=== PATIENT | male | born 1945 | race Caucasian/White ===

== ENCOUNTER 2017-12-14 22:47 | Inpatient (IN) | payer MEDICARE, OTHER, SELFPAY ==
[2017-12-14 22:47] VITALS: BP 155/76; PULSE 65; RESP 20; TEMP 37; O2SAT 97; BMI 27.6
--- NOTE | 2017-12-14 22:50 | EKG12_ITS ---
Test Reason : CP Blood Pressure : / mmHG Vent. Rate : 057 BPM Atrial Rate : 057 BPM P-R Int : 188 ms QRS Dur : 090 ms QT Int : 434 ms P-R-T Axes : 047 031 063 degrees QTc Int : [address]-segment abnormality: consider anterior-lateral myocardial injury/infarct: possibly acute Confirmed by ABRAHAM AMIN, MARY GRACE ([id number]), news editor GLORIA KAY ([id number]) on 12/17/2017 10:29:33 AM Referred By: Uzair Ralph Confirmed By:MARY GRACE ROSARIO MD
[2017-12-14 22:55] VITALS: BP 158/75; PULSE 52; RESP 14; O2SAT 98
--- NOTE | 2017-12-14 22:58 | ED.VISSUMM ---
- ER Visit Summary Date of Service: 12/14/17 Chief Complaint: Chest pain History of Present Illness: The patient is a [address] Monique. He reports she has substernal chest pain that began 1 hour ago. It is a sharp pain that is 10 out of 10 at worst 9-10 currently. Is worsened by nothing. Transiently relieved by aspirin. He is diaphoretic and short of breath with this. He has never had anything like this before. Physical Examination: Vitals: Stable. Afebrile. General: Diaphoretic and ill appearing. Well-nourished and well-developed. Head: Normocephalic atraumatic. Neck: Supple, no lymphadenopathy. No JVD. Nontender. Cardiovascular: Regular rate and rhythm. No murmurs. Respiratory: No respiratory distress. Clear to auscultation bilaterally. Abdominal: Soft, nontender, nondistended, normal bowel sounds. No guarding, rebound, or peritoneal signs. Back: Nontender. Extremities: Nontender, no edema. Skin: Normal color, no rash. Neurologic: Alert and oriented ?3. Cranial nerves II through XII are intact. Normal strength and sensation. Psych: Normal affect. Test Results: EKG is sinus bradycardia at [address] elevation leads V3 and V4 with out reciprocal changes. However, this is a change from his last EKG in April 2013. Emergency Department Course and Treatment: Patient was seen immediately upon arrival in the emergency department. He had taken aspirin at home p.o. He was given Brilinta p.o. He was given a 4000 unit heparin bolus. Treatment Plan: Patient was discussed with Dr. Brandt and will be taken to the [facility]. Disposition: Admitted in serious condition. Impression: 1. ST elevation VA. 2. Critical care time 30 minutes. This note was generated with Podclass dictation software. It may contain incorrect words, spelling, and punctuation that were not noted in review of the chart prior to signing ED Disposition - Plan for ED Patient: Chief Complaint: Chest Pain Referrals: lFash Monique MD [Primary Care Provider] -
--- NOTE | 2017-12-14 23:00 | RAD_ITS ---
STUDY: X-RAY CHEST REASON FOR EXAM: Male, 72 years old. CHEST PAIN TECHNIQUE: Single frontal view of the chest. COMPARISON: None. FINDINGS: Chronic appearing increased interstitial lung markings. There is no demonstrated pleural abnormality. Normal heart size. Normal mediastinum and greg. Normal visualized pulmonary arteries. There is atherosclerotic calcification of the aortic arch with tortuosity. There are diffuse degenerative changes of the visualized thoracic spine. There is degenerative osteoarthritis of the bilateral shoulders. There is no demonstrated abnormality of the visualized soft tissue structures of the upper abdomen. RAD/Chest 1 View (Portable) IMPRESSION: There are no acute findings. Electronically Signed: Victor Hugo Minor MD at 23:29 EDT , Service support ,
[2017-12-14] MEDS: 0.9% Normal Saline 1,000 ML 150 ML IV (23:01)
[2017-12-14] MEDS: Aspirin 81 MG TAB.CHEW 324 MG PO (23:01)
[2017-12-14] MEDS: TICAGRELOR 90 MG TABLET 180 MG PO (23:01)
[2017-12-14] MEDS: Heparin Injection (Vial) 5,000 UNIT/ML VIAL 4000 UNIT IV (23:02)
--- NOTE | 2017-12-14 23:09 | PCM.HP.STD ---
Problem List (1) STEMI (ST elevation myocardial infarction) Status: Acute Qualifiers: Involved coronary artery: right coronary artery Qualified Code(s): I21.11 - ST elevation (STEMI) myocardial infarction involving right coronary artery Comment: Anterior STEMI (2) Elevated BP without diagnosis of hypertension Status: Acute (3) Osteoarthritis Status: Chronic Qualifiers: Osteoarthritis location: knee Osteoarthritis type: unspecified Laterality: left Qualified Code(s): M17.12 - Unilateral primary osteoarthritis, left knee History of Present Illness Date of Admission: 12/14/17 Chief Complaint: Chest pain The patient is a 72 y/o M w/ PMHx: OA, otherwise notably healthy and active on no routine medications who presents to the [facility] ED on 12/14/17 with history of onset mild substernal and central chest pressure, mild 1-2/10 without associated symptoms the day prior in the evening, lasting ~ 30 minutes and resolving with return of symptoms on day of ED presentation ~ 1 hour prior to presentation, noted to have been at rest but prior had been baling hay all day w/ onset similar region, more severe chest pressure, heaviness with associated diaphoresis, dyspnea. He denied any nausea or emesis. Upon initial onset he noted 1-2/10 discomfort and recurrence he rated 9/10. Upon evaluation he noted this was unchanged. He noted he was taking baby ASA daily but has not over the last 2 weeks. He notes he was supposed to have upcoming L TKR. In the ED work-up included T 98.6, heart rate 65, BP 155/76, respiratory rate 20, 97% on room air, CBC with WBC 10.5, hemoglobin 15.8, platelet 280 without left shift but mildly increased lymph, pending coag, pending BMP, pending urine, pending chest x-ray. Cardiology consulted per ED and requested Brilinta 180 mg po load, heparin 4000 units IV ?1, aspirin 324 mg po ?1 w/ pending cardiac catheterization and intervention as needed. Past Medical History Past Medical History (Chronic Problems): Chronic Problems Osteoarthritis (Chronic) Allergies No Known Allergies Allergy (Verified 12/14/17 22:47) Home Medications: Ambulatory Orders Medication Instructions Recorded NK [NK] 12/14/17 Surgical History: - - Ectomy, left knee arthroscopic surgery. Psychiatric History: No pertinent psych hx Lives: Spouse/ Significant Other Smoking Status: Former smoker - Patient notes quit approximately 21 years prior with 1 pack per day tobacco usage cigarette prior to this. Tobacco Use: Non-smoker Alcohol: None Drugs: None - *Family History Maternal History Items: No pertinent history Paternal History Items: - - Patient notes a paternal family history of heart disease, fatal MD at age 59. Review of Systems Constitutional: Reports: Malaise, Fatigue. Denies: Chills, Fever, Weight Change HEENT: Denies: Head Aches, Sinus Congestion, Sinus Drainage Cardiovascular: Reports: Chest Pain, Chest Pressure, Chest Tightness, Heaviness. Denies: Edema, Light Headedness, Orthopnea, Palpitations, Syncope Respiratory: Reports: Shortness of Breath. Denies: Cough, Shortness of breath at rest, Sputum production Gastrointestinal: Denies: Abdominal Pain, Nausea, Vomiting Genitourinary: Denies: Dysuria Musculoskeletal: Reports: Joint stiffness. Denies: Joint Pain, Joint Tenderness Skin: Denies: Rash, Wounds Neurological: Denies: Numbness, Tingling, Focal weakness Psychiatric: Denies: Anxiety, Depression, Homicidal Ideations, Suicidal Ideations Hematologic/ Lymphatic: Denies: Easy Bruising, Easy Bleeding VTE Information - Inpt Only VTE Present on Admission: No VTE Mechan Device Prophylaxis: SCD's VTE Pharm Prophylaxis ordered?: Yes Patient Problems: Active and Suspected Problems STEMI (ST elevation myocardial infarction) (Acute) Anterior STEMI Elevated BP without diagnosis of hypertension (Acute) Subjective: Laying in the ED bed, diaphoretic, ill-appearing, ongoing chest discomfort. Objective: Physical Examination: General: awake, alert, oriented x 3 and cooperative, seated upright in the ED bed fatigued appearance, diaphoretic, ill-appearing. Skin: normal color, turgor, no icterus, cyanosis. HEENT: AT/NC, EOMI, PERRLA, dry MM, no carotid bruits or JVD noted. Lungs: CTA bilaterally, moderate effort, mild decrease BL bases, no rales, ronchi or wheezing. Heart: Regular rate and rhythm; no gallop, rub audible. Abdomen: soft, NTTP, ND, normal BS, no HSM. Extremities: no cyanosis, clubbing, or edema, distal pulses intact. Neurological: patient awake, alert, oriented x 3; cognitive function intact; pupils equally reactive to light and accomodation; cranial nerves II-XII grossly normal, moving all 4 extremities, no focal deficits, strength related to severely globally decreased secondary to acute presentation. Psychiatric: affect appears overly anxious given acute MD ongoing, no acute evidence of depressive feelings. - Physical Exam Vital Signs Temp Pulse Resp BP Pulse Ox 98.6 F 65 14 158/75 H 97 12/14/17 22:47 12/14/17 22:47 12/14/17 22:55 12/14/17 22:55 12/14/17 22:47 Oxygen Flow Rate (L/min) 2 Oxygen Delivery Method Nasal Cannula Weight: 181 lb 10.574 oz Body Mass Index (BMI) 27.6 Laboratory Tests Past 24 Hrs 12/14/17 12/14/17 12/14/17 22:54 22:54 22:54 WBC Pending RBC Pending Hgb Pending Hct Pending MCV Pending MCH Pending MCHC Pending RDW Pending RDW Differential Pending Plt Count Pending Neut % (Auto) Pending Absolute Neuts (auto) Pending Total Counted Pending PT Pending INR Pending APTT Pending Sodium Pending Potassium Pending Chloride Pending Carbon Dioxide Pending Anion Gap Pending BUN Pending Creatinine Pending Est GFR (MDRD) Af Amer Pending Est GFR (MDRD) Non-Af Pending BUN/Creatinine Ratio Pending Glucose Pending Calcium Pending Troponin I Pending Assessment/Plan All Active Problems STEMI (ST elevation myocardial infarction) (Acute) Elevated BP without diagnosis of hypertension (Acute) The patient is a 72 y/o M w/ PMHx: OA, otherwise notably healthy and active on no routine medications who presents to the [facility] ED on 12/14/17 with history of onset mild substernal and central chest pressure, mild 1-2/10 without associated symptoms the day prior in the evening, lasting ~ 30 minutes and resolving with return of symptoms on day of ED presentation ~ 1 hour prior to presentation, noted to have been at rest but prior had been baling hay all day w/ onset similar region, more severe chest pressure, heaviness with associated diaphoresis, dyspnea. (1) Chest Pain w/ Acute STEMI: EKG in ED w/ ST elevations V3-V4 without reciprocal changes noted, changed from prior EKG 04/2013, CXR pending. Trop pending. Will admit to ICU following cardiac catheterization, maintain on a monitored bed, continue serial cardiac enzymes and EKGs. Obtain magnesium level upon admission. Continue medical management w/ asa, low dose BB with change per cardiology discretion given mild bradycardia noted upon ED presentation, add high dose statin w/ AM FLP, brillinta 90 mg BID to start in AM. Cardiology consulted, plan for cardiac catheterization. Maintain NPO pending cardiac catheterization. ASA, NG, morphine. (2) Elevated BP without HTN Dx: Given presentation with #1, start low dose BB, add additional agent RAHEL/ARB if appropriate per cardiology discretion, PRN labetolol/lopressor. (3) OA: Notes prior L knee OA w/ arthroscopic surgery w/ planned operative intervention in 2-3 weeks for L TKR, will need to be delayed until cleared per his Athletic Equipment Custodian pending interventions as noted. (4) GI Prophylaxis: Famotidine. (5) DVT Prophylaxis: SCDs, heparin 4000 IV x 1 as noted, start chemoprophylaxis if appropriate in AM. Code Visit Inpatient E&M: 42480 Init Hosp L3
--- NOTE | 2017-12-14 23:10 | ED.RN ---
PT STATES HE NOTICED PAIN YESTERDAY. BAILED HAY ALL DAY TODAY. PAIN STATED ABOUT AN HOUR RECRUITING COORDINATOR.
[2017-12-14 23:12] LABS: International Normalized Ratio 1.1
[2017-12-14 23:13] VITALS: BP 146/80; PULSE 59; RESP 15; O2SAT 100
[2017-12-14 23:13] LABS: Partial Thromboplast Time 25.3 Seconds (24.1-36.2)
--- NOTE | 2017-12-14 23:14 | HP.PCM_ITS ---
Problem List (1) STEMI (ST elevation myocardial infarction) Status: Acute Qualifiers: Involved coronary artery: right coronary artery Qualified Code(s): I21.11 - ST elevation (STEMI) myocardial infarction involving right coronary artery Comment: Anterior STEMI (2) Elevated BP without diagnosis of hypertension Status: Acute (3) Osteoarthritis Status: Chronic Qualifiers: Osteoarthritis location: knee Osteoarthritis type: unspecified Laterality : left Qualified Code(s): M17.12 - Unilateral primary osteoarthritis, left knee History of Present Illness Date of Admission: 12/14/17 Chief Complaint: Chest pain The patient is a 72 y/o M w/ PMHx: OA, otherwise notably healthy and active on no routine medications who presents to the [facility] ED on 12/14/17 with history of onset mild substernal and central chest pressure, mild 1-2/10 without associated symptoms the day prior in the evening, lasting ~ 30 minutes and resolving with return of symptoms on day of ED presentation ~ 1 hour prior to presentation, noted to have been at rest but prior had been baling hay all day w / onset similar region, more severe chest pressure, heaviness with associated diaphoresis, dyspnea. He denied any nausea or emesis. Upon initial onset he noted 1-2/10 discomfort and recurrence he rated 9/10. Upon evaluation he noted this was unchanged. He noted he was taking baby ASA daily but has not over the last 2 weeks. He notes he was supposed to have upcoming L TKR. In the ED work- up included T 98.6, heart rate 65, BP 155/76, respiratory rate 20, 97% on room air, CBC with WBC 10.5, hemoglobin 15.8, platelet 280 without left shift but mildly increased lymph, pending coag, pending BMP, pending urine, pending chest x-ray. Cardiology consulted per ED and requested Brilinta 180 mg po load, heparin 4000 units IV ?1, aspirin 324 mg po ?1 w/ pending cardiac catheterization and intervention as needed. Past Medical History Past Medical History (Chronic Problems): Chronic Problems Osteoarthritis (Chronic) Allergies No Known Allergies Allergy (Verified 12/14/17 22:47) Home Medications: Ambulatory Orders Medication Instructions Recorded NK [NK] 12/14/17 Surgical History: - - Ectomy, left knee arthroscopic surgery. Psychiatric History: No pertinent psych hx Lives: Spouse/ Significant Other Smoking Status: Former smoker - Patient notes quit approximately 21 years prior with 1 pack per day tobacco usage cigarette prior to this. Tobacco Use: Non-smoker Alcohol: None Drugs: None - *Family History Maternal History Items: No pertinent history Paternal History Items: - - Patient notes a paternal family history of heart disease, fatal MA at age 59. Review of Systems Constitutional: Reports: Malaise, Fatigue. Denies: Chills, Fever, Weight Change HEENT: Denies: Head Aches, Sinus Congestion, Sinus Drainage Cardiovascular: Reports: Chest Pain, Chest Pressure, Chest Tightness, Heaviness. Denies: Edema, Light Headedness, Orthopnea, Palpitations, Syncope Respiratory: Reports: Shortness of Breath. Denies: Cough, Shortness of breath at rest, Sputum production Gastrointestinal: Denies: Abdominal Pain, Nausea, Vomiting Genitourinary: Denies: Dysuria Musculoskeletal: Reports: Joint stiffness. Denies: Joint Pain, Joint Tenderness Skin: Denies: Rash, Wounds Neurological: Denies: Numbness, Tingling, Focal weakness Psychiatric: Denies: Anxiety, Depression, Homicidal Ideations, Suicidal Ideations Hematologic/ Lymphatic: Denies: Easy Bruising, Easy Bleeding VTE Information - Inpt Only VTE Present on Admission: No VTE Mechan Device Prophylaxis: SCD's VTE Pharm Prophylaxis ordered?: Yes Patient Problems: Active and Suspected Problems STEMI (ST elevation myocardial infarction) (Acute) Anterior STEMI Elevated BP without diagnosis of hypertension (Acute) Subjective: Laying in the ED bed, diaphoretic, ill-appearing, ongoing chest discomfort. Objective: Physical Examination: General: awake, alert, oriented x 3 and cooperative, seated upright in the ED bed fatigued appearance, diaphoretic, ill-appearing. Skin: normal color, turgor, no icterus, cyanosis. HEENT: AT/NC, EOMI, PERRLA, dry MM, no carotid bruits or JVD noted. Lungs: CTA bilaterally, moderate effort, mild decrease BL bases, no rales, ronchi or wheezing. Heart: Regular rate and rhythm; no gallop, rub audible. Abdomen: soft, NTTP, ND, normal BS, no HSM. Extremities: no cyanosis, clubbing, or edema, distal pulses intact. Neurological: patient awake, alert, oriented x 3; cognitive function intact; pupils equally reactive to light and accomodation; cranial nerves II-XII grossly normal, moving all 4 extremities, no focal deficits, strength related to severely globally decreased secondary to acute presentation. Psychiatric: affect appears overly anxious given acute MA ongoing, no acute evidence of depressive feelings. - Physical Exam Vital Signs Temp Pulse Resp BP Pulse Ox 98.6 F 65 14 158/75 H 97 12/14/17 22:47 12/14/17 22:47 12/14/17 22:55 12/14/17 22:55 12/14/17 22:47 Oxygen Flow Rate (L/min) 2 Oxygen Delivery Method Nasal Cannula Weight: 181 lb 10.574 oz Body Mass Index (BMI) 27.6 Laboratory Tests Past 24 Hrs 12/14/17 12/14/17 12/14/17 22:54 22:54 22:54 WBC Pending RBC Pending Hgb Pending Hct Pending MCV Pending MCH Pending MCHC Pending RDW Pending RDW Differential Pending Plt Count Pending Neut % (Auto) Pending Absolute Neuts (auto) Pending Total Counted Pending PT Pending INR Pending APTT Pending Sodium Pending Potassium Pending Chloride Pending Carbon Dioxide Pending Anion Gap Pending BUN Pending Creatinine Pending Est GFR (MDRD) Af Amer Pending Est GFR (MDRD) Non-Af Pending BUN/Creatinine Ratio Pending Glucose Pending Calcium Pending Troponin I Pending Assessment/Plan All Active Problems STEMI (ST elevation myocardial infarction) (Acute) Elevated BP without diagnosis of hypertension (Acute) The patient is a 72 y/o M w/ PMHx: OA, otherwise notably healthy and active on no routine medications who presents to the [facility] ED on 12/14/17 with history of onset mild substernal and central chest pressure, mild 1-2/10 without associated symptoms the day prior in the evening, lasting ~ 30 minutes and resolving with return of symptoms on day of ED presentation ~ 1 hour prior to presentation, noted to have been at rest but prior had been baling hay all day w / onset similar region, more severe chest pressure, heaviness with associated diaphoresis, dyspnea. (1) Chest Pain w/ Acute STEMI: EKG in ED w/ ST elevations V3-V4 without reciprocal changes noted, changed from prior EKG 04/2013, CXR pending. Trop pending. Will admit to ICU following cardiac catheterization, maintain on a monitored bed, continue serial cardiac enzymes and EKGs. Obtain magnesium level upon admission. Continue medical management w/ asa, low dose BB with change per cardiology discretion given mild bradycardia noted upon ED presentation, add high dose statin w/ AM FLP, brillinta 90 mg BID to start in AM. Cardiology consulted, plan for cardiac catheterization. Maintain NPO pending cardiac catheterization. ASA, NG, morphine. (2) Elevated BP without HTN Dx: Given presentation with #1, start low dose BB, add additional agent RAHEL/ARB if appropriate per cardiology discretion, PRN labetolol/lopressor. (3) OA: Notes prior L knee OA w/ arthroscopic surgery w/ planned operative intervention in 2-3 weeks for L TKR, will need to be delayed until cleared per his Electric Meter Tester pending interventions as noted. (4) GI Prophylaxis: Famotidine. (5) DVT Prophylaxis: SCDs, heparin 4000 IV x 1 as noted, start chemoprophylaxis if appropriate in AM. Code Visit Inpatient E&M: 23936 Init Hosp L3
[2017-12-14 23:18] LABS: Absolute Lymphocyte Count 4.82 X10^3/ul (0.83-4.51); Absolute Neutrophil Count 4.5 X10^3/uL (2.0-7.7); Basophil# 0.02 X10^3/uL; Basophil% 0.2 % (0-1); Eosinophil# 0.26 X10^3/uL; Eosinophils% 2.5 % (0-5); Hematocrit 46.4 % (40-54); Hemoglobin 15.8 g/dl (13.0-16.5); Lymphocyte # 4.82 X10^3/ul (4.0); Lymphocyte % 46.1 % (19-41); Mean Corp Hgb Conc 34.1 g/gl (32-36); Mean Corpuscular Hgb 30.9 pg (27.0-32.0); Mean Corpuscular Volume 90.6 fL (80-94); Mean Platelet Vol. 10.1 fl (6.2-12.0); Monocyte# 0.88 X10^3/uL; Monocyte% 8.4 % (0-10); Neutrophil # 4.46 X10^3/uL (2.7-7.7); Neutrophil % 42.6 % (47-70); POSITIVE COUNT NO; POSITIVE DIFFERENTIAL NO; POSITIVE MORPHOLOGY NO; Platelet Count 280 K/mm3 (150-450); RBC Distribution Width SD 42.9 fl (35.1-43.9); Red Blood Count 5.12 M/mm3 (4.6-6.2); White Blood Count 10.5 K/mm3 (4.4-11.0)
[2017-12-14 23:19] VITALS: BP 173/86; PULSE 58; RESP 20; O2SAT 100
[2017-12-14 23:21] LABS: Anion Gap 10 (5-15); BUN 14 mg/dL (7-18); BUN/Creat Ratio 12.2 RATIO (10-20); Calcium,Total 8.8 mg/dL (8.5-10.1); Chloride 105 mmol/L (98-107); Creatinine, Serum 1.15 mg/dL (0.70-1.30); EST Glomerular Filtration Rate 67 mL/min (>60); Est Glom Filt Rate - Afr Amer 80 mL/min (>60); Glucose 122 mg/dL (74-106); Potassium 3.2 mmol/L (3.5-5.1); Sodium Level 140 mmol/L (136-145)
--- NOTE | 2017-12-14 23:25 | ED.RN ---
BRIAR CUTTER READY. PT TRANSFERRED VIA CART ON O2 NC, LIFE PACK, ALL MONITORS. PT STABLE. FAMILY AT BEDSIDE. PLACED IN BRIAR CUTTER WAITING ROOM. BELONGINGS WITH FAMILY. BEDSIDE REPORT GIVEN TO BRIAR CUTTER NURSE.
[2017-12-15] VITALS (37 sets, daily range): BP systolic 96–156; BP diastolic 51–94; PULSE 46–65; RESP 10–22; TEMP 36.2–36.8; O2SAT 95–100; BMI 27.6
[2017-12-15 01:11] LABS: ACT Activated Clotting Time 208 sec (74-137)
[2017-12-15 01:11] LABS: ACT Activated Clotting Time 169 sec (74-137)
[2017-12-15 01:11] LABS: ACT Activated Clotting Time 505 sec (74-137)
--- NOTE | 2017-12-15 01:33 | EKG12_ITS ---
Test Reason : STEMI Blood Pressure : / mmHG Vent. Rate : 059 BPM Atrial Rate : 059 BPM P-R Int : 190 ms QRS Dur : 094 ms QT Int : 456 ms P-R-T Axes : 048 037 073 degrees QTc Int : [address]-segment abnormality: consider anterior-lateral myocardial injury/infarct: possibly acute Confirmed by ABRAHAM AMIN, MARY GRACE ([id number]), editor magazine GLORIA KAY ([id number]) on 12/17/2017 11:18:34 AM Referred By: Uzair Ralph Confirmed By:MARY GRACE ROSARIO MD
--- NOTE | 2017-12-15 01:33 | ECHOD_ITS ---
Reason For Study: chest pain Procedure This was a 2D Doppler, Color Flow transthoracic echocardiogram. The study was technically difficult. Exam performed portable in ICU/CCU. Left Ventricle Normal size and thickness. The estimated ejection fraction is 40 %. Stage 1 diastolic dysfunction. Anterio-Basal: Mildly hypokinetic. Mid-Anterior : Severely Hypokinetic. Anterior [place] : Akinetic. There are regional wall motion abnormalities as specified. Right Ventricle Normal size and thickness. Normal systolic function. Atria Normal left atrium. Normal right atrium. Normal atrial septum. Mitral Valve The mitral valve is structurally normal. No prolapse or stenosis seen. Tricuspid Valve Normal tricuspid valve. Trivial tricuspid valve insufficiency. Right ventricular systolic pressure estimated to be 18 mmHg. Aortic Valve Trisinus/trileaflet aortic valve. Severe focal aortic valve calcification. Moderate restriction of the aortic valve. Mild aortic stenosis. Pulmonic Valve Normal pulmonic valve. Great Vessels Normal aortic root. Normal arch. Normal inferior vena cava. Inferior vena cava collapse with sniff. Pericardium/Pleural No pericardial effusion. MMode/2D Measurements & Calculations LVIDd: 4.3 cm IVSd: 1.1 cm LVOT diam: 2.3 cm LVIDs: 3.3 cm LVPWd: 1.1 cm LVOT area: 4.3 cm2 RVDd: 2.7 cm FS: 22.3 % Ao root diam: 3.0 cm LAV(MOD-bp): 54.3 ml LA A4 area: 15.5 cm2 LA dimension: 4.2 cm LAV(MOD-bp) Indexed: 27.7 ml/m2 LAV(MOD-sp2): 50.4 ml LAV(MOD-sp4): 44.1 ml RA A4 area: 11.8 cm2 Doppler Measurements & Calculations MV E max alfred: 78.8 cm/sec Lat Peak E' Alfred: 6.5 cm/sec Med Peak E' Alfred: 5.8 cm/sec MV A max alfred: 91.8 cm/sec E/E' lat: 12.2 E/E' med: 13.6 MV E/A: 0.86 Ao V2 max: 163.3 cm/sec LV V1 max: 91.7 cm/sec PA V2 max: 93.5 cm/sec Ao max P.7 mmHg LV V1 max P.4 mmHg CINTHIA(V,D): 2.4 cm2 TR max alfred: 182.8 cm/sec TR max P.4 mmHg Interpretation Summary The estimated ejection fraction is 40 %. Stage 1 diastolic dysfunction. There are regional wall motion abnormalities as specified. Trivial tricuspid valve insufficiency. Right ventricular systolic pressure estimated to be 18 mmHg. Mild aortic stenosis, but may be underestimated due to poor LV function. Moderate restriction of the aortic valve. Severe calcification and immobile non coronary cusp of aortic valve. There is no comparison study available. Ordering Physician: Yenifer Crow Referring Physician: Uzair Ralph Performed By: Sonja Cedeño, NANCY, RVT
--- NOTE | 2017-12-15 01:54 | NURSING ---
Dr. Ralph at bedside to interchange sheaths. Changed from 6Fr to 7Fr sheath. Patient tolerated well.
[2017-12-15 02:25] LABS: Mean Corp Hgb Conc 34.1 g/gl (32-36); Mean Corpuscular Hgb 31.4 pg (27.0-32.0); Mean Corpuscular Volume 91.9 fL (80-94); Mean Platelet Vol. 9.9 fl (6.2-12.0); Platelet Count 196 K/mm3 (150-450); RBC Distribution Width CV 12.9 % (11.6-14.6); RBC Distribution Width SD 42.4 fl (35.1-43.9); Red Blood Count 4.46 M/mm3 (4.6-6.2); White Blood Count 10.8 K/mm3 (4.4-11.0)
[2017-12-15 02:27] LABS: Scan Indicated on CBC? Y/N NO
[2017-12-15 04:26] LABS: Hematocrit 41.4 % (40-54); Mean Corp Hgb Conc 33.8 g/gl (32-36); Mean Corpuscular Volume 91.6 fL (80-94); Platelet Count 203 K/mm3 (150-450); RBC Distribution Width SD 42.4 fl (35.1-43.9); Red Blood Count 4.52 M/mm3 (4.6-6.2); White Blood Count 9.3 K/mm3 (4.4-11.0)
[2017-12-15 04:34] LABS: Anion Gap 10 (5-15); BUN 12 mg/dL (7-18); BUN/Creat Ratio 13.3 RATIO (10-20); Calcium,Total 7.8 mg/dL (8.5-10.1); Chloride 106 mmol/L (98-107); Cholesterol 156 mg/dL (200); EST Glomerular Filtration Rate 88 mL/min (>60); Est Glom Filt Rate - Afr Amer 107 mL/min (>60); Estimated Creatinine Clearance 72.83 ml/min; Glucose 119 mg/dL (74-106); High Density Lipoprotein 49 mg/dL; Potassium 3.9 mmol/L (3.5-5.1); Sodium Level 143 mmol/L (136-145); Triglycerides 61 mg/dL; Very Low Density Lipoprotein 12 mg/dL (5-40)
[2017-12-15 05:36] LABS: Scan Indicated on CBC? Y/N NO
[2017-12-15 06:15] LABS: M R Staph aureus DNA By PCR Negative (Negative); Probe Check PASS; Specimen Processing Control PASS
[2017-12-15 07:16] LABS: ACT Activated Clotting Time 131 sec (74-137)
[2017-12-15 07:16] LABS: ACT Activated Clotting Time 0 sec (74-137)
--- NOTE | 2017-12-15 09:03 | PCM.PROGNOTE ---
Patient Problems: Active and Suspected Problems STEMI (ST elevation myocardial infarction) (Acute) Anterior STEMI Elevated BP without diagnosis of hypertension (Acute) Subjective: Chief complaint: Follow-up after admission for acute ST elevation MA. Patient seen and examined. No acute events overnight. He denies any complaints today. He denies any more chest pain. Denied shortness of breath, palpitation, dizziness or lightheadedness. His vital signs are stable. - Physical Exam General: Alert, Oriented x3, Cooperative, No apparent distress HEENT: Atraumatic, PERRLA, EOMI, Normocephalic Oral: Moist Mucosa, No Gingival or Mucosal Lesions/ Ulcerations Neck: Supple, No JVD, Negative Carotid Bruits, Trachea Midline, Thyroid Normal Size and Texture Lungs: Clear to auscultation, Normal air movement, No rhonchi, No wheeze, No rales Cardiovascular: Regular rate, Regular Rhythm, Normal S1, Normal S2, No murmurs Abdomen: Bowel Sounds Present, Soft, Non Tender, Non-Distended, No Hepato-splenomegaly Extremities: No clubbing, No cyanosis, No edema Skin: No rashes, No breakdown Lymphatic: No Cervical, Supraclavicular, or Inguinal Adenopathy Neurological: Cranial nerves II-XII grossly intact, Motor Exam 5/5 strength throughout Psych/Mental Status: Normal Affect, Appropriate, Alert and oriented to time, place, person, mood and affect Vital Signs Temp Pulse Resp BP Pulse Ox 97.6 F L 52 L 12 140/67 H 100 12/15/17 02:30 12/15/17 08:00 12/15/17 08:00 12/15/17 08:00 12/15/17 08:00 Oxygen Flow Rate (L/min) 2 Oxygen Delivery Method Room Air Weight: 181 lb 10.574 oz Body Mass Index (BMI) 27.6 Intake and Output for Last 24 Hours 12/13/17 12/14/17 12/15/17 23:59 23:59 23:59 Output Total 600 / 600 Balance -600 / -600 Laboratory Tests Past 24 Hrs 12/14/17 12/15/17 12/15/17 23:41 00:17 00:41 WBC RBC Hgb Hct MCV MCH MCHC RDW RDW Differential Plt Count MPV Activated Clotting Time 169 H 505 H 208 H Sodium Potassium Chloride Carbon Dioxide Anion Gap BUN Creatinine Estim Creat Clear Calc Est GFR (MDRD) Af Amer Est GFR (MDRD) Non-Af BUN/Creatinine Ratio Glucose Calcium Troponin I Triglycerides Cholesterol LDL Cholesterol VLDL Cholesterol HDL Cholesterol MRSA (PCR) 12/15/17 12/15/17 12/15/17 01:50 02:15 02:15 WBC 10.8 RBC 4.46 L Hgb 14.0 Hct 41.0 MCV 91.9 MCH 31.4 MCHC 34.1 RDW 12.9 RDW Differential 42.4 Plt Count 196 MPV 9.9 Activated Clotting Time Sodium Potassium Chloride Carbon Dioxide Anion Gap BUN Creatinine Estim Creat Clear Calc Est GFR (MDRD) Af Amer Est GFR (MDRD) Non-Af BUN/Creatinine Ratio Glucose Calcium Troponin I 15.200 H* Triglycerides Cholesterol LDL Cholesterol VLDL Cholesterol HDL Cholesterol MRSA (PCR) Negative 12/15/17 12/15/17 12/15/17 04:05 04:05 04:05 WBC 9.3 RBC 4.52 L Hgb 14.0 Hct 41.4 MCV 91.6 MCH 31.0 MCHC 33.8 RDW 13.0 RDW Differential 42.4 Plt Count 203 MPV 10.0 Activated Clotting Time Sodium 143 Potassium 3.9 Chloride 106 Carbon Dioxide 27.0 Anion Gap 10 BUN 12 Creatinine 0.90 Estim Creat Clear Calc 72.83 Est GFR (MDRD) Af Amer 107 Est GFR (MDRD) Non-Af 88 BUN/Creatinine Ratio 13.3 Glucose 119 H Calcium 7.8 L Troponin I 28.900 H* Triglycerides 61 Cholesterol 156 LDL Cholesterol 95 VLDL Cholesterol 12 HDL Cholesterol 49 MRSA (PCR) 12/15/17 12/15/17 06:47 07:03 WBC RBC Hgb Hct MCV MCH MCHC RDW RDW Differential Plt Count MPV Activated Clotting Time 0 L 131 Sodium Potassium Chloride Carbon Dioxide Anion Gap BUN Creatinine Estim Creat Clear Calc Est GFR (MDRD) Af Amer Est GFR (MDRD) Non-Af BUN/Creatinine Ratio Glucose Calcium Troponin I Triglycerides Cholesterol LDL Cholesterol VLDL Cholesterol HDL Cholesterol MRSA (PCR) Medical Necessity - Tobacco Use Smoking Status: Former smoker Assessment/Plan All Active Problems STEMI (ST elevation myocardial infarction) (Acute) Elevated BP without diagnosis of hypertension (Acute) This is a 72 years old male patient presented to the emergency room because of chest pain and he was found to have acute ST elevation MA. #1 acute STEMI: Status post cardiac authorization, stents to LAD and angioplasty, official cath report is pending. Patient is on aspirin, statins, lisinopril and Brilinta. His vital signs are stable, blood pressure under better control. He still symptomatic, no chest pain or shortness of breath. Lipid profile reviewed, revealed normal cholesterol, LDL is 95 and HDL is 49. Routine blood work was unremarkable. Plan to potassium treatment, cardiology on the case. #2 hypokalemia: Admission potassium was 3.2, replaced and corrected. Today's potassium is 3.9. #3 DVT prophylaxis: SCDs. This note was generated with [employer] dictation software. It may contain incorrect words, spelling, and punctuation that were not noted in checking the note before signing. Code Visit Inpatient E&M: 00768 Subs Hosp L2
--- NOTE | 2017-12-15 09:08 | PN_ITS ---
Patient Problems: Active and Suspected Problems STEMI (ST elevation myocardial infarction) (Acute) Anterior STEMI Elevated BP without diagnosis of hypertension (Acute) Subjective: Chief complaint: Follow-up after admission for acute ST elevation [place]. Patient seen and examined. No acute events overnight. He denies any complaints today. He denies any more chest pain. Denied shortness of breath, palpitation, dizziness or lightheadedness. His vital signs are stable. - Physical Exam General: Alert, Oriented x3, Cooperative, No apparent distress HEENT: Atraumatic, PERRLA, EOMI, Normocephalic Oral: Moist Mucosa, No Gingival or Mucosal Lesions/ Ulcerations Neck: Supple, No JVD, Negative Carotid Bruits, Trachea Midline, Thyroid Normal Size and Texture Lungs: Clear to auscultation, Normal air movement, No rhonchi, No wheeze, No rales Cardiovascular: Regular rate, Regular Rhythm, Normal S1, Normal S2, No murmurs Abdomen: Bowel Sounds Present, Soft, Non Tender, Non-Distended, No Hepato- splenomegaly Extremities: No clubbing, No cyanosis, No edema Skin: No rashes, No breakdown Lymphatic: No Cervical, Supraclavicular, or Inguinal Adenopathy Neurological: Cranial nerves II-XII grossly intact, Motor Exam 5/5 strength throughout Psych/Mental Status: Normal Affect, Appropriate, Alert and oriented to time, place, person, mood and affect Vital Signs Temp Pulse Resp BP Pulse Ox 97.6 F L 52 L 12 140/67 H 100 12/15/17 02:30 12/15/17 08:00 12/15/17 08:00 12/15/17 08:00 12/15/17 08:00 Oxygen Flow Rate (L/min) 2 Oxygen Delivery Method Room Air Weight: 181 lb 10.574 oz Body Mass Index (BMI) 27.6 Intake and Output for Last 24 Hours 12/13/17 12/14/17 12/15/17 23:59 23:59 23:59 Output Total 600 / 600 Balance -600 / -600 Laboratory Tests Past 24 Hrs 12/14/17 12/15/17 12/15/17 23:41 00:17 00:41 WBC RBC Hgb Hct MCV MCH MCHC RDW RDW Differential Plt Count MPV Activated Clotting Time 169 H 505 H 208 H Sodium Potassium Chloride Carbon Dioxide Anion Gap BUN Creatinine Estim Creat Clear Calc Est GFR (MDRD) Af Amer Est GFR (MDRD) Non-Af BUN/Creatinine Ratio Glucose Calcium Troponin I Triglycerides Cholesterol LDL Cholesterol VLDL Cholesterol HDL Cholesterol MRSA (PCR) 12/15/17 12/15/17 12/15/17 01:50 02:15 02:15 WBC 10.8 RBC 4.46 L Hgb 14.0 Hct 41.0 MCV 91.9 MCH 31.4 MCHC 34.1 RDW 12.9 RDW Differential 42.4 Plt Count 196 MPV 9.9 Activated Clotting Time Sodium Potassium Chloride Carbon Dioxide Anion Gap BUN Creatinine Estim Creat Clear Calc Est GFR (MDRD) Af Amer Est GFR (MDRD) Non-Af BUN/Creatinine Ratio Glucose Calcium Troponin I 15.200 H* Triglycerides Cholesterol LDL Cholesterol VLDL Cholesterol HDL Cholesterol MRSA (PCR) Negative 12/15/17 12/15/17 12/15/17 04:05 04:05 04:05 WBC 9.3 RBC 4.52 L Hgb 14.0 Hct 41.4 MCV 91.6 MCH 31.0 MCHC 33.8 RDW 13.0 RDW Differential 42.4 Plt Count 203 MPV 10.0 Activated Clotting Time Sodium 143 Potassium 3.9 Chloride 106 Carbon Dioxide 27.0 Anion Gap 10 BUN 12 Creatinine 0.90 Estim Creat Clear Calc 72.83 Est GFR (MDRD) Af Amer 107 Est GFR (MDRD) Non-Af 88 BUN/Creatinine Ratio 13.3 Glucose 119 H Calcium 7.8 L Troponin I 28.900 H* Triglycerides 61 Cholesterol 156 LDL Cholesterol 95 VLDL Cholesterol 12 HDL Cholesterol 49 MRSA (PCR) 12/15/17 12/15/17 06:47 07:03 WBC RBC Hgb Hct MCV MCH MCHC RDW RDW Differential Plt Count MPV Activated Clotting Time 0 L 131 Sodium Potassium Chloride Carbon Dioxide Anion Gap BUN Creatinine Estim Creat Clear Calc Est GFR (MDRD) Af Amer Est GFR (MDRD) Non-Af BUN/Creatinine Ratio Glucose Calcium Troponin I Triglycerides Cholesterol LDL Cholesterol VLDL Cholesterol HDL Cholesterol MRSA (PCR) Medical Necessity - Tobacco Use Smoking Status: Former smoker Assessment/Plan All Active Problems STEMI (ST elevation myocardial infarction) (Acute) Elevated BP without diagnosis of hypertension (Acute) This is a 72 years old male patient presented to the emergency room because of chest pain and he was found to have acute ST elevation [place]. #1 acute STEMI: Status post cardiac authorization, stents to LAD and angioplasty , official cath report is pending. Patient is on aspirin, statins, lisinopril and Brilinta. His vital signs are stable, blood pressure under better control. He still symptomatic, no chest pain or shortness of breath. Lipid profile reviewed, revealed normal cholesterol, LDL is 95 and HDL is 49. Routine blood work was unremarkable. Plan to potassium treatment, cardiology on the case. #2 hypokalemia: Admission potassium was 3.2, replaced and corrected. Today's potassium is 3.9. #3 DVT prophylaxis: SCDs. This note was generated with [employer] dictation software. It may contain incorrect words, spelling, and punctuation that were not noted in checking the note before signing. Code Visit Inpatient E&M: 33542 Subs Hosp L2
[2017-12-15 09:15] LABS: ACT Activated Clotting Time 169 sec (74-137)
[2017-12-15] MEDS: Metoprolol Tartrate 25 MG Tablet PO (11:47)
[2017-12-15] MEDS: TICAGRELOR 90 MG TABLET PO ×2 (11:48→21:10)
[2017-12-15] MEDS: Aspirin 81 MG TAB.CHEW PO (11:48)
[2017-12-15] MEDS: Lisinopril 5 MG Tablet PO (11:48)
[2017-12-15] MEDS: Famotidine 20 MG Tablet PO ×2 (11:48→21:10)
--- NOTE | 2017-12-15 12:46 | PCM.PN.CARD ---
Subjectve: Patient seen and examined this morning. No further chest pain. Right groin is clean/dry/intact, no thrills, hematoma or bruits. EKG shows normal sinus rhythm with resolving anterior ST elevation. Echocardiogram reviewed this morning showing moderate dense anterior apical hypokinesis with an EF around 40%, moderately calcified and immobile noncoronary cusp. Hemoglobin and creatinine within nominal limits. Peak troponin of 28 thus far. Objective: Vital Signs Temp Pulse Resp BP Pulse Ox 98.3 F 55 L 17 156/83 H 96 12/15/17 12:00 12/15/17 12:00 12/15/17 12:00 12/15/17 12:00 12/15/17 12:00 Oxygen Flow Rate (L/min) 2 Oxygen Delivery Method Room Air Weight: 181 lb 10.574 oz Body Mass Index (BMI) 27.6 Intake and Output for Last 24 Hours 12/13/17 12/14/17 12/15/17 23:59 23:59 23:59 Intake Total 624 / 624 Output Total 850 / 850 Balance -226 / -226 General: Awake, Alert, Oriented x 3 HEENT: PERRL, EOMI, Sclera Non Icteric Neck: Supple, Good ROM, No Lymph Node Enlargement Lungs: Clear to auscultation Cardiovascular: Regular Rhythm, Normal S1, Normal S2, No Murmurs, No Rubs, No Gallops 12/15/17 02:15: WBC 10.8, RBC 4.46 L, Hgb 14.0, Hct 41.0, MCV 91.9, MCH 31.4, MCHC 34.1, RDW 12.9, RDW Differential 42.4, Plt Count 196, MPV 9.9 12/15/17 02:15: Troponin I 15.200 H* 12/15/17 04:05: WBC 9.3, RBC 4.52 L, Hgb 14.0, Hct 41.4, MCV 91.6, MCH 31.0, MCHC 33.8, RDW 13.0, RDW Differential 42.4, Plt Count 203, MPV 10.0 12/15/17 04:05: Sodium 143, Potassium 3.9, Chloride 106, Carbon Dioxide 27.0, Anion Gap 10, BUN 12, Creatinine 0.90, Est GFR (MDRD) Af Amer 107, Est GFR (MDRD) Non-Af 88, BUN/Creatinine Ratio 13.3, Glucose 119 H, Calcium 7.8 L, Triglycerides 61, Cholesterol 156, LDL Cholesterol 95, VLDL Cholesterol 12, HDL Cholesterol 49 12/15/17 04:05: Troponin I 28.900 H* Rhythm: EKG: ECHO: Stress Test: Cardiac Cath: Cardiac catheterization reviewed. Patient underwent high risk angioplasty and stenting of mid LAD with balloon angioplasty only of the ostium of diagonal 1. 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 PCI: CT Surgery: Holter monitor: EPS: PPM: CXR: Chest CT Scan: Medical Necessity - Tobacco Use Smoking Status: Former smoker Tobacco Use: Non-smoker Assessment/Plan 1. Coronary artery disease: The patient is status post acute anterior wall myocardial infarction with emergent angioplasty and stenting to his proximal mid LAD with balloon angioplasty only of the diagonal 1 branch utilizing kissing balloon technique. In addition he has not of her disease of his left circumflex, and a probable critical lesion in his mid right coronary artery. At this point he will continue baby aspirin, Brilinta, beta-daya, RAHEL inhibitor and statin based therapy. He will return in 3 weeks time for elective PCI of his mid RCA. His echocardiogram shows moderate LV dysfunction of the anterior apical wall with an EF around 40%. 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 2. Hyperlipidemia: Continue statin based medications. Repeat lipid profile in 6 weeks time. 3. Thank you very much for the opportunity to participate in the cardiac care of your patient. Code Visit Inpatient E&M: 10713 Subs Hosp L2
--- NOTE | 2017-12-15 12:50 | PN.CARD_ITS ---
Subjectve: Patient seen and examined this morning. No further chest pain. Right groin is clean/dry/intact, no thrills, hematoma or bruits. EKG shows normal sinus rhythm with resolving anterior ST elevation. Echocardiogram reviewed this morning showing moderate dense anterior apical hypokinesis with an EF around 40% , moderately calcified and immobile noncoronary cusp. Hemoglobin and creatinine within nominal limits. Peak troponin of 28 thus far. Objective: Vital Signs Temp Pulse Resp BP Pulse Ox 98.3 F 55 L 17 156/83 H 96 12/15/17 12:00 12/15/17 12:00 12/15/17 12:00 12/15/17 12:00 12/15/17 12:00 Oxygen Flow Rate (L/min) 2 Oxygen Delivery Method Room Air Weight: 181 lb 10.574 oz Body Mass Index (BMI) 27.6 Intake and Output for Last 24 Hours 12/13/17 12/14/17 12/15/17 23:59 23:59 23:59 Intake Total 624 / 624 Output Total 850 / 850 Balance -226 / -226 General: Awake, Alert, Oriented x 3 HEENT: PERRL, EOMI, Sclera Non Icteric Neck: Supple, Good ROM, No Lymph Node Enlargement Lungs: Clear to auscultation Cardiovascular: Regular Rhythm, Normal S1, Normal S2, No Murmurs, No Rubs, No Gallops 12/15/17 02:15: WBC 10.8, RBC 4.46 L, Hgb 14.0, Hct 41.0, MCV 91.9, MCH 31.4, MCHC 34.1, RDW 12.9, RDW Differential 42.4, Plt Count 196, MPV 9.9 12/15/17 02:15: Troponin I 15.200 H* 12/15/17 04:05: WBC 9.3, RBC 4.52 L, Hgb 14.0, Hct 41.4, MCV 91.6, MCH 31.0, MCHC 33.8, RDW 13.0, RDW Differential 42.4, Plt Count 203, MPV 10.0 12/15/17 04:05: Sodium 143, Potassium 3.9, Chloride 106, Carbon Dioxide 27.0, Anion Gap 10, BUN 12, Creatinine 0.90, Est GFR (MDRD) Af Amer 107, Est GFR (MDRD ) Non-Af 88, BUN/Creatinine Ratio 13.3, Glucose 119 H, Calcium 7.8 L, Triglycerides 61, Cholesterol 156, LDL Cholesterol 95, VLDL Cholesterol 12, HDL Cholesterol 49 12/15/17 04:05: Troponin I 28.900 H* Rhythm: EKG: ECHO: Stress Test: Cardiac Cath: Cardiac catheterization reviewed. Patient underwent high risk angioplasty and stenting of mid LAD with balloon angioplasty only of the ostium of diagonal 1. 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 PCI: CT Surgery: Holter monitor: EPS: PPM: CXR: Chest CT Scan: Medical Necessity - Tobacco Use Smoking Status: Former smoker Tobacco Use: Non-smoker Assessment/Plan 1. Coronary artery disease: The patient is status post acute anterior wall myocardial infarction with emergent angioplasty and stenting to his proximal mid LAD with balloon angioplasty only of the diagonal 1 branch utilizing kissing balloon technique. In addition he has not of her disease of his left circumflex, and a probable critical lesion in his mid right coronary artery. At this point he will continue baby aspirin, Brilinta, beta-daya, RAHEL inhibitor and statin based therapy. He will return in 3 weeks time for elective PCI of his mid RCA. His echocardiogram shows moderate LV dysfunction of the anterior apical wall with an EF around 40%. 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 2. Hyperlipidemia: Continue statin based medications. Repeat lipid profile in 6 weeks time. 3. Thank you very much for the opportunity to participate in the cardiac care of your patient. Code Visit Inpatient E&M: 50406 Subs Hosp L2
--- NOTE | 2017-12-15 14:19 | CRPHASE1 ---
Patient Data/Charges Phase II Referral:: [facility] Start Phase II:: FOLLOWING OFFICE VISIT WITH UX DEVELOPER DESIGNER Risk Factors/Lifestyle Smoking Status: Former smoker Hx Hypertension: No Hx Diabetes Mellitus Type 1: No Hx Diabetes Mellitus Type 2: No Hx Metabolic Disorders: No Hx Dyslipidemia: No Hx Obesity: No Height: 5 ft 8 in - BMI 27.6 Stress: Home/Family Risk Factor for Sedentary Lifestyle: Moderate Risk Laboratory Values: Cardiac Rehab Phase I Labs Triglycerides 61 mg/dL (-199) 12/15/17 04:05 Cholesterol 156 mg/dL (200) 12/15/17 04:05 LDL Cholesterol 95 mg/dL (0-130) 12/15/17 04:05 HDL Cholesterol 49 mg/dL (40-) 12/15/17 04:05 Phase I Education Given On:: [place], Nutrition, Antiplatelet medication Issues Affecting Care:: None Knowledge of Condition:: Yes Learning Preferences: Verbal, Written - AT BEDSIDE Hospital Course Presenting Symptoms:: STEMI Medical/Surgical History [place]:: Yes - STEMI CAD:: No Diabetes:: No Hypertension:: No Dyslipidemia:: No Arthritis:: Yes - OSTEOARTHRITIS Discharge/Home/Social Eval Discharge Disposition: Home Marital Status: - AT BEDSIDE
--- NOTE | 2017-12-15 14:23 | CRPHASE1_ITS ---
Patient Data/Charges Phase II Referral:: [facility] Start Phase II:: FOLLOWING OFFICE VISIT WITH VERIFYING MACHINE OPERATOR Risk Factors/Lifestyle Smoking Status: Former smoker Hx Hypertension: No Hx Diabetes Mellitus Type 1: No Hx Diabetes Mellitus Type 2: No Hx Metabolic Disorders: No Hx Dyslipidemia: No Hx Obesity: No Height: 5 ft 8 in - BMI 27.6 Stress: Home/Family Risk Factor for Sedentary Lifestyle: Moderate Risk Laboratory Values: Cardiac Rehab Phase I Labs Triglycerides 61 mg/dL (-199) 12/15/17 04:05 Cholesterol 156 mg/dL (200) 12/15/17 04:05 LDL Cholesterol 95 mg/dL (0-130) 12/15/17 04:05 HDL Cholesterol 49 mg/dL (40-) 12/15/17 04:05 Phase I Education Given On:: [place], Nutrition, Antiplatelet medication Issues Affecting Care:: None Knowledge of Condition:: Yes Learning Preferences: Verbal, Written - AT BEDSIDE Hospital Course Presenting Symptoms:: STEMI Medical/Surgical History [place]:: Yes - STEMI CAD:: No Diabetes:: No Hypertension:: No Dyslipidemia:: No Arthritis:: Yes - OSTEOARTHRITIS Discharge/Home/Social Eval Discharge Disposition: Home Marital Status: - AT BEDSIDE
--- NOTE | 2017-12-15 14:27 | CRPH1.INST_ITS ---
General Education CAD and cardiac anatomy and function:: Patient communicates acknowledgment, Family communicates acknowledgment Explanation of diagnoses and procedures:: Patient communicates acknowledgment, Family communicates acknowledgment Sign/Symptoms of [place]:: Patient communicates acknowledgment, Family communicates acknowledgment Antiplatelet therapy: Patient communicates acknowledgment, Family communicates acknowledgment Proper use of NTG-SL: Patient communicates acknowledgment, Family communicates acknowledgment Emergency procedures and activation of EMS: Patient communicates acknowledgment , Family communicates acknowledgment Compliance of all prescribed medications: Patient communicates acknowledgment, Family communicates acknowledgment - AT BEDSIDE Smoking Recommendations Include:: Previous smoker; encourage continued cessation Nicotine/Smoking Response Code:: Patient communicates acknowledgment, Family communicates acknowledgment Dyslipidemia Patient Dyslipidemia Risk Factors Are:: LDL Recommendations Include:: Lipid profile provided, Reviewed NCEP/ATP guidelines, Therapeutic Lifestyle Change dietary guidelines Dyslipidemia Response Code:: Patient communicates acknowledgment, Family communicates acknowledgment Overweight/Obesity Patient Overweight/Obesity Risk Factors Are:: BMI Normal [24-29 & > 65 years old ] Recommendations Include:: Weight loss of 5-10%, Reduced calorie diet, Exercise 5 -7 times/week Overweight/Obesity:: Patient communicates acknowledgment Hypertension Patient Hypertension Risk Factors Are:: No documented hx of HTN Diabetes Patient Diabetes Risk Factors Are:: No documented hx of diabetes Metabolic Syndrome Recommendations Include:: Does not meet criteria Sedentary Patient Sedentary Risk Factors Are:: Lack of regular exercise Recommendations Include:: Aerobic exercise 5-7 times/week for 20-30 minutes continuously, Benefits of regular exercise, Discussed home walking program, Monitored Outpatient Cardiac Rehab Sedentary Response Code:: Patient communicates acknowledgment, Family communicates acknowledgment Stress Recommendations Include:: Identification of stressors, and assessment of coping skills, Stress management techniques Stress Response Code:: Patient communicates acknowledgment, Family communicates acknowledgment
--- NOTE | 2017-12-15 15:26 | CASEMGMT ---
RN CM Assessment Link. DC PLAN: HOME No needs identified. Brooklynn DOWDN RN ACM
[2017-12-15] MEDS: Atorvastatin Calcium 80 MG Tablet PO (21:10)
[2017-12-15] MEDS: Carvedilol 3.125 MG TABLET PO (21:10)
[2017-12-16] VITALS (31 sets, daily range): BP systolic 102–165; BP diastolic 55–94; PULSE 47–73; RESP 14–62; TEMP 36.6–37.1; O2SAT 95–99
--- NOTE | 2017-12-16 08:10 | PCM.PROGNOTE ---
Patient Problems: Active and Suspected Problems STEMI (ST elevation myocardial infarction) (Acute) Anterior STEMI Elevated BP without diagnosis of hypertension (Acute) Subjective: Chief complaint: Follow-up after admission for acute ST elevation PR. Patient seen and examined. Reportedly and overnight, patient had short run of nonsustained V. tach. He was asymptomatic. This morning, he denied any symptoms. Denied chest pain or shortness of breath. Denied dizziness or lightheadedness. Has been bradycardic, heart rate has been in the 50s, other vital signs are stable. - Physical Exam General: Alert, Oriented x3, Cooperative, No apparent distress HEENT: Atraumatic, PERRLA, EOMI, Normocephalic Oral: Moist Mucosa, No Gingival or Mucosal Lesions/ Ulcerations Neck: Supple, No JVD, Negative Carotid Bruits, Trachea Midline, Thyroid Normal Size and Texture Lungs: Clear to auscultation, No rhonchi, No wheeze, No rales, Diminished Cardiovascular: Regular rate, Regular Rhythm, Normal S1, Normal S2, No murmurs, Bradycardic Abdomen: Bowel Sounds Present, Soft, Non Tender, Non-Distended, No Hepato-splenomegaly Extremities: No clubbing, No cyanosis, No edema Skin: No rashes, No breakdown Lymphatic: No Cervical, Supraclavicular, or Inguinal Adenopathy Neurological: Cranial nerves II-XII grossly intact, Motor Exam 5/5 strength throughout Psych/Mental Status: Normal Affect, Appropriate, Alert and oriented to time, place, person, mood and affect Vital Signs Temp Pulse Resp BP Pulse Ox 98.1 F 47 L 16 108/58 L 97 12/16/17 00:00 12/16/17 06:00 12/16/17 06:00 12/16/17 06:00 12/16/17 06:00 Oxygen Flow Rate (L/min) 2 Oxygen Delivery Method Room Air Weight: 182 lb 1.629 oz Body Mass Index (BMI) 27.6 Intake and Output for Last 24 Hours 12/14/17 12/15/17 12/16/17 23:59 23:59 23:59 Intake Total 874 / 874 Output Total 1675 / 1675 350 / 350 Balance -801 / -801 -350 / -350 Laboratory Tests Past 24 Hrs 12/15/17 09:05 Activated Clotting Time 169 H Medical Necessity - Tobacco Use Smoking Status: Former smoker Tobacco Use: Non-smoker Assessment/Plan All Active Problems STEMI (ST elevation myocardial infarction) (Acute) Elevated BP without diagnosis of hypertension (Acute) This is a 72 years old male patient presented to the emergency room because of chest pain and he was found to have acute ST elevation PR. #1 acute STEMI: Status post cardiac authorization, stents to LAD and angioplasty, official cath report is pending. Patient is on aspirin, statins, lisinopril and Brilinta. Apart from bradycardia, other vital signs are stable. He is asymptomatic. Reportedly, he had a run of nonsustained V. tach overnight. At this time, is in sinus rhythm, rate is controlled. Cardiology on the case. Plan to check his potassium and magnesium, continue same treatment. #2 hypokalemia: Admission potassium was 3.2, replaced and corrected. Yesterday's potassium is 3.9. #3 DVT prophylaxis: SCDs. This note was generated with [employer] dictation software. It may contain incorrect words, spelling, and punctuation that were not noted in checking the note before signing. Code Visit Inpatient E&M: 54384 Subs Hosp L2
--- NOTE | 2017-12-16 08:14 | PN_ITS ---
Patient Problems: Active and Suspected Problems STEMI (ST elevation myocardial infarction) (Acute) Anterior STEMI Elevated BP without diagnosis of hypertension (Acute) Subjective: Chief complaint: Follow-up after admission for acute ST elevation [place]. Patient seen and examined. Reportedly and overnight, patient had short run of nonsustained V. tach. He was asymptomatic. This morning, he denied any symptoms. Denied chest pain or shortness of breath. Denied dizziness or lightheadedness. Has been bradycardic, heart rate has been in the 50s, other vital signs are stable. - Physical Exam General: Alert, Oriented x3, Cooperative, No apparent distress HEENT: Atraumatic, PERRLA, EOMI, Normocephalic Oral: Moist Mucosa, No Gingival or Mucosal Lesions/ Ulcerations Neck: Supple, No JVD, Negative Carotid Bruits, Trachea Midline, Thyroid Normal Size and Texture Lungs: Clear to auscultation, No rhonchi, No wheeze, No rales, Diminished Cardiovascular: Regular rate, Regular Rhythm, Normal S1, Normal S2, No murmurs, Bradycardic Abdomen: Bowel Sounds Present, Soft, Non Tender, Non-Distended, No Hepato- splenomegaly Extremities: No clubbing, No cyanosis, No edema Skin: No rashes, No breakdown Lymphatic: No Cervical, Supraclavicular, or Inguinal Adenopathy Neurological: Cranial nerves II-XII grossly intact, Motor Exam 5/5 strength throughout Psych/Mental Status: Normal Affect, Appropriate, Alert and oriented to time, place, person, mood and affect Vital Signs Temp Pulse Resp BP Pulse Ox 98.1 F 47 L 16 108/58 L 97 12/16/17 00:00 12/16/17 06:00 12/16/17 06:00 12/16/17 06:00 12/16/17 06:00 Oxygen Flow Rate (L/min) 2 Oxygen Delivery Method Room Air Weight: 182 lb 1.629 oz Body Mass Index (BMI) 27.6 Intake and Output for Last 24 Hours 12/14/17 12/15/17 12/16/17 23:59 23:59 23:59 Intake Total 874 / 874 Output Total 1675 / 1675 350 / 350 Balance -801 / -801 -350 / -350 Laboratory Tests Past 24 Hrs 12/15/17 09:05 Activated Clotting Time 169 H Medical Necessity - Tobacco Use Smoking Status: Former smoker Tobacco Use: Non-smoker Assessment/Plan All Active Problems STEMI (ST elevation myocardial infarction) (Acute) Elevated BP without diagnosis of hypertension (Acute) This is a 72 years old male patient presented to the emergency room because of chest pain and he was found to have acute ST elevation [place]. #1 acute STEMI: Status post cardiac authorization, stents to LAD and angioplasty , official cath report is pending. Patient is on aspirin, statins, lisinopril and Brilinta. Apart from bradycardia, other vital signs are stable. He is asymptomatic. Reportedly, he had a run of nonsustained V. tach overnight. At this time, is in sinus rhythm, rate is controlled. Cardiology on the case. Plan to check his potassium and magnesium, continue same treatment. #2 hypokalemia: Admission potassium was 3.2, replaced and corrected. Yesterday' s potassium is 3.9. #3 DVT prophylaxis: SCDs. This note was generated with [employer] dictation software. It may contain incorrect words, spelling, and punctuation that were not noted in checking the note before signing. Code Visit Inpatient E&M: 55494 Subs Hosp L2
[2017-12-16] MEDS: Lisinopril 5 MG Tablet PO (08:46)
[2017-12-16] MEDS: Famotidine 20 MG Tablet PO ×2 (08:46→21:18)
[2017-12-16] MEDS: Aspirin 81 MG TAB.CHEW PO (08:47)
[2017-12-16] MEDS: TICAGRELOR 90 MG TABLET PO ×2 (08:47→21:18)
[2017-12-16 08:59] LABS: Magnesium 1.8 mg/dL (1.6-2.6)
--- NOTE | 2017-12-16 09:47 | PCM.PN.CARD ---
Subjectve: Patient doing very well this morning. No chest pain symptoms. EKG shows normal sinus rhythm with resolving anterior T-wave inversion. Telemetry shows normal sinus rhythm with a 6 beat run of idioventricular rhythm, and ventricular ectopy. Creatinine and hemoglobin are within nominal limits. Objective: Vital Signs Temp Pulse Resp BP Pulse Ox 98 F 59 L 19 H 132/70 H 99 12/16/17 08:00 12/16/17 09:00 12/16/17 09:00 12/16/17 09:00 12/16/17 09:00 Oxygen Flow Rate (L/min) 2 Oxygen Delivery Method Room Air Weight: 182 lb 1.629 oz Body Mass Index (BMI) 27.6 Intake and Output for Last 24 Hours 12/14/17 12/15/17 12/16/17 23:59 23:59 23:59 Intake Total 874 / 874 Output Total 1675 / 1675 350 / 350 Balance -801 / -801 -350 / -350 General: Awake, Alert, Oriented x 3 HEENT: PERRL, EOMI, Sclera Non Icteric Neck: Supple, Good ROM, No Lymph Node Enlargement Lungs: Rales - Soto Bases Cardiovascular: Regular Rhythm, Normal S1, Normal S2, No Murmurs, No Rubs, No Gallops Vascular: No Carotid Bruits, Normal Femoral Pulses, Normal Radial Pulses, Normal Dorsalis Pedal Pulse, Normal Posterior Tibial Pulses Abdomen: Bowel Sounds Present, Soft, Non Tender, No HSM, No Organomegaly Extremities: No Cyanosis, No Clubbing, No edema Neurological: No Focal Motor or Sensory Deficit 12/16/17 08:35: Potassium 4.0, Magnesium 1.8 Rhythm: EKG: ECHO: Moderate LV dysfunction with an EF around 35-40%, significant calcification of noncoronary cusp of the aortic valve. Mild aortic stenosis. Stress Test: Cardiac Cath: PCI: CT Surgery: Holter monitor: EPS: PPM: CXR: Chest CT Scan: Medical Necessity - Tobacco Use Smoking Status: Former smoker Tobacco Use: Non-smoker Assessment/Plan 1. Coronary artery disease: The patient is status post acute anterior wall myocardial infarction with emergent angioplasty and stenting to his proximal mid LAD with balloon angioplasty only of the diagonal 1 branch utilizing kissing balloon technique. In addition he has nonobstructive disease of his left circumflex, and a probable critical lesion in his mid right coronary artery. We will make arrangements for the patient to return in 3 weeks time for PCI of the RCA. At this point he will continue baby aspirin, Brilinta, beta-daya, RAHEL inhibitor and statin based therapy. Patient has some mild crackles at his bases today, and with his recent OK and poor ejection fraction recommend Lasix 20 mg IV ?1 now followed by 20 mg of Lasix daily. His echocardiogram shows moderate LV dysfunction of the anterior apical wall with an EF around 40%. 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 We will hold his Coreg this morning given his heart rate in the 50s, then resume at this evening. As long as the patient's MEP is greater than 60, we will continue Coreg therapy. Patient will participate in cardiac rehab after his second angioplasty. 2. Hyperlipidemia: Continue statin based medications. Repeat lipid profile in 6 weeks time. 3. Thank you very much for the opportunity to participate in the cardiac care of your patient. Patient may be transferred to stepdown unit in PCU and discharge home tomorrow. Code Visit Inpatient E&M: 82154 Subs Hosp L2
[2017-12-16] MEDS: Furosemide 40 MG/4 ML Vial 20 MG IV (11:29)
[2017-12-16] MEDS: 0.9% NaCl Peripheral Flush Adult/Peds IV (11:32)
--- NOTE | 2017-12-16 14:56 | CASEMGMT ---
RN CM Note: [employer] savings card given to pt and explained. Brooklynn DOWDN RN ACM
[2017-12-16] MEDS: Atorvastatin Calcium 80 MG Tablet PO (21:18)
[2017-12-16] MEDS: Carvedilol 3.125 MG TABLET PO (21:18)
[2017-12-17] VITALS (10 sets, daily range): BP systolic 106–130; BP diastolic 57–89; PULSE 50–76; RESP 16–23; TEMP 36.9; O2SAT 96–99
[2017-12-17] MEDS: Aspirin 81 MG TAB.CHEW PO (07:45)
[2017-12-17] MEDS: Lisinopril 5 MG Tablet PO (07:45)
[2017-12-17] MEDS: Famotidine 20 MG Tablet PO (07:45)
[2017-12-17] MEDS: TICAGRELOR 90 MG TABLET PO (07:45)
[2017-12-17] MEDS: Carvedilol 3.125 MG TABLET PO (07:45)
--- NOTE | 2017-12-17 09:37 | DCINST_ITS ---
- Discharge Diagnoses Current Active Problems: Current Active and Chronic Problems (Last Updated 12/16/17 @ 10:07 by Ary Granados ) STEMI (ST elevation myocardial infarction) (Acute 12/15/17) Anterior STEMI Osteoarthritis (Chronic) Elevated BP without diagnosis of hypertension (Acute) You will use the following diet at home:: Cardiac Your food should be the consistency of: Regular Discharge Activity: Return to Normal Activity Weight Bearing Status: Weight bearing as tolerated Call your doctor if you observe: Fever of 101 or Higher, Shortness of breath, Dizziness, Fainting spells, Chest pain, Increased palpitations (irregular heartbeat), Uncontrolled pain Instructions: Coronary Stents, Discharge Instructions for Heart Attack Allergies/Adverse Reactions: Allergies oseltamivir [From Tamiflu] Allergy (Verified 12/14/17 23:19) Anaphylaxis Medications to take at Discharge Aspirin [Aspirin, Baby] 81 mg PO DAILY@0800 #90 tab.chew 12/17/17 Atorvastatin Calcium [Lipitor] 80 mg PO QHS #90 tab 12/17/17 Carvedilol [Coreg (Beta Vinod)] 3.125 mg PO BID #90 tab 12/17/17 Lisinopril [Zestril] 5 mg PO DAILY #90 tab 12/17/17 Ticagrelor [Brilinta] 90 mg PO BID #90 tab 12/17/17 The following prescriptions were given: Aspirin [Aspirin, Baby] 81 mg PO DAILY@0800 #90 tab.chew Atorvastatin Calcium [Lipitor] 80 mg PO QHS #90 tab Lisinopril [Zestril] 5 mg PO DAILY #90 tab Carvedilol [Coreg (Beta Vinod)] 3.125 mg PO BID #90 tab Ticagrelor [Brilinta] 90 mg PO BID #90 tab Primary Care Physician: Flash Monique MD [Primary Care Provider] - Please follow up with your Primary Care Physician in: 2 weeks. Test Results: Test results from this visit will be discussed in further detail at your follow- up appointment, if applicable. Please Follow Up With: Ye David MD When: please call his office.
--- NOTE | 2017-12-17 10:15 | PCM.PN.CARD ---
Subjectve: Patient feeling very well this morning. No 24 hour events. Telemetry negative. Right groin is clean/dry/intact. Hemoglobin and creatinine within nominal limits. EKG shows resolving anterior ST elevation myocardial infarction and T-wave inversion. Objective: Vital Signs Temp Pulse Resp BP Pulse Ox 98.4 F 52 L 17 125/81 H 97 12/17/17 02:46 12/17/17 07:21 12/17/17 05:52 12/17/17 05:52 12/17/17 07:37 Oxygen Flow Rate (L/min) 2 Oxygen Delivery Method Room Air Weight: 181 lb 14.102 oz Body Mass Index (BMI) 27.6 Intake and Output for Last 24 Hours 12/15/17 12/16/17 12/17/17 23:59 23:59 23:59 Intake Total 874 / 874 960 / 960 60 / 60 Output Total 1675 / 1675 2940 / 2940 550 / 550 Balance -801 / -801 -1980 / -1980 -490 / -490 General: Awake, Alert, Oriented x 3 HEENT: PERRL, EOMI, Sclera Non Icteric Neck: Supple, Good ROM, No Lymph Node Enlargement Lungs: Clear to auscultation Cardiovascular: Regular Rhythm, Normal S1, Normal S2, No Rubs, No Gallops Murmur Murmur: Grade 2/6, Crescendo-Decrescendo Vascular: No Carotid Bruits, Normal Femoral Pulses, Normal Radial Pulses, Normal Dorsalis Pedal Pulse, Normal Posterior Tibial Pulses Abdomen: Bowel Sounds Present, Soft, Non Tender, No HSM, No Organomegaly Extremities: No Cyanosis, No Clubbing, No edema Neurological: No Focal Motor or Sensory Deficit Rhythm: EKG: ECHO: Stress Test: Cardiac Cath: PCI: CT Surgery: Holter monitor: EPS: PPM: CXR: Chest CT Scan: Medical Necessity - Tobacco Use Smoking Status: Former smoker Tobacco Use: Non-smoker Assessment/Plan 1. Coronary artery disease: The patient is status post acute anterior wall myocardial infarction with emergent angioplasty and stenting to his proximal mid LAD with balloon angioplasty only of the diagonal 1 branch utilizing kissing balloon technique. In addition he has nonobstructive disease of his left circumflex, and a probable critical lesion in his mid right coronary artery. We will make arrangements for the patient to return in 3 weeks time for PCI of the RCA. At this point he will continue baby aspirin, Brilinta, beta-daya, RAHEL inhibitor and statin based therapy. Patient received some Lasix yesterday, which caused him to have a flushing sensation, and I recommended discontinuation of Lasix at this time. Should the patient developed congestive heart failure symptoms, we can always add this later. His echocardiogram shows moderate LV dysfunction of the anterior apical wall with an EF around 40%. 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 We will restart his Coreg therapy this morning. Patient will participate in cardiac rehab after his second angioplasty. 2. Hyperlipidemia: Continue statin based medications. Repeat lipid profile in 6 weeks time. 3. Thank you very much for the opportunity to participate in the cardiac care of your patient. Patient may be discharged home. He will follow-up with Dr. David going forward. Code Visit Inpatient E&M: 89833 Subs Hosp L2
--- NOTE | 2017-12-17 13:03 | PCM.DC.SUM ---
Discharge Date and Diagnosis Date of Admission: 12/14/17 Date of Discharge: 12/17/17 - Primary Discharge Diagnosis #[address] elevation [place], status post successful PTCA/D is to proximal to mid LAD, status post PCI with PTCA to the posterior to proximal first diagonal branch. #2 ischemic cardiomyopathy/ejection fraction of 40%. #3 hypokalemia. - Secondary Discharge Diagnosis Chronic Problems (Last Updated 12/16/17 @ 10:07 by Ary Granados) Osteoarthritis (Chronic) Hospital Course and Treatment Imaging Results: Clinical Impression(s) from Imaging Studies Chest X-Ray 12/14/17 23:00 IMPRESSION: There are no acute findings. Electronically Signed: Victor Hugo Minor MD at 23:29 EDT , Service support , Dr. David, cardiology. Procedures: 2-D Echocardiogram, Cardiac catheterization, EKG Summary of Care Provided: Patient seen and examined on the day of discharge and appeared to be stable to be discharged home. He denies any symptoms. His vital signs are stable. - Physical Exam General: Alert, Oriented x3, Cooperative, No apparent distress. HEENT: Atraumatic, PERRLA, EOMI. Neck: Supple, No JVD, Negative Carotid Bruits, Trachea Midline, Thyroid Normal. Lungs: Clear to auscultation, Normal air movement, No rhonchi, No wheeze, No rales. Cardiovascular: Regular rate, Regular Rhythm, Normal S1, Normal S2, PMI Normal. Abdomen: Bowel Sounds Present, Soft, Non Tender, Non-Distended, No Hepato-splenomegaly. Extremities: No clubbing, No cyanosis, No edema Skin: No rashes, No breakdown Neurological: Neuro grossly intact Vital Signs are stable. Hospital course: The patient is a 72 year old M admitted because of chest pain and he was found to have acute ST elevation CA. He underwent emergent cardiac catheterization that revealed CAD of the proximal to mid LAD as well as posterior to the proximal first diagonal branch and he underwent successful PTCA and drug-eluting stent to proximal to mid LAD and PTCA to the ostial to proximal first diagonal branch. Patient was treated with aspirin, statins, beta blockers, SANKET inhibitors and loading dose of Brilinta. 2D echocardiography revealed ejection fraction 40%, mild aortic stenosis, other findings reviewed. On cardiac catheterization, he also was found to have probably a critical lesion in the mid RCA and cardiology is planning to have patient return in 3 weeks for PCI of the RCA. After the emergent cardiac catheterization and stenting, patient did very well and he had no more chest pain or shortness of breath. His vital signs remained stable. Patient discharged home in a stable medical condition, discharged on aspirin, Lipitor, Coreg, lisinopril and Brilinta, plan to follow-up with cardiology in 3 weeks for PCI of the RCA, recommended follow-up with PCP in 2 weeks. Discharge Activity: Return to Normal Activity Weight Bearing Status: Weight bearing as tolerated Call your doctor if you observe: Fever of 101 or Higher, Shortness of breath, Dizziness, Fainting spells, Chest pain, Increased palpitations (irregular heartbeat), Uncontrolled pain Home Medications: Medications to take at Discharge Aspirin [Aspirin, Baby] 81 mg PO DAILY@0800 #90 tab.chew 12/17/17 Atorvastatin Calcium [Lipitor] 80 mg PO QHS #90 tab 12/17/17 Carvedilol [Coreg (Beta Vinod)] 3.125 mg PO BID #90 tab 12/17/17 Lisinopril [Zestril] 5 mg PO DAILY #90 tab 12/17/17 Ticagrelor [Brilinta] 90 mg PO BID #90 tab 12/17/17 Following Prescrptions Were Given to Patient: Aspirin [Aspirin, Baby] 81 mg PO DAILY@0800 #90 tab.chew Atorvastatin Calcium [Lipitor] 80 mg PO QHS #90 tab Lisinopril [Zestril] 5 mg PO DAILY #90 tab Carvedilol [Coreg (Beta Vinod)] 3.125 mg PO BID #90 tab Ticagrelor [Brilinta] 90 mg PO BID #90 tab Primary Care Physician: Flash Monique MD [Primary Care Provider] - Please follow up with your Primary Care Physician in: 2 weeks. Please Follow Up With: Ye David MD When: please call his office. Patient Instructions: Coronary Stents, Discharge Instructions for Heart Attack Disposition: Home Minutes spent on discharge:: 32 Patient Condition:: Stable Medical Necessity - Tobacco Use Smoking Status: Former smoker Tobacco Use: Non-smoker Meaningful Use Info Meaningful Use Diagnoses (Choose all that apply): AMI - AMI Aspirin given w/in 24hrs of arrival?: Yes ASA at discharge?: Yes Statins at discharge?: Yes Sanket/ARB at discharge?: Yes Beta Vinod at discharge?: Yes Done w/ Acute [place] measure.: Yes Code Visit Inpatient E&M: 21995 Disch Hosp
--- NOTE | 2017-12-17 13:10 | DS.PCM_ITS ---
Discharge Date and Diagnosis Date of Admission: 12/14/17 Date of Discharge: 12/17/17 - Primary Discharge Diagnosis #[address] elevation [place], status post successful PTCA/D is to proximal to mid LAD, status post PCI with PTCA to the posterior to proximal first diagonal branch. #2 ischemic cardiomyopathy/ejection fraction of 40%. #3 hypokalemia. - Secondary Discharge Diagnosis Chronic Problems (Last Updated 12/16/17 @ 10:07 by Ary Granados) Osteoarthritis (Chronic) Hospital Course and Treatment Imaging Results: Clinical Impression(s) from Imaging Studies Chest X-Ray 12/14/17 23:00 IMPRESSION: There are no acute findings. Electronically Signed: Victor Hugo Minor MD at 23:29 EDT , Service support , Dr. David, cardiology. Procedures: 2-D Echocardiogram, Cardiac catheterization, EKG Summary of Care Provided: Patient seen and examined on the day of discharge and appeared to be stable to be discharged home. He denies any symptoms. His vital signs are stable. - Physical Exam General: Alert, Oriented x3, Cooperative, No apparent distress. HEENT: Atraumatic, PERRLA, EOMI. Neck: Supple, No JVD, Negative Carotid Bruits, Trachea Midline, Thyroid Normal. Lungs: Clear to auscultation, Normal air movement, No rhonchi, No wheeze, No rales. Cardiovascular: Regular rate, Regular Rhythm, Normal S1, Normal S2, PMI Normal. Abdomen: Bowel Sounds Present, Soft, Non Tender, Non-Distended, No Hepato- splenomegaly. Extremities: No clubbing, No cyanosis, No edema Skin: No rashes, No breakdown Neurological: Neuro grossly intact Vital Signs are stable. Hospital course: The patient is a 72 year old M admitted because of chest pain and he was found to have acute ST elevation [place]. He underwent emergent cardiac catheterization that revealed CAD of the proximal to mid LAD as well as posterior to the proximal first diagonal branch and he underwent successful PTCA and drug- eluting stent to proximal to mid LAD and PTCA to the ostial to proximal first diagonal branch. Patient was treated with aspirin, statins, beta blockers, SANKET inhibitors and loading dose of Brilinta. 2D echocardiography revealed ejection fraction 40%, mild aortic stenosis, other findings reviewed. On cardiac catheterization, he also was found to have probably a critical lesion in the mid RCA and cardiology is planning to have patient return in 3 weeks for PCI of the RCA. After the emergent cardiac catheterization and stenting, patient did very well and he had no more chest pain or shortness of breath. His vital signs remained stable. Patient discharged home in a stable medical condition, discharged on aspirin, Lipitor, Coreg, lisinopril and Brilinta, plan to follow- up with cardiology in 3 weeks for PCI of the RCA, recommended follow-up with PCP in 2 weeks. Discharge Activity: Return to Normal Activity Weight Bearing Status: Weight bearing as tolerated Call your doctor if you observe: Fever of 101 or Higher, Shortness of breath, Dizziness, Fainting spells, Chest pain, Increased palpitations (irregular heartbeat), Uncontrolled pain Home Medications: Medications to take at Discharge Aspirin [Aspirin, Baby] 81 mg PO DAILY@0800 #90 tab.chew 12/17/17 Atorvastatin Calcium [Lipitor] 80 mg PO QHS #90 tab 12/17/17 Carvedilol [Coreg (Beta Vinod)] 3.125 mg PO BID #90 tab 12/17/17 Lisinopril [Zestril] 5 mg PO DAILY #90 tab 12/17/17 Ticagrelor [Brilinta] 90 mg PO BID #90 tab 12/17/17 Following Prescrptions Were Given to Patient: Aspirin [Aspirin, Baby] 81 mg PO DAILY@0800 #90 tab.chew Atorvastatin Calcium [Lipitor] 80 mg PO QHS #90 tab Lisinopril [Zestril] 5 mg PO DAILY #90 tab Carvedilol [Coreg (Beta Vinod)] 3.125 mg PO BID #90 tab Ticagrelor [Brilinta] 90 mg PO BID #90 tab Primary Care Physician: Flash Monique MD [Primary Care Provider] - Please follow up with your Primary Care Physician in: 2 weeks. Please Follow Up With: Ye David MD When: please call his office. Patient Instructions: Coronary Stents, Discharge Instructions for Heart Attack Disposition: Home Minutes spent on discharge:: 32 Patient Condition:: Stable Medical Necessity - Tobacco Use Smoking Status: Former smoker Tobacco Use: Non-smoker Meaningful Use Info Meaningful Use Diagnoses (Choose all that apply): AMI - AMI Aspirin given w/in 24hrs of arrival?: Yes ASA at discharge?: Yes Statins at discharge?: Yes Sanket/ARB at discharge?: Yes Beta Vinod at discharge?: Yes Done w/ Acute [place] measure.: Yes Code Visit Inpatient E&M: 34507 Disch Hosp
== END 2017-12-17 10:22 | disposition home or self-care (01) | DRG 247 ==
LOC: ED 23:18 → ICU 23:27
PROVIDERS: Hospitalist; Admitting Provider Family Medicine; Emergency Provider Emergency Medicine; Family Provider Family Medicine; PCP Family Medicine; Visit Provider Internal Medicine Cardiovascular Disease
DX: I21.09 ST elevation (STEMI) myocardial infarction involving other coronary artery of anterior wall (principal); I47.2 Ventricular tachycardia; M17.12 Unilateral primary osteoarthritis, left knee; E87.6 Hypokalemia; E78.5 Hyperlipidemia, unspecified; I25.10 Atherosclerotic heart disease of native coronary artery without angina pectoris; Z87.891 Personal history of nicotine dependence; I25.5 Ischemic cardiomyopathy
CPT/HCPCS: 71045; 80048; 80061; 83735; 84132; 84484; 85025; 85027; 85347; 85610; 85730; 87641; 92921; 92941; 93005; 93306; 93458; 97803; 99152; 99153; 99284; J7030; Q9957; Q9967; A4216; C1725; C1769; C1874; C1887; C1894; C9606; J1327; J1940

== ENCOUNTER → 2018-01-05 11:19 | Outpatient (CLI) | payer MEDICARE, OTHER, SELFPAY ==
[2018-01-05 12:21] LABS: AST(SGOT) 11 U/L (15-37); Alanine Aminotransfer ALT/SGPT 18 U/L (16-61); Albumin, Serum 3.3 g/dL (3.2-5.0); Alkaline Phosphatase 93 U/L (45-117); Bilirubin, Direct 0.21 mg/dL (0.00-0.30); Cholesterol 96 mg/dL (200); Globulin 3.9 g/dL (2.2-4.2); High Density Lipoprotein 44 mg/dL; Protein, Total 7.2 g/dL (6.4-8.2); Triglycerides 56 mg/dL; Very Low Density Lipoprotein 11 mg/dL (5-40)
== END ==
PROVIDERS: Family Provider Family Medicine; PCP Family Medicine; Visit Provider Physician Assistant Medical
DX: I25.2 Old myocardial infarction (principal); I25.5 Ischemic cardiomyopathy; I25.10 Atherosclerotic heart disease of native coronary artery without angina pectoris; R09.89 Other specified symptoms and signs involving the circulatory and respiratory systems
CPT/HCPCS: 36415; 80061; 80076; 93880

== ENCOUNTER → 2018-01-06 10:14 | Outpatient (CLI) | payer MEDICARE, OTHER, SELFPAY ==
--- NOTE | 2018-01-06 10:19 | PCM.CR.ITP ---
General Information - General Information Admitting Diagnosis: STEMI, PTCA w/coronary stent placement - Education/Goals Barriers to Learning: Vision Impairment - macular degenerative disease both eyes. Individual Counseling: Initial Assessment: Abnormal Cholesterol Levels, High Blood Pressure, Hypertension Cardiac Rehabilitation Goals: 1. Maintain the individual as the primary focus of care. 2. To improve the patient's quality of life. 3. Identification of cardiac risk factors and provide cardiac risk factor management. 4. Enhance the psychosocial status of the patient. 5. Reconditioning enough to allow the patient to resume customary activities. 6. Control symptoms of cardiac disease Scale for measuring improvement of personal goals: Enter appropriate number in Comments. 2 = Unchanged. 3 = Slightly Better. 4 = Moderate Improvement. 5 = Met my Goal Personal Goals: Initial Assessment: Improve energy level, Participate in home exercise program, Get back to work, or to resume activities faster, Improve knowledge of cardiac disease, Improve muscle strength and endurance, Control risk factors (learn risk factor modification) Exercise - Initial Assessment - Visit Date of Eval: 01/06/18 - established ITP; patient not starting CR until Jan 19 due to another stent being scheduled. Session #:: 0 - Stages of Change Stages of Change:: Action - Exercise Prescription Mode:: Biodyne, Rower, NuStep Angina with exercise?: No Target Heart Rate:: 104-111 - Hypertension Do any of the following apply?: Yes, Medication Resting Blood Pressure:: 112/60 - Intervention Home Exercise/Activity Goal:: Sitting Time <3 hrs/day - Education Goals:: Warm-up, RPE MURTAZA Scale, S/S, Safe Exercise, Self-Monitoring - Exercise Program Goals Exercise Program Goals: Aerobic Activity >30 min Nutrition - Initial Assessment - Program Goals Nutrition Program Goals: LDL <70. Total Cholesterol <200. HDL >45. Triglycerides <150. HgbA1C <7%. BMI <25 - Visit Date of Assessment:: 01/06/18 - Stages of Change Stages of Change:: Action - Lipids Lipid Medication: follows special blood type diet due to osteoarthritis pain. - Diabetes Diabetes:: No Do you monitor your blood sugar at home?: No - Weight Management Height: 5 ft 8 in Weight:: 175 lb Body Fat %:: 26.6 - Intervention Referral to dietitian:: No Referral to Diabetic Clinic:: No Will attend diet classes:: Yes - Education Gave educational materials for:: Healthy eating Tobacco - Initial Assessment - Program Goals Tobacco Program Goals: Complete smoking cessation. Attend education classes. Improve Knowledge Test score - Stage of Change Stages of Change:: Action - Learning Barriers Learning Barriers: Vision - bilateral macular denegerative disease - Family Support Do you have family support?: Yes - Tobacco Use How long ago did you quit using tobacco products?: Greater than or equal to 6 months ago Do you use smokeless tobacco?: No - Intervention Smoking Cessation Referral:: No Individual Education/Counseling:: No Education Schedule Given:: Yes - Education Gave educational material for:: Coronary artery disease, Risk factors, Sexuality, Medical compliance, Cardiac A&P, Angina signs & symptoms Psychosocial - Initial Assess - Target Goals Target Goals: Assess presence or absence of depression. Using a valid screening tool, maximizes coping skills. 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 - Intervention PS - Interventions: Yes Attend Stress Management Classes, No Referral to Mental Health, No Referral to [facility] Case Management, No Referral to Physician, No Uses Stress Management Skills - Education Gave educational materials for:: Coping techniques, Signs & symptoms of depression, Stress management, Relaxation techniques - Patient/Program Goal Preventative Medication(s):: Aspirin, Clopidogrel, Statin/lipid - Assistive Devices Assistive Devices:: None Fall Risk Assessed:: Yes - was scheduled for left knee replacement; that has been put on hold. Patient Health Questionnaire Initial Assessment 1. Little interest or pleasure in doing things: Not at all 2. Feeling down, depressed, or hopeless: Several days 3. Trouble falling or staying asleep, or sleeping too much: Not at all 4. Feeling tired or having little energy: Several days 5. Poor appetite or overeating: Not at all 6. Feeling bad about yourself -- or that you are a failure or have let yourself or your family down: Several days 7. Trouble concentrating on things, such as reading the newspaper or watching television: Not at all 8. Moving or speaking so slowly that other people could have noticed. Or the opposite - being so fidgety or restless that you have been moving around a lot more than usual: Not at all 9. Thoughts that you would be better off , or of hurting yourself in some way: Not at all How difficult have these problems made it for you to do your work, take care of things at home, or get along with other people?: Not difficult at all Total Score: 3 MANSI-Q SV Test - Statements CAD is a disease of the arteries in the heart: False Examples of risk factors for heart disease: True Angina is chest pain or discomfort: I Don't Know The benefits of resistance training include: I Don't Know Eating more meat and dairy products: False Anti-platelet medications such as aspirin are important: True The only effective way to manage stress: False An exercise warm-up slowly increases heart rate: I Don't Know Prepared, processed foods usually have high sodium: True Depression is common after a heart attack: True The statin medications lower cholesterol: I Don't Know To control blood pressure, lower the amount of sodium: I Don't Know If someone gets chest discomfort during walking: False Transfats are partially hydrogenated vegetable oils: True Sleep apnea that is not treated increases the risk: False To control cholesterol, one should become a vegetarian: False Someone knows if he/she is exercising at the right level: True Diabetes cannot be prevented with exercise & health eating: False Stress is a large risk for heart attack: True A diet that can help lower blood pressure is rich in: True - Total Score Total Correct Responses: 15 Self-Efficacy Initial Assessment We would like to know how confident you are in doing certain activities. Please select your confidence level for:: Select your confidence level for the following using the scale 1-10 where 1 is not at all confident and 10 is totally confident. Your score is the average of all 6 responses. Fatigue: How confident are you that you can keep the fatigue caused by your disease from interfering with the things you want to do? Select Number: 9 Physical Discomfort or Pain: How confident are you that you can keep the physical discomfort or pain of your disease from interfering with the things you want to do? Select Number: 9 Emotional Distress: How confident are you that you can keep the emotional distress caused by your disease from interfering with the things you want to do? Select Number: 9 Other Symptoms or Health Problems: How confident are you that you can keep other symptoms or health problems from interfering with the things you want to do? Select Number: 9 Different Tasks and Activities: How confident are you that you can do the different tasks and activities needed to manage your health condition so as to reduce your need to see a doctor? Select Number: 9 Medication: How confident are you that you can do things other than just taking medication to reduce how much your illness affects your everyday life? Select Number: 9 Total Score:: 9 Nutrition Survey - Nutrition Survey Instructions Scoring Instructions: Scoring is as follows: Yes = 1 points. No = 0 point. Patient score that is >/=12 is considered to be at potential nutritional risk and could benefit from a referral to a registered dietitian. - Nutrition Survey Initial Have you lost >10 lbs over the past 2 months without trying?: No Are you following a special diet at home for diabetes, low fat, or low salt?: No Are you interested in meeting with a dietitian for help understanding your diet?: No Do you eat less than 3 meals a day?: No Do you eat fatty meats (garcia, sausage, ribs, etc), fried foods, desserts, large amounts of salad dressings, margarine, butter, or cheese most days?: No Do you have food allergies? [Enter types in comment field]: Yes - Avoid Type O depleted foods Do you eat in restaurants more than 3 times a week?: No Do you season food with salt, seasoning salt, or garlic salt?: No Do you used canned, boxed, frozen meals, or soups, seasoning packets?: No Total Score:: 1
--- NOTE | 2018-01-06 10:20 | PCM.CR.HP2 ---
CR - History & Physical - General Arrival date:: 01/06/18 Arrival time:: 10:20 Date of Referral:: 12/16/17 Date of CR Evaluation:: 01/06/18 Referring Physician: Ye David Primary Diagnosis: PTCA 12/15/2017, additional stent 01/07/2018 - History of Present Cardiac Event Onset Date: Enter Onset Date of cardiac illnesses in Comment field below Acute Myocardial Infarction within 12 months:: Yes - STEMI PTCA or coronary stenting:: Yes - 12/15/2017 & 01/07/2018 Type of Symptoms:: Mid sternal chest pain very tight pressure Interventions with present event:: ER, emergent heart cath w/ coronary stent Were there any complications?: none - Medications Home Medications: Ambulatory Orders Medication Instructions Recorded Aspirin [Aspirin, Baby] 81 mg PO DAILY@0800 #90 tab.chew 12/17/17 Atorvastatin Calcium [Lipitor] 80 mg PO QHS #90 tab 12/17/17 Carvedilol [Coreg (Beta Vinod)] 3.125 mg PO BID #90 tab 12/17/17 Lisinopril [Zestril] 5 mg PO DAILY #90 tab 12/17/17 Ticagrelor [Brilinta] 90 mg PO BID #90 tab 12/17/17 clopidogrel 75 mg tablet 75 mg PO DAILY #34 tab 01/01/18 - Allergies Allergies/Adverse Reactions: Allergies oseltamivir [From Tamiflu] Allergy (Verified 12/14/17 23:19) Anaphylaxis - Sleep Disorder Evaluation Hx of Sleep Apnea: Yes Do you snore loudly (louder than talking or can be heard through closed doors)?: Yes - wore CPAP at HS years ago. Since stent done has lessened. Do you often feel tired/ fatigued/ sleepy during daytime?: Yes - sometimes, may be related to medications. Feels better before taking meds. Has anyone observed you stop breathing during sleep?: No History of Hypertension (for STOP score): Yes STOP Results: Positive Advanced Directives - Advanced Directives Power of Buffer Inflated Pad: Yes Living Will: Yes Advance Directives Information Provided: No Advance Directives on File: Yes - patient feels pretty sure they are on file DNR Order?:: No - MOLST See MOLST form: No Past Medical History - Past Medical Illness Medical History: Past Medical History (Last Updated 01/02/18 @ 15:38 by NEAL Chowdhury) Essential hypertension (Acute) I10 Left carotid bruit (Acute) R09.89 Ischemic cardiomyopathy (Acute) I25.5 EF 40% per echo 12/15/2017 @ [facility] Arteriosclerosis of coronary artery in patient with history of myocardial infarction (Acute) Onset Date: 12/15/17 I25.10, I25.2 PTCA and SONIA of proximal to mid LAD using 3.0 X 24 mm Synergy stent; PCI to ostial and proximal 1st diagonal per Dr. David, [facility] STEMI (ST elevation myocardial infarction) (Acute) Onset Date: 12/15/17 I21.3 Anterior STEMI Osteoarthritis (Chronic) M19.90 - Past Surgical History Surgical History: Past Surgical History (Last Updated 12/16/17 @ 10:06 by Ary Granados) Stented coronary artery (Acute) Onset Date: 12/15/17 Z95.5 PTCA and SONIA of proximal to mid LAD using 3.0 X 24 mm Synergy stent; PCI to ostial and proximal 1st diagonal per Dr. David, [facility] Surgical History: - - Ectomy, left knee arthroscopic surgery. Social History - Smoking History Smoking Status: Former smoker Years Smokin Packs Smoked per Day: 1 Hx Smoking Cessation Date: 21 years ago Hx Tobacco Use: Yes Hx Smoking Exposure: No - Alcohol Use Alcohol Usage: Yes - very little; maybe one drink a month if even that. - Substance Abuse Hx Substance Use: No - Occupation Occupation (List type of work in comments):: Retired - Hobbies, Recreation, Social Activities Hobbies: Sports - watching [employer], Other - [email or web address] boating, Recreational Activities: I am able to engage in most, but not all activities Social Environment - Status Marital Status: - Current Living Arrangements Living Environment:: Spouse - Children How many children do you have?: 2 Do any of your children live nearby?: Yes - one close, son in [place] - Safety Do you feel safe in your surroundings?: Yes - Assistance Do you need any assistance at home?: no Review of Systems - Review of Systems Hints: Right click = Denies ([place]ash). Left click = Reports ([place]) Review of Present Symptoms: Reports: Shortness of Breath with Exertion - Noticed if climbing a couple flights of stairs notices some shortness of breath., Fatigue, Appetite - Normal, Appetite - Special Diet - Blood type diet., Sleep - Normal, Sexual Changes - has had E.D. for number of years, year ago has since remarried. Has talked with [facility] and Dr. David about possible use of meds after stent done.. Denies: Shortness of Breath at Rest, Dizziness/Lightheadedness, Heart Arrhythmia/Irregularities - Pain Is Patient Pain Free?: No Pain Location: other - left knee; Pain Level: 5/10 - hurts pretty bad at times, can go from 1 or 2 to level of 6-7 easy. 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 - Diabetes Nutrition Referral for Diabetes: No - Obesity Height: 5 ft 8 in Weight:: 175 lb Weight in Pounds: 175.0 lbs Weight Source: Standing Scale Body Mass Index (BMI): 26.6 Nutritional Referral for Obesity: No - Physical Inactivity Physical Inactivity: None - Risk Stratification Risk Guidelines: Lowest Risk: Risk Factor for Smoking, Risk Factor for Dyslipidemia, Risk Factor for Diabetes, Risk Factor for Hypertension, Risk Factor for Sedentary Lifestyle, Risk Factor for Depression, Moderate Risk: Risk Factor for Obesity - For Smoking Smoking Risk Guidelines: Smoking Low Risk: None or quit greater than 6 months ago. Smoking Moderate Risk: Smoker or quit 6 months or less ago. Smoking High Risk: Smoker - For Dyslipidemia Dyslipidemia Risk Guidelines: Low Risk: Moderate Risk: High Risk: 15-25% fat 25.1-29% fat >/= 30% fat. <7% sat fat 7-9% sat fat >9% sat fat. <150 mg chol 150-299 mg chol >/= 300 mg chol. LDL <100 LDL 100-129 LDL >/= 130. Chol/HDL ratio <5.0 Chol/HDL ratio 5.0-6.0 Chol/HDL ratio >6.0. Triglycerides <100 Triglycerides 100-149 Triglycerides >/= 150 - For Diabetes Mellitus Diabetes Risk Guidelines: Diabetes Low Risk: HgA1c <6.5% and/or FBG <120. Diabetes Moderate Risk: HgA1c 6.6-7.9% and/or FBG 120-180. Diabetes High Risk: HgA1c >/= 8% and/or FBG >180 - For Obesity/Overweight Obesity/Overweight Risk Guidelines: Obesity Low Risk: BMI <25.0. Obesity Moderate Risk: BMI 25-29.9. Obesity High Risk: BMI >/= 30.0 - For Hypertension Hypertension Risk Guidelines: Hypertension Low Risk: Systolic <120 and Diastolic <80. Hypertension Moderate Risk: Systolic 120-139 and Diastolic 80-89. Hypertension High Risk: Systolic >/= 140 and Diastolic >/= 90 - For Sedentary Lifestyle Sedentary Lifestyle Risk Guidelines: Sedentary Lifestyle Low Risk: >/= 1,500 kcal/week. Sedentary Lifestyle Moderate Risk: 700-1,499 kcal/week. Sedentary Lifestyle High Risk: < 700 kcal/week - For Depression Depression Risk Guidelines: Depression Low Risk: Not clinically depressed. Depression Moderate Risk: Mildly depressed. Depression High Risk: Clinically depressed Motivation - Motivation to Participate On a scale of 1 to 10, how prepared are you to commit to attending program?: 10 - willing ablke to try it. What do you see as barriers to successfully being able to complete the program?: left knee problems What do you see as the benefits of succesfully completing the program? In other words, what do you hope to get out of participating in the program?: more stamina Are there issues you are dealing with that will interfere with completing the program?: left knee needs to be replaced. Was scheduled for surgery but had STEMI. Do you have a spouse or signficant other, family or friends who will help support you to complete the program?: yes
--- NOTE | 2018-01-06 10:24 | CR.HP_ITS ---
CR - History & Physical - General Arrival date:: 01/06/18 Arrival time:: 10:20 Date of Referral:: 12/16/17 Date of CR Evaluation:: 01/06/18 Referring Physician: Ye David Primary Diagnosis: PTCA 12/15/2017, additional stent 01/07/2018 - History of Present Cardiac Event Onset Date: Enter Onset Date of cardiac illnesses in Comment field below Acute Myocardial Infarction within 12 months:: Yes - STEMI PTCA or coronary stenting:: Yes - 12/15/2017 & 01/07/2018 Type of Symptoms:: Mid sternal chest pain very tight pressure Interventions with present event:: ER, emergent heart cath w/ coronary stent Were there any complications?: none - Medications Home Medications: Ambulatory Orders Medication Instructions Recorded Aspirin [Aspirin, Baby] 81 mg PO DAILY@0800 #90 tab.chew 12/17/17 Atorvastatin Calcium [Lipitor] 80 mg PO QHS #90 tab 12/17/17 Carvedilol [Coreg (Beta Vinod)] 3.125 mg PO BID #90 tab 12/17/17 Lisinopril [Zestril] 5 mg PO DAILY #90 tab 12/17/17 Ticagrelor [Brilinta] 90 mg PO BID #90 tab 12/17/17 clopidogrel 75 mg tablet 75 mg PO DAILY #34 tab 01/01/18 - Allergies Allergies/Adverse Reactions: Allergies oseltamivir [From Tamiflu] Allergy (Verified 12/14/17 23:19) Anaphylaxis - Sleep Disorder Evaluation Hx of Sleep Apnea: Yes Do you snore loudly (louder than talking or can be heard through closed doors)? : Yes - wore CPAP at HS years ago. Since stent done has lessened. Do you often feel tired/ fatigued/ sleepy during daytime?: Yes - sometimes, may be related to medications. Feels better before taking meds. 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 Living Will: Yes Advance Directives Information Provided: No Advance Directives on File: Yes - patient feels pretty sure they are on file DNR Order?:: No - MOLST See MOLST form: No Past Medical History - Past Medical Illness Medical History: Past Medical History (Last Updated 01/02/18 @ 15:38 by NEAL Chowdhury) Essential hypertension (Acute) I10 Left carotid bruit (Acute) R09.89 Ischemic cardiomyopathy (Acute) I25.5 EF 40% per echo 12/15/2017 @ [facility] Arteriosclerosis of coronary artery in patient with history of myocardial infarction (Acute) Onset Date: 12/15/17 I25.10, I25.2 PTCA and SONIA of proximal to mid LAD using 3.0 X 24 mm Synergy stent; PCI to ostial and proximal 1st diagonal per Dr. David, [facility] STEMI (ST elevation myocardial infarction) (Acute) Onset Date: 12/15/17 I21.3 Anterior STEMI Osteoarthritis (Chronic) M19.90 - Past Surgical History Surgical History: Past Surgical History (Last Updated 12/16/17 @ 10:06 by Ary Granados) Stented coronary artery (Acute) Onset Date: 12/15/17 Z95.5 PTCA and SONIA of proximal to mid LAD using 3.0 X 24 mm Synergy stent; PCI to ostial and proximal 1st diagonal per Dr. David, [facility] Surgical History: - - Ectomy, left knee arthroscopic surgery. Social History - Smoking History Smoking Status: Former smoker Years Smokin Packs Smoked per Day: 1 Hx Smoking Cessation Date: 21 years ago Hx Tobacco Use: Yes Hx Smoking Exposure: No - Alcohol Use Alcohol Usage: Yes - very little; maybe one drink a month if even that. - Substance Abuse Hx Substance Use: No - Occupation Occupation (List type of work in comments):: Retired - Hobbies, Recreation, Social Activities Hobbies: Sports - watching [employer], Other - mygola boating, Recreational Activities: I am able to engage in most, but not all activities Social Environment - Status Marital Status: - Current Living Arrangements Living Environment:: Spouse - Children How many children do you have?: 2 Do any of your children live nearby?: Yes - one close, son in [place] - Safety Do you feel safe in your surroundings?: Yes - Assistance Do you need any assistance at home?: no Review of Systems - Review of Systems Hints: Right click = Denies ([place]ash). Left click = Reports ([place]) Review of Present Symptoms: Reports: Shortness of Breath with Exertion - Noticed if climbing a couple flights of stairs notices some shortness of breath. , Fatigue, Appetite - Normal, Appetite - Special Diet - Blood type diet., Sleep - Normal, Sexual Changes - has had E.D. for number of years, year ago has since remarried. Has talked with Chayito and Dr. David about possible use of meds after stent done.. Denies: Shortness of Breath at Rest, Dizziness/ Lightheadedness, Heart Arrhythmia/Irregularities - Pain Is Patient Pain Free?: No Pain Location: other - left knee; Pain Level: 5/10 - hurts pretty bad at times, can go from 1 or 2 to level of 6- 7 easy. 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 - Diabetes Nutrition Referral for Diabetes: No - Obesity Height: 5 ft 8 in Weight:: 175 lb Weight in Pounds: 175.0 lbs Weight Source: Standing Scale Body Mass Index (BMI): 26.6 Nutritional Referral for Obesity: No - Physical Inactivity Physical Inactivity: None - Risk Stratification Risk Guidelines: Lowest Risk: Risk Factor for Smoking, Risk Factor for Dyslipidemia, Risk Factor for Diabetes, Risk Factor for Hypertension, Risk Factor for Sedentary Lifestyle, Risk Factor for Depression, Moderate Risk: Risk Factor for Obesity - For Smoking Smoking Risk Guidelines: Smoking Low Risk: None or quit greater than 6 months ago. Smoking Moderate Risk: Smoker or quit 6 months or less ago. Smoking High Risk: Smoker - For Dyslipidemia Dyslipidemia Risk Guidelines: Low Risk: Moderate Risk: High Risk: 15-25% fat 25.1-29% fat >/= 30% fat. <7% sat fat 7-9% sat fat >9% sat fat. <150 mg chol 150-299 mg chol >/= 300 mg chol. LDL <100 LDL 100-129 LDL >/= 130. Chol/HDL ratio <5.0 Chol/HDL ratio 5.0-6.0 Chol/HDL ratio >6.0. Triglycerides <100 Triglycerides 100-149 Triglycerides >/= 150 - For Diabetes Mellitus Diabetes Risk Guidelines: Diabetes Low Risk: HgA1c <6.5% and/or FBG <120. Diabetes Moderate Risk: HgA1c 6.6-7.9% and/or FBG 120-180. Diabetes High Risk: HgA1c >/= 8% and/or FBG >180 - For Obesity/Overweight Obesity/Overweight Risk Guidelines: Obesity Low Risk: BMI <25.0. Obesity Moderate Risk: BMI 25-29.9. Obesity High Risk: BMI >/= 30.0 - For Hypertension Hypertension Risk Guidelines: Hypertension Low Risk: Systolic <120 and Diastolic <80. Hypertension Moderate Risk: Systolic 120-139 and Diastolic 80-89. Hypertension High Risk: Systolic >/= 140 and Diastolic >/= 90 - For Sedentary Lifestyle Sedentary Lifestyle Risk Guidelines: Sedentary Lifestyle Low Risk: >/= 1 ,500 kcal/week. Sedentary Lifestyle Moderate Risk: 700-1,499 kcal/week. Sedentary Lifestyle High Risk: < 700 kcal/week - For Depression Depression Risk Guidelines: Depression Low Risk: Not clinically depressed. Depression Moderate Risk: Mildly depressed. Depression High Risk: Clinically depressed Motivation - Motivation to Participate On a scale of 1 to 10, how prepared are you to commit to attending program?: 10 - willing ablke to try it. What do you see as barriers to successfully being able to complete the program? : left knee problems What do you see as the benefits of succesfully completing the program? In other words, what do you hope to get out of participating in the program?: more stamina Are there issues you are dealing with that will interfere with completing the program?: left knee needs to be replaced. Was scheduled for surgery but had STEMI. Do you have a spouse or signficant other, family or friends who will help support you to complete the program?: yes
[2018-01-06 10:42] VITALS: BP 112/60; PULSE 60; RESP 16; TEMP 37.1; O2SAT 95; BMI 26.6
[2018-01-06 12:17] VITALS: BP 112/60
== END ==
PROVIDERS: Family Provider Family Medicine; PCP Family Medicine; Visit Provider Internal Medicine Cardiovascular Disease
DX: Z95.5 Presence of coronary angioplasty implant and graft (principal)

== ENCOUNTER 2018-01-07 10:42 | Observation (INO) | payer MEDICARE, OTHER, SELFPAY ==
[2018-01-06 07:57] VITALS: BMI 27.5
[2018-01-07] VITALS (27 sets, daily range): BP systolic 106–181; BP diastolic 38–84; PULSE 46–68; RESP 10–22; TEMP 36.7; O2SAT 94–99; BMI 27.0
[2018-01-07 11:00] LABS: ACT Activated Clotting Time 202 sec (74-137)
[2018-01-07] MEDS: 0.9% Normal Saline 1,000 ML 150 ML IV (12:00)
[2018-01-07 12:46] LABS: ACT Activated Clotting Time 147 sec (74-137)
--- NOTE | 2018-01-07 12:46 | CRPHASE1 ---
Patient Data/Charges Former Patient:: Phase II Reason Not Completed:: Eliot was previously seen following PCI on 12/14/2017; he has been evaluated and will be starting outpatient CR following this procedure. Phase II Referral:: [facility] Start Phase II:: 01/19/2018
--- NOTE | 2018-01-07 12:48 | CRPHASE1_ITS ---
Patient Data/Charges Former Patient:: Phase II Reason Not Completed:: Eliot was previously seen following PCI on 12/14/2017 ; he has been evaluated and will be starting outpatient CR following this procedure. Phase II Referral:: [facility] Start Phase II:: 01/19/2018
--- NOTE | 2018-01-07 12:48 | CRPH1.INSTRU ---
General Education CAD and cardiac anatomy and function:: Not instructed Explanation of diagnoses and procedures:: Not instructed Sign/Symptoms of RI:: Not instructed Antiplatelet therapy: Not instructed Proper use of NTG-SL: Not instructed Emergency procedures and activation of EMS: Not instructed Compliance of all prescribed medications: Not instructed - Patient was previously instructed following his PCI intervention 12/14/2017
--- NOTE | 2018-01-07 14:18 | NURSING ---
1418 - sheath dc, pressure initiated 1423 - HR 26, BP 73/44, pt c/o feeling hot and not right - ntg dc - atropine 0.5mg x2 - 500cc fluid bolus initiated 1426 - HR 73, BP 96/56, SR w/freq PVC 1430 - HR 66, BP 93/60, SR w/rare PVC pt w/out c/o at this time. - pressure cont at groin site - Dr. David notified above 1435 - HR 69, BP 101/59 1440 - HR 64, BP 105/55 1445 - HR 61, BP 105/62 SR w/occ PVC 1448- hemostasis, site w/out hematoma or change in pre admission bruising. - Dr. David present in pt room. orders recd
[2018-01-07] MEDS: Atropine Sulfate 1 MG/10 ML Syringe 0.5 MG IV ×2 (14:23→14:24)
[2018-01-07] MEDS: 0.9% Normal Saline 500 ML IV.SOLN. IV (14:23)
[2018-01-07] MEDS: Acetaminophen 325 MG Tablet 650 MG PO (19:03)
[2018-01-07] MEDS: Atorvastatin Calcium 80 MG Tablet PO (21:10)
[2018-01-07] MEDS: TICAGRELOR 90 MG TABLET PO (21:10)
[2018-01-07] MEDS: Carvedilol 3.125 MG TABLET PO (21:10)
[2018-01-08] VITALS (14 sets, daily range): BP systolic 118–158; BP diastolic 45–87; PULSE 48–66; RESP 12–19; TEMP 36.7–37.1; O2SAT 94–98
[2018-01-08] MEDS: 0.9% NaCl Peripheral Flush Adult/Peds IV (05:02)
[2018-01-08 05:10] LABS: Hematocrit 41.2 % (40-54); Hemoglobin 13.8 g/dl (13.0-16.5); Mean Corp Hgb Conc 33.5 g/gl (32-36); Mean Corpuscular Hgb 30.7 pg (27.0-32.0); Mean Corpuscular Volume 91.6 fL (80-94); Mean Platelet Vol. 9.9 fl (6.2-12.0); Platelet Count 262 K/mm3 (150-450); RBC Distribution Width CV 12.9 % (11.6-14.6); RBC Distribution Width SD 42.6 fl (35.1-43.9); White Blood Count 7.7 K/mm3 (4.4-11.0)
[2018-01-08 05:21] LABS: Scan Indicated on CBC? Y/N NO
[2018-01-08 05:25] LABS: ALB/GLOB Ratio 0.8 RATIO (0.9-2.4); AST(SGOT) 15 U/L (15-37); Alanine Aminotransfer ALT/SGPT 17 U/L (16-61); Albumin, Serum 2.8 g/dL (3.2-5.0); Alkaline Phosphatase 73 U/L (45-117); Anion Gap 8 (5-15); BUN 11 mg/dL (7-18); BUN/Creat Ratio 12.8 RATIO (10-20); Calcium,Total 8.2 mg/dL (8.5-10.1); Chloride 108 mmol/L (98-107); Cholesterol 91 mg/dL (200); Creatinine, Serum 0.86 mg/dL (0.70-1.30); EST Glomerular Filtration Rate 93 mL/min (>60); Est Glom Filt Rate - Afr Amer 113 mL/min (>60); Estimated Creatinine Clearance 76.22 ml/min; Globulin 3.4 g/dL (2.2-4.2); Glucose 100 mg/dL (74-106); High Density Lipoprotein 38 mg/dL; Protein, Total 6.2 g/dL (6.4-8.2); Sodium Level 142 mmol/L (136-145); Triglycerides 49 mg/dL; Very Low Density Lipoprotein 10 mg/dL (5-40)
--- NOTE | 2018-01-08 08:40 | DCINST_ITS ---
Discharge Diet: Low fat/ Low Cholesterol May shower in (days): 1 May resume sexual activity in: 1 week - if no groin problems occur. Lifting Restrictions: 10 pounds and also avoid any pushing or pulling for 3 days after your test. Additional Activity Instructions:: You must have someone drive you home. Do not drive until instructed by your doctor. You must have someone stay with you all night after your test. Rest in bed or on the couch until the next morning. Limit the number of times you go up and down stairs the day of your test. Call your doctor if your incision/area has: Continuous Slow Oozing, Sudden Increased Bleeding, Increased Pain/ Swelling, Increased Redness, Foul Smelling Discharge Call your doctor if you observe: Fever of 101 or Higher, Shortness of breath, Chest pain Remove Dressing in (days):: 1 Cleanse incision/area with: Soap & Water Additional Dressing/Incision Instructions:: Keep the dressing (bandage) on until the next morning. You may then shower, but do not take a tub bath for 5 days after your test. It is normal to have some tenderness and discomfort at the puncture site. Sometimes bruising also occurs. However, if pain, numbness, or coldness occurs below the puncture site (in your leg, toes, arms or fingers) call your doctor at once. You may have a small, marble sized knot at the puncture site. This is normal. Do not rub it. It will go away in 4-6 weeks. Bleeding can occur from the area where the puncture was done. Blood may spurt or drip from the site. If blood spurts, apply pressure right away to stop bleeding and call 911. Although rare, bleeding into the tissue (hematoma) can also occur. If this happens, a large, firm area goose egg under the skin will appear. If any of these occur, lie down as flat as you can and have someone apply firm pressure to the cath site with a gauze pad or a clean washcloth for 10-15 minutes. Call 911 or go to the Emergency Department. Allergies/Adverse Reactions: Allergies oseltamivir [From Tamiflu] Allergy (Verified 12/14/17 23:19) Anaphylaxis Medications to take at Discharge Aspirin [Aspirin, Baby] 81 mg PO DAILY@0800 #90 tab.chew 12/17/17 Atorvastatin Calcium [Lipitor] 80 mg PO QHS #90 tab 12/17/17 Carvedilol [Coreg (Beta Vinod)] 3.125 mg PO BID #90 tab 12/17/17 Lisinopril [Zestril] 5 mg PO DAILY #90 tab 12/17/17 Ticagrelor [Brilinta] 90 mg PO BID #90 tab 12/17/17 clopidogrel 75 mg tablet 75 mg PO DAILY #34 tab 01/01/18 Primary Care Physician: Flash Monique MD [Primary Care Provider] - Test Results: Test results from this visit will be discussed in further detail at your follow- up appointment, if applicable. Please Follow Up With: Chayito Holden PA When: 01/21 at 1000 Cardiac Rehabilitation Info Cardiac Rehabilitation Program Information: Cardiac Rehabilitation is important for patients like you who are recovering from a heart problem. Cardiac rehabilitation programs are recognized as integral to the continued care of the patient with coronary heart disease. The cardiac rehabilitation program is designed to optimize a patient's physical, psychological, and social functioning. Health assurance services manager health care work in cardiac rehabilitation programs and assist you with getting the treatments you need to get stronger and healthier - like exercise, healthy eating habits, and medications. Cardiac rehabilitation has been show to help people with heart problems live longer and have better life enjoyment than people who do not go to cardiac rehabilitation. Please contact the Cardiac Rehabilitation Program at [facility] at in two weeks if you have not heard from them.
--- NOTE | 2018-01-08 09:37 | CASEMGMT ---
RN CM Note. Intro role of CM to patient in room. Pt states he is independent. Was on Brillinta at home and physician told him he would take Brillinta initially, but then change to Plavix. He is able to f/u with physicians. Pt declined savings card. Brooklynn DOWDN RN ACM
[2018-01-08] MEDS: Aspirin 81 MG TAB.CHEW PO (09:48)
[2018-01-08] MEDS: Lisinopril 5 MG Tablet PO (09:48)
[2018-01-08] MEDS: Carvedilol 3.125 MG TABLET PO (09:48)
[2018-01-08] MEDS: TICAGRELOR 90 MG TABLET PO (09:48)
--- NOTE | 2018-01-08 10:22 | PCM.PN.CARD ---
Subjectve: Patient doing very well overnight, no 24 hour events. Right groin is clean/dry/intact, no thrills, bruits or hematoma. EKG shows normal sinus rhythm, no acute changes. Hemoglobin and creatinine are within nominal limits. Telemetry negative. Objective: Vital Signs Temp Pulse Resp BP Pulse Ox 98.5 F 58 L 17 158/87 H 96 01/08/18 04:00 01/08/18 07:24 01/08/18 07:24 01/08/18 07:24 01/08/18 07:24 Oxygen Delivery Method Room Air Weight: 167 lb 8.821 oz Body Mass Index (BMI) 27.0 Intake and Output for Last 24 Hours 01/06/18 01/07/18 01/08/18 23:59 23:59 23:59 Intake Total 1740 / 1740 480 / 480 Output Total 500 / 500 1250 / 1250 Balance 1240 / 1240 -770 / -770 General: Awake, Alert, Oriented x 3 HEENT: PERRL, EOMI, Sclera Non Icteric Neck: Supple, Good ROM, No Lymph Node Enlargement Lungs: Clear to auscultation Cardiovascular: Regular Rhythm, Normal S1, Normal S2, No Murmurs, No Rubs, No Gallops Vascular: No Carotid Bruits, Normal Femoral Pulses, Normal Radial Pulses, Normal Dorsalis Pedal Pulse, Normal Posterior Tibial Pulses Abdomen: Bowel Sounds Present, Soft, Non Tender, No HSM, No Organomegaly Extremities: No Cyanosis, No Clubbing, No edema Neurological: No Focal Motor or Sensory Deficit 01/08/18 05:04: WBC 7.7, RBC 4.50 L, Hgb 13.8, Hct 41.2, MCV 91.6, MCH 30.7, MCHC 33.5, RDW 12.9, RDW Differential 42.6, Plt Count 262, MPV 9.9 01/08/18 05:04: Sodium 142, Potassium 4.0, Chloride 108 H, Carbon Dioxide 26.0, Anion Gap 8, BUN 11, Creatinine 0.86, Est GFR (MDRD) Af Amer 113, Est GFR (MDRD) Non-Af 93, BUN/Creatinine Ratio 12.8, Glucose 100, Calcium 8.2 L, Total Bilirubin 0.50, Triglycerides 49, Cholesterol 91, LDL Cholesterol 43, VLDL Cholesterol 10, HDL Cholesterol 38 L Rhythm: EKG: ECHO: Stress Test: Cardiac Cath: PCI: CT Surgery: Holter monitor: EPS: PPM: CXR: Chest CT Scan: Medical Necessity - Tobacco Use Smoking Status: Former smoker Assessment/Plan 1. Coronary artery disease: Status post elective angioplasty and stenting of his right coronary artery receiving a 4.0X 38 Promus stent with an excellent result. Patient status post acute anterior wall microinfarction with complex angioplasty and drug-eluting stenting to his LAD several weeks ago. He also had balloon angioplasty of the ostium of the diagonal branch. Patient will continue on aspirin, Brilinta, antihypertensive agents, and follow-up in our office in 2 weeks time for a groin check. He will then be enrolled in cardiac rehab which is already scheduled. 2. Hyperlipidemia: Continue Lipitor therapy. Repeat lipid profile at the conclusion of cardiac rehab. 3. Discharge patient home. Code Visit Inpatient E&M: 77604 Subs Hosp L2
== END 2018-01-08 10:56 | disposition home or self-care (01) ==
LOC: ICU 11:08 → CLSP 11:08
PROVIDERS: Admitting Provider Internal Medicine Cardiovascular Disease; Family Provider Family Medicine; PCP Family Medicine; Visit Provider Internal Medicine Cardiovascular Disease
DX: I25.110 Atherosclerotic heart disease of native coronary artery with unstable angina pectoris (principal); R09.89 Other specified symptoms and signs involving the circulatory and respiratory systems; I11.0 Hypertensive heart disease with heart failure; I50.20 Unspecified systolic (congestive) heart failure; M19.90 Unspecified osteoarthritis, unspecified site; E78.5 Hyperlipidemia, unspecified; Z87.891 Personal history of nicotine dependence; Z95.5 Presence of coronary angioplasty implant and graft; Z79.899 Other long term (current) drug therapy; Z79.02 Long term (current) use of antithrombotics/antiplatelets; Z79.82 Long term (current) use of aspirin
CPT/HCPCS: 80053; 80061; 85027; 85347; 92928; 93005; 96361; 96365; 96366; 96375; 99218; J7030; J7040; A4216; C1725; C1769; C1874; C1887; C9600; G0378; G0379; Q9967

== ENCOUNTER 2018-02-06 09:15 | Outpatient (RCR) | payer MEDICARE, OTHER, SELFPAY | END 2018-02-08 23:59 | LOC: CR 09:15 | PROVIDERS: Family Provider Family Medicine; PCP Family Medicine; Visit Provider Internal Medicine Cardiovascular Disease | DX: I21.3 ST elevation (STEMI) myocardial infarction of unspecified site (principal); I25.10 Atherosclerotic heart disease of native coronary artery without angina pectoris; I25.5 Ischemic cardiomyopathy; I25.2 Old myocardial infarction; Z95.5 Presence of coronary angioplasty implant and graft | CPT/HCPCS: 93798 ==

== ENCOUNTER 2018-03-11 09:15 | Outpatient (RCR) | payer MEDICARE, OTHER, SELFPAY ==
--- NOTE | 2018-02-18 08:57 | CR.ITP_ITS ---
General Information - General Information Admitting Diagnosis: PCI w/ coronary artery stent placement - Education/Goals Cardiac Rehabilitation Goals: 1. Maintain the individual as the primary focus of care. 2. To improve the patient's quality of life. 3. Identification of cardiac risk factors and provide cardiac risk factor management. 4. Enhance the psychosocial status of the patient. 5. Reconditioning enough to allow the patient to resume customary activities. 6. Control symptoms of cardiac disease Scale for measuring improvement of personal goals: Enter appropriate number in Comments. 2 = Unchanged. 3 = Slightly Better. 4 = Moderate Improvement. 5 = Met my Goal Exercise - 30-day Assessment - Visit Date of Eval: 02/18/18 Session #:: 11 - Stages of Change Stages of Change:: Action - Exercise Prescription Mode:: NuStep Frequency (x/week): 3 Duration:: 30 METs - Progression: 0.5-1 MET as tolerated: 4 Target Heart Rate:: 104-111 Max HR 96 - Hypertension Resting Blood Pressure:: 124/52 Peak Exercise Blood Pressure:: 154/70 - Intervention Home Exercise/Activity Goal:: Sitting Time <3 hrs/day - Education Goals:: Warm-up, RPE MURTAZA Scale, S/S, Safe Exercise, Self-Monitoring - Exercise Program Goals Exercise Program Goals: Aerobic Activity >30 min, B/P <130/80 Nutrition - Initial Assessment - Program Goals Nutrition Program Goals: LDL <70. Total Cholesterol <200. HDL >45. Triglycerides <150. HgbA1C <7%. BMI <25 - Diabetes Do you monitor your blood sugar at home?: No Nutrition - 30-Day Assessment - Program Goals Nutrition Program Goals: LDL <70. Total Cholesterol <200. HDL >45. Triglycerides <150. HgbA1C <7%. BMI <25 - Visit Date of Eval: 02/18/18 - Stages of Change Stages of Change:: Action - Lipids Has the patient seen the dietitian?: No - Diabetes Diabetes:: No - Weight Management Weight:: 82.327 kg - Intervention Referral to dietitian:: No Referral to Diabetic Clinic:: No Will attend diet classes:: Yes - Education Attended class for:: Signs & symptoms of hypoglycemia, Signs & symptoms of hyperglycemia, Relate diabetes to coronary artery disease, Healthy eating Tobacco - Initial Assessment - Program Goals Tobacco Program Goals: Complete smoking cessation. Attend education classes. Improve Knowledge Test score - Learning Barriers Learning Barriers: Vision - bilateral macular denegerative disease Tobacco - 30-Day Assessment - Program Goals Tobacco Program Goals: Complete smoking cessation. Attend education classes. Improve Knowledge Test score - Stage of Change Stages of Change:: Action - Learning Barriers Learning Barriers: Participates in education - Family Support Do you have family support?: Yes - Tobacco Use Tobacco Use: Non-smoker Do you use smokeless tobacco?: No - Intervention Smoking Cessation Referral:: No Individual Education/Counseling:: No Education Schedule Given:: Yes - Education Attended class for:: Tobacco triggers, Coronary artery disease, Risk factors, Sexuality, Medical compliance, Cardiac A&P, Angina signs & symptoms Psychosocial - Initial Assess - Target Goals Target Goals: Assess presence or absence of depression. Using a valid screening tool, maximizes coping skills. Positive support system - Psychosocial Test Tool Used:: HANDS Depression Questionnaire - Assistive Devices Fall Risk Assessed:: Yes - was scheduled for left knee replacement; that has been put on hold. Psychosocial - 30-Day Assess - Target Goals Target Goals: Assess presence or absence of depression. Using a valid screening tool, maximizes coping skills. Positive support system - Stages of Change Stages of Change:: Action - Psychosocial Test Tool Used:: HANDS Depression Questionnaire - Intervention PS - Interventions: Yes Attend Stress Management Classes, Yes Uses Stress Management Skills, No Referral to Mental Health, No Referral to [facility] Case Management, No Referral to Physician - Education Attended classes for:: Coping techniques, Signs & symptoms of depression, Stress management, Relaxation techniques - Assistive Devices Assistive Devices:: None Fall Risk Assessed:: Yes Patient Health Questionnaire 30-Day Re-eval Assessment 1. Little interest or pleasure in doing things: Not at all 2. Feeling down, depressed, or hopeless: Several days 3. Trouble falling or staying asleep, or sleeping too much: Not at all 4. Feeling tired or having little energy: Several days 5. Poor appetite or overeating: Not at all 6. Feeling bad about yourself -- or that you are a failure or have let yourself or your family down: Several days 7. Trouble concentrating on things, such as reading the newspaper or watching television: Not at all 8. Moving or speaking so slowly that other people could have noticed. Or the opposite - being so fidgety or restless that you have been moving around a lot more than usual: Not at all 9. Thoughts that you would be better off , or of hurting yourself in some way: Not at all How difficult have these problems made it for you to do your work, take care of things at home, or get along with other people?: Not difficult at all Total Score: 3 Self-Efficacy 30-Day Re-eval Assessment We would like to know how confident you are in doing certain activities. Please select your confidence level for:: Select your confidence level for the following using the scale 1-10 where 1 is not at all confident and 10 is totally confident. Your score is the average of all 6 responses. Fatigue: How confident are you that you can keep the fatigue caused by your disease from interfering with the things you want to do? Select Number: 9 Physical Discomfort or Pain: How confident are you that you can keep the physical discomfort or pain of your disease from interfering with the things you want to do? Select Number: 9 Emotional Distress: How confident are you that you can keep the emotional distress caused by your disease from interfering with the things you want to do? Select Number: 9 Other Symptoms or Health Problems: How confident are you that you can keep other symptoms or health problems from interfering with the things you want to do? Select Number: 9 Different Tasks and Activities: How confident are you that you can do the different tasks and activities needed to manage your health condition so as to reduce your need to see a doctor? Select Number: 9 Medication: How confident are you that you can do things other than just taking medication to reduce how much your illness affects your everyday life? Select Number: 9 Total Score:: 9
[2018-02-18 09:01] VITALS: BP 124/52; BP 154/70
== END 2018-03-11 23:59 ==
LOC: CR 09:15
PROVIDERS: Family Provider Family Medicine; PCP Family Medicine; Referring Provider Internal Medicine Cardiovascular Disease; Visit Provider Internal Medicine Cardiovascular Disease
DX: I21.3 ST elevation (STEMI) myocardial infarction of unspecified site (principal); I25.10 Atherosclerotic heart disease of native coronary artery without angina pectoris; I25.5 Ischemic cardiomyopathy; I25.2 Old myocardial infarction; Z95.5 Presence of coronary angioplasty implant and graft
CPT/HCPCS: 93798

== ENCOUNTER → 2018-03-31 08:56 | Outpatient (CLI) | payer MEDICARE, OTHER, SELFPAY ==
--- NOTE | 2018-03-31 08:59 | ECHOD_ITS ---
Reason For Study: CONGENITAL HEART DISEASE Procedure This was a 2D Doppler, Color Flow transthoracic echocardiogram. Exam performed in department. Left Ventricle Normal size and thickness. Apical false tendon noted. The estimated ejection fraction is 65 %. Stage 1 diastolic dysfunction. No regional wall motion abnormalities noted. Right Ventricle Normal size and thickness. Normal systolic function. Atria Normal left atrium. Normal right atrium. Normal atrial septum. Mitral Valve The mitral valve is structurally normal. No prolapse or stenosis seen. Tricuspid Valve Normal tricuspid valve. Unable to estimate RV systolic pressure due to inadequate jet, pulmonary artery pressure probably normal. Aortic Valve Moderate focal aortic valve thickening. Severe focal aortic valve calcification. moderate restriction of non coronary cusp. Mild aortic stenosis. Pulmonic Valve Normal pulmonic valve. Great Vessels Normal aortic root. Normal arch. Normal inferior vena cava. Inferior vena cava collapse with sniff. Pericardium/Pleural No pericardial effusion. MMode/2D Measurements & Calculations LVIDd: 4.6 cm IVSd: 1.0 cm LVOT diam: 2.0 cm LVIDs: 2.6 cm LVPWd: 1.1 cm LVOT area: 3.2 cm2 RVDd: 2.9 cm FS: 43.5 % Ao root diam: 3.2 cm LAV(MOD-bp): 50.0 ml LA A4 area: 18.7 cm2 LAV(MOD-bp) Indexed: 25.8 ml/m2 LAV(MOD-sp2): 50.7 ml LAV(MOD-sp4): 47.5 ml LA dimension(2D): 3.3 cm RA A4 area: 12.1 cm2 Time Measurements MV dec time: 0.43 sec Doppler Measurements & Calculations MV E max alfred: 59.0 cm/sec Lat Peak E' Alfred: 7.1 cm/sec Med Peak E' Alfred: 5.0 cm/sec MV A max alfred: 86.9 cm/sec E/E' lat: 8.3 E/E' med: 11.9 MV E/A: 0.68 Ao V2 max: 182.3 cm/sec LV V1 max: 109.3 cm/sec Ao max P.3 mmHg LV V1 max P.8 mmHg CINTHIA(V,D): 1.9 cm2 Interpretation Summary The estimated ejection fraction is 65 %. Stage 1 diastolic dysfunction. Unable to estimate RV systolic pressure due to inadequate jet, pulmonary artery pressure probably normal. moderate restriction of non coronary cusp. Compared to echo report dated 12/15/2017, LVEF has improved from 40% to 65%. Ordering Physician: Chayito Holden/Ye David Referring Physician: CATHERINE SANTIAGO Performed By: Risa Miller, NANCY, RVT
== END ==
PROVIDERS: Family Provider Family Medicine; PCP Family Medicine; Referring Provider Internal Medicine Cardiovascular Disease; Visit Provider Internal Medicine Cardiovascular Disease
DX: I25.5 Ischemic cardiomyopathy (principal)
CPT/HCPCS: 93306

== ENCOUNTER → 2018-04-07 07:44 | Outpatient (CLI) | payer MEDICARE, OTHER, SELFPAY ==
[2018-04-01 09:17] VITALS: BMI 26.6
--- NOTE | 2018-04-07 07:50 | AAVD_ITS ---
Reason For Study: AAA Aorta Measurements Aorta Doppler Measurements Proximal aorta measures1.75 x 1.81cm. in cross- Peak systolic flow velocities within the proximal sectional axis. aorta measure 93.0 cm/sec. Proximal aorta measures1.80cm. in longitudinal Peak systolic flow velocities within the mid aorta axis. measure 85.6 cm/sec. Mid aorta measures3.54 x 3.74cm. in cross- Peak systolic flow velocities within the distal sectional axis. aorta measure 67.2 cm/sec. Mid aorta measures3.47cm. in longitudinal axis. Distal aorta measures2.12 x 2.28cm. in cross- sectional axis. Distal aorta measures2.05cm. in longitudinal axis. Left Iliac Artery Left iliac artery measures 0.948 x 1.19 cm. in the cross-sectional axis. Left iliac artery measures 0.963 cm. in the longitudinal axis. Peak systolic velocity in the left iliac artery measures 106.0 cm/sec. Right Iliac Artery Right iliac artery measures 0.758 cm. in the longitudinal axis. Right iliac artery measures 0.864 x .950 cm. in the cross-sectional axis. Peak systolic velocity in the right iliac artery measures 100.0 cm/sec. Procedure Aorta IVC Iliac vasculature or bypass grafts [id number]. 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
--- OUTSIDE RECORDS SUMMARY | 2018-05-19 20:19 | XMS RPT_ITS ---
:1945 Author Organization OHIP Support Name Relationship Address Phone CHESS, ALLY Unavailable [address] + [place] [address] R Unavailable Unavailable Unavailable CHESS, ALLY Unavailable [address] + [place] [address] R Unavailable Unavailable Unavailable CHESS, ALLY Unavailable [address] + [place] [address] R Unavailable Unavailable Unavailable CHESS, ALLY Unavailable [address] + [place] [address] R Unavailable Unavailable Unavailable CHESS, ALLY Unavailable [address] + [place] [address] R Unavailable Unavailable Unavailable CHESS, ALLY Unavailable [address] + [place] [address] R Unavailable Unavailable Unavailable CHESS, ALLY Unavailable [address] + [place] [address] R Unavailable Unavailable Unavailable CHESS, ALLY Unavailable [address] + [place] [address] R Unavailable Unavailable Unavailable CHESS, ALLY Unavailable [address] + [place] [address] R Unavailable Unavailable Unavailable CHESS, ALLY Unavailable [address] + [place] [address] R Unavailable Unavailable Unavailable CHESS, ALLY Unavailable [address] + [place] [address] R Unavailable Unavailable Unavailable CHESS, ALLY Unavailable [address] + [place] [address] R Unavailable Unavailable Unavailable CHESS, ALLY Unavailable [address] + [place] [address] R Unavailable Unavailable Unavailable CHESS, ALLY Unavailable [address] + [place] [address] R Unavailable Unavailable Unavailable CHESS, ALLY Unavailable [address] + [place] [address] R Unavailable Unavailable Unavailable CHESS, ALLY Unavailable [address] + [place] [address] R Unavailable Unavailable Unavailable CHESS, ALLY Unavailable [address] + [place] [address] R Unavailable Unavailable Unavailable Chess, Ally Unavailable . + [place] [address] R Unavailable Unavailable Unavailable CHESS, ALLY Unavailable Unavailable + HURLEY, REBEKAH Unavailable / + [place] [address] R Unavailable Unavailable Unavailable HURLEY, REBEKAH Unavailable / + [place] [address] R Unavailable Unavailable Unavailable HURLEY, REBEKHA Unavailable Unavailable + [place] [address] R Unavailable Unavailable Unavailable HURLEY, REBEKAH Unavailable Unavailable + [place] [address] R Unavailable Unavailable Unavailable HURLEY, REBEKAH Unavailable Unavailable + [place] [address] R Unavailable Unavailable Unavailable HURLEY, REBEKAH Unavailable Unavailable + [place] [address] R Unavailable Unavailable Unavailable HURLEY, REBEKAH Unavailable Unavailable + [place] [address] R Unavailable Unavailable Unavailable HURLEY, REBEKAH Unavailable Unavailable + [place] [address] R Unavailable Unavailable Unavailable CHESS, ALLY Unavailable [address] + [place] [address] R Unavailable Unavailable Unavailable CHESS, ALLY Unavailable Unavailable + CHESS, ALLY Unavailable Unavailable + Care Team Providers Name Role Phone SUMEET AMIN, FIDELIA Pérez Attending Unavailable FIDELIA FAY MD Referring Unavailable PAMELA GARSIA, DR. ALEXANDER Primary Care Unavailable MASSIMO MEZA MD Attending Unavailable PAMELA GARSIA, DR. ALEXANDER Primary Care Unavailable MASSIMO MEZA MD Attending Unavailable PAMELA GARSIA, DR. ALEXANDER Primary Care Unavailable PAMELA, CATHERINE Primary Care Unavailable Ralph, Uzair Referring Unavailable Ralph, Uzair Admitting Unavailable Ralph, Uzair Attending Unavailable Ralph, Uzair Consulting Unavailable Ye David Consulting Unavailable Ralph, Uzair Admitting Unavailable Yenifer Crow Attending Unavailable Ralph, Uzair Referring Unavailable PAMELA, CATHERINE Primary Care Unavailable Ralph, Uzair Consulting Unavailable Ralph, Uzair Admitting Unavailable Ashelfah, Ghasem Attending Unavailable Ralph, Uzair Referring Unavailable PAMELA, CATHERINE Primary Care Unavailable Ralph, Uzair Consulting Unavailable Ye David Consulting Unavailable Ralph, Uzair Admitting Unavailable Ye David Attending Unavailable Ralph, Uzair Referring Unavailable PAMELA, CATHERINE Primary Care Unavailable Ralph, Uzair Consulting Unavailable Ye David Consulting Unavailable Ralph, Uzair Admitting Unavailable Ashelfah, Ghasem Attending Unavailable Ralph, Uzair Referring Unavailable PAMELA, CATHERINE Primary Care Unavailable Ralph, Uzair Consulting Unavailable Ye David Consulting Unavailable Ralph, Uzair Admitting Unavailable Ye David Attending Unavailable Ralph, Uzair Referring Unavailable PAMELA, CATHERINE Primary Care Unavailable Ralph, Uzair Consulting Unavailable Ye David Consulting Unavailable Ralph, Uzair Admitting Unavailable Ye David Attending Unavailable Ralph, Uzair Referring Unavailable PAMELA, CATHERINE Primary Care Unavailable Ralph, Uzair Consulting Unavailable Ye David Consulting Unavailable Ralph, Uzair Admitting Unavailable Ashelfah, Ghasem Attending Unavailable Ralph, Uzair Referring Unavailable PAMELA, CATHERINE Primary Care Unavailable Ralph, Uzair Consulting Unavailable Ye David Consulting Unavailable Chayito Holden Attending Unavailable PAMELA, CATHERINE Referring Unavailable Chayito Holden Attending Unavailable Chayito Holden Referring Unavailable PAMELA, CATHERINE Primary Care Unavailable Ye David Attending Unavailable Ye David Referring Unavailable PAMELA, CATHERINE Primary Care Unavailable Ye David Attending Unavailable Ye David Referring Unavailable PAMELA, CATHERINE Primary Care Unavailable Ye David Admitting Unavailable Ye David Attending Unavailable Ye David Referring Unavailable PAMELA, CATHERINE Primary Care Unavailable Ye David Admitting Unavailable Ye David Attending Unavailable Ye David Referring Unavailable PAMELA, CATHERINE Primary Care Unavailable Ye David Consulting Unavailable Ye David Attending Unavailable Ralph, Uzair Referring Unavailable Chayito Holden Attending Unavailable PAMELA, CATHERINE Referring Unavailable PAMELA, CATHERINE Primary Care Unavailable Jamar Rodas Attending Unavailable Chayito Holden Referring Unavailable Ye David Attending Unavailable David, Ye Referring Unavailable David, Ye Attending Unavailable David, Ye Referring Unavailable PAMELA, CATHERINE Primary Care Unavailable Gab Rosario Attending Unavailable David, Ye Referring Unavailable David, Ye Attending Unavailable David, Ye Referring Unavailable PAMELA, CATHERINE Primary Care Unavailable DavidYe Attending Unavailable David, Ye Referring Unavailable PAMELA, CATHERINE Primary Care Unavailable David, Ye Attending Unavailable David, Ye Referring Unavailable PAMELA, CATHERINE Primary Care Unavailable Ye David Consulting Unavailable Chayito Holden Attending Unavailable PAMELA, CATHERINE Referring Unavailable PAMELA, CATHERINE Attending Unavailable PAMELA, CATHERINE Referring Unavailable PAMELA, CATHERINE Primary Care Unavailable Ye David Attending Unavailable David, Ye Referring Unavailable PAMELA, CATHERINE Primary Care Unavailable Jamar Rodas Attending Unavailable PAMELA, CATHERINE Referring Unavailable PROBLEMS PROBLEMS DATE TYPE CONDITION / CODE ATTENDING STATUS SOURCE 04/11/2018 Unknown I21.3 - ST elevation Ye David Active [place] (STEMI) myocardial Community infarction of Hospital unspecified site / Repository I21.3(ICD-10) 04/20/2018 Unknown 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, Repository unspecified / I74.4(ICD-10) 03/31/2018 Unknown I25.5 - Ischemic Ye David Active [facility] cardiomyopathy / Community I25.5(ICD-10) Hospital Repository 01/05/2018 Unknown I25.10 - Luis Holden Atherosclerotic heart Chayito Gonzalez [facility] disease [facility] coronary artery Repository without angina pectoris / I25.10(ICD-10) 01/05/2018 Unknown I25.2 - Old Luis Holden myocardial infarction Chayito Gonzalez Community / I25.2(ICD-10) Hospital Repository 02/02/2018 Unknown R09.89 - Other Jamar Rodas Active [place] specified symptoms Community and signs involving Hospital the circulatory and Repository respiratory systems / R09.89(ICD-10) PROCEDURES PROCEDURES No Procedure Records FoundRESULTS RESULTS ABD AORTIC/IVC DUPLEX Observed: 04/07/2018 Status: F Source: [place] SC[place] 11:53 AM [facility] REPOSITORY [facility] Cardiovascular [place] [address] Abd Aortic/IVC Duplex scan 04/07/18 0756 MR#: [id number] Acct: [id number] Name: RAOUL FRITZ Rep #: [id number] : 1945 73 From: Jamar Rodas MD Attending Dr: Catherine Monique MD Status: REG CLI Ordering Dr: Catherine Monique MD Date: 04/07/18 Location: [facility] Sex: M C Admitted: Reason For Study: AAA Aorta Measurements Aorta Doppler Measurements Proximal aorta measures1.75 x 1.81cm. in cross- Peak systolic flow velocities within the proximal sectional axis. aorta measure 93.0 cm/sec. Proximal aorta measures1.80cm. in longitudinal Peak systolic flow velocities within the mid aorta axis. measure 85.6 cm/sec. Mid aorta measures3.54 x 3.74cm. in cross- Peak systolic flow velocities within the distal sectional axis. aorta measure 67.2 cm/sec. Mid aorta measures3.47cm. in longitudinal axis. Distal aorta measures2.12 x 2.28cm. in cross- sectional axis. Distal aorta measures2.05cm. in longitudinal axis. Left Iliac Artery Left iliac artery measures 0.948 x 1.19 cm. in the cross-sectional axis. Left iliac artery measures 0.963 cm. in the longitudinal axis. Peak systolic velocity in the left iliac artery measures 106.0 cm/sec. Right Iliac Artery Right iliac artery measures 0.758 cm. in the longitudinal axis. Right iliac artery measures 0.864 x .950 cm. in the cross-sectional axis. Peak systolic velocity in the right iliac artery measures 100.0 cm/sec. Procedure Aorta IVC Iliac vasculature or bypass grafts 08425. 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 [place] [address] OFFICE VISIT Date of Service: 04/01/18 MR#: [id number] Acct: [id number] Name: RAOUL FRITZ Rep #: [id number] : 1945 Provider: Chayito Holden Age/Sex: 73/M Location: [facility] Status: Signed HPI HPI Chief Complaint: STEMI Details: RAOUL FRITZ, is a 73 M who presents to the office today for a cardiovascular follow-up. He was admitted on December 14, 2017 to [facility] with an acute ST elevation myocardial infarction. His troponin did elevate to 28.9. He did undergo emergent angioplasty and stenting to his proximal mid LAD with balloon angioplasty to diagonal 1 branch utilizing the kissing balloon technique. He was noted to have nonobstructive disease in the circumflex. He was also noted to have a possible critical lesion of his mid RCA, this was stented during a staged procedure on 01/07/2018. During his initial hospitalization he was noted to have an EF of 40%. Repeat echo was done yesterday which demonstrated an improved EF of 65%. He does not have any chest pain/heaviness/tightness. His fatigue has improved. He does not have any worsening SOB. He does not have any orthopnea. He does not have any palpitations. He does sometimes feel lightheaded after taking his medication. He is still is able to do things but does not have energy. He does not have any near syncope/syncope. He does not have any edema. He does have arthritis, he was planning on having a knee replacement during this time. This has since been put on hold. Intake Vital Signs04/01/18 Height 5 ft 8 in 04/01/18 Weight: 175 lb 04/01/18 Body Mass Index (BMI) 26.6 04/01/18 Blood Pressure 110/70 Intake Visit Reasons: 3 M FU / ECHO 03-31 Employment Appeals Examiner Required: No Is patient in pain?: No Allergies oseltamivir [From Tamiflu] Allergy (Verified 04/01/18 09:20) Anaphylaxis Medications Aspirin [Aspirin, Baby] 81 mg PO DAILY@0800 #90 tab.chew 12/17/17 [Rx Confirmed 04/01/18] Carvedilol [Coreg (Beta Vinod)] 3.125 mg PO BID #90 tab 12/17/17 [Rx Confirmed 04/01/18] Lisinopril [Zestril] 5 mg PO DAILY #90 tab 12/17/17 [Rx Confirmed 04/01/18] clopidogrel 75 mg tablet 75 mg PO DAILY #34 tab 01/01/18 [Rx Confirmed 04/01/18] atorvastatin 40 mg tablet 40 mg PO DAILY 04/01/18 [History Confirmed 04/01/18] PFSH Medical History Essential hypertension (Chronic) Left carotid bruit (Chronic) Ischemic cardiomyopathy (Chronic) Arteriosclerosis of coronary artery in patient with history of myocardial infarction (Chronic 12/15/17) STEMI (ST elevation myocardial infarction) (Resolved 12/15/17) Osteoarthritis (Chronic) Surgical History Stented coronary artery (Chronic 01/07/18) Social History Smoking Status: Former smoker ROS Const Const: Negative for weakness, fever(s), headache(s) or fatigue Eyes Eyes: Negative for blind spots, loss of peripheral vision or transient loss of vision ENT ENT: Negative for headache(s) Cardio Chest Pain: No Palpitations: No Edema: None Muscle aches with walking: None Resp Respiratory: Negative for SOB with activity, SOB at rest, SOB orthopnea\SOB lying down or Cough GI GI: Negative nausea, vomiting, heartburn or vomiting blood/hematemesis : Negative for hematuria Musc Musc: Positive for muscle aches/ myalgia and joint pain Neuro Neuro: Negative for weakness or headache(s) Nelson Hematologic/Lymphatic: Negative for easy bleeding Endo Endo: Negative for fatigue Cardiology Exam Const Appearance: cooperative, no acute distress and well developed Orientation: alert, awake and oriented x3 Head Head: normocephalic and atraumatic Mouth: moist mucous membranes Eyes General: appearance normal, both eyes and all related structures Conjunctivae: conjunctivae normal Pupils: PERRL EOM: EOM intact bilaterally Neck Neck: normal visual inspection, no lymphadenopathy and no JVD Carotids: Negative bruit Neck Mass: Negative Neck mass Chest Chest inspection: normal inspection of the chest and symmetric chest movement Auscultation: Bilateral: Clear to Auscultation Cardio Palpation: normal PMI Rate: regular rate Rhythm: regular rhythm Heart sounds: S1 normal, S2 normal and murmur; negative rub or gallop Murmur: soft, Grade 2/6 and mid systolic GI GI: normal to inspection, soft, no hepatosplenomegaly and bowel sounds present; negative tender Neuro General: alert, awake, oriented x3, CN's II-XI intact bilaterally and moves all extremities Extremities Pulses: Normal: Right Posterior Tibial Pulse, Left Posterior Tibial Pulse, Right Radial Pulse, Left Radial Pulse Lower Extremity Edema: None: Bilateral Psych Psychological: normal affect Supplemental Info Echocardiogram from 03/2018 demonstrated: The estimated ejection fraction is 65 %. Stage 1 diastolic dysfunction. Unable to estimate RV systolic pressure due to inadequate jet, pulmonary artery pressure probably normal. moderate restriction of non coronary cusp. Compared to echo report dated 12/15/2017, LVEF has improved from 40% to 65%. Assessment AND Plan 1. Arteriosclerosis of coronary artery in patient with history of myocardial infarction I25.10; I25.2 PTCA and SONIA of proximal to mid LAD using 3.0 X 24 mm Synergy stent; PCI to ostial and proximal 1st diagonal per Dr. David, [facility], 12/15/17. SONIA to mid RCA (4X 38 Synergy) per Dr. David 01/07/2018 Plan Patient has not had any further episodes of chest discomfort. He is now in cardiac rehab. He is aware of the importance of his medications. He is aware that he needs to stay on his Plavix for at least 12 months prior to him proceeding with surgery. He is on moderate-dose statin therapy for aggressive medical management. Carotid duplex demonstrated: Smooth calcific plague at the proximal right internal carotid with <50% stenosis. Mild disease right external carotid Smooth calcific plague at the proximal left internal carotid with <50% stenosis. Mild disease bilateral external carotids Patent and antegrade vertebrals bilaterally although with diminished flow on the right. 2. Cardiomyopathy, ischemic I25.5 EF 40% per echo 12/15/[address] [facility], improved to 65% Plan Patient does have an ejection fraction of 40% this was post his myocardial infarction. Would like to repeat his echocardiogram in 3 months. For now he will continue with his aggressive medical management and risk factor modification. 3. Essential hypertension I10 Plan Blood pressure is well controlled on current medications, we do not recommend any changes at this time. 4. Left carotid bruit R09.89 Plan Pt does have mild disease, will continue to monitor. Plan Detail Additional Comments Thank you for allowing us to participate in the patients plan of care, if you have any questions please do not hesitate to call. This note was generated using a voice recognition system and there may be incorrect words, spelling or punctuation that were not noted when reviewing the office note prior to saving. Follow Up 6 Months (MINALN) Coding Level of Care Code Off vis,est,level 3 Diagnoses Arteriosclerosis of coronary artery in patient with history of myocardial infarction I25.10; I25.2 Cardiomyopathy, ischemic I25.5 Essential hypertension I10 Left carotid bruit R09.89 Coding Level of Care Code Off vis,est,level 3 Diagnoses Arteriosclerosis of coronary artery in patient with history of myocardial infarction I25.10; I25.2 Cardiomyopathy, ischemic I25.5 Essential hypertension I10 Left carotid bruit R09.89 04/01/18 1017 <Electronically signed by Chayito DE JESUS> Date Chayito DE JESUS Cosigner Signature: Date (if applicable) CC: Catherine Monique MD ECHOCARDIOGRAM COMPLETE Observed: 03/31/2018 Status: F Source: [place] 11:59 AM [facility] REPOSITORY [facility] Cardiovascular Services [address] [place] [address] Echo Complete 03/31/18 0859 MR#: [id number] Acct: [id number] Name: RAOUL FRITZ Rep #: [id number] : 1945 73 From: Ye David MD Attending Dr: Ye David MD Status: REG CLI Ordering Dr: Chayito Holden Date: 03/31/18 Location: [facility] Sex: M C Admitted: Reason For Study: CONGENITAL HEART DISEASE Procedure This was a 2D Doppler, Color Flow transthoracic echocardiogram. Exam performed in department. Left Ventricle Normal size and thickness. Apical false tendon noted. The estimated ejection fraction is 65 %. Stage 1 diastolic dysfunction. No regional wall motion abnormalities noted. Right Ventricle Normal size and thickness. Normal systolic function. Atria Normal left atrium. Normal right atrium. Normal atrial septum. Mitral Valve The mitral valve is structurally normal. No prolapse or stenosis seen. Tricuspid Valve Normal tricuspid valve. Unable to estimate RV systolic pressure due to inadequate jet, pulmonary artery pressure probably normal. Aortic Valve Moderate focal aortic valve thickening. Severe focal aortic valve calcification. moderate restriction of non coronary cusp. Mild aortic stenosis. Pulmonic Valve Normal pulmonic valve. Great Vessels Normal aortic root. Normal arch. Normal inferior vena cava. Inferior vena cava collapse with sniff. Pericardium/Pleural No pericardial effusion. MMode/2D Measurements AND Calculations LVIDd: 4.6 cm IVSd: 1.0 cm LVOT diam: 2.0 cm LVIDs: 2.6 cm LVPWd: 1.1 cm LVOT area: 3.2 cm2 RVDd: 2.9 cm FS: 43.5 % Ao root diam: 3.2 cm LAV(MOD-bp): 50.0 ml LA A4 area: 18.7 cm2 LAV(MOD-bp) Indexed: 25.8 ml/m2 LAV(MOD-sp2): 50.7 ml LAV(MOD-sp4): 47.5 ml LA dimension(2D): 3.3 cm RA A4 area: 12.1 cm2 Time Measurements MV dec time: 0.43 sec Doppler Measurements AND Calculations MV E max alfred: 59.0 cm/sec Lat Peak E' Alfred: 7.1 cm/sec Med Peak E' Alfred: 5.0 cm/sec MV A max alfred: 86.9 cm/sec E/E' lat: 8.3 E/E' med: 11.9 MV E/A: 0.68 Ao V2 max: 182.3 cm/sec LV V1 max: 109.3 cm/sec Ao max P.3 mmHg LV V1 max P.8 mmHg CINTHIA(V,D): 1.9 cm2 Interpretation Summary The estimated ejection fraction is 65 %. Stage 1 diastolic dysfunction. Unable to estimate RV systolic pressure due to inadequate jet, pulmonary artery pressure probably normal. moderate restriction of non coronary cusp. Compared to echo report dated 12/15/2017, LVEF has improved from 40% to 65%. Ordering Physician: Chayito Holden/Ye David Referring Physician: CATHERINE MONIQUE Performed By: Risa Miller, RDCS, RVT 03/31/18 1158 Date Ye David MD CC: Ye David MD; Catherine Monique MD; Chayito Holden Date Dictated: 03/31/18 0859 Date Transcribed: 03/31/181157 Bone Grinder: Signed CARDIOLOGY VISIT Observed: 01/21/2018 Status: F Source: [place] RE[place] 3:01 PM [facility] REPOSITORY [facility] [address] [place] [address] OFFICE VISIT Date of Service: 01/21/18 MR#: [id number] Acct: [id number] Name: RAOUL FRITZ Rep #: [id number] : 1945 Provider: Chayito Holden Age/Sex: 72/M Location: [facility] Status: Signed HPI HPI Details: RAOUL FRITZ, is a 72 M who presents to the office today for a cardiovascular follow-up. He was admitted on December 14, 2017 to [facility] with an acute ST elevation myocardial infarction. His troponin did elevate to 28.9. He did undergo emergent angioplasty and stenting to his proximal mid LAD with balloon angioplasty to diagonal 1 branch utilizing the kissing balloon technique. He was noted to have nonobstructive disease in the circumflex. He was also noted to have a possible critical lesion of his mid RCA, this was stented during a staged procedure on 01/07/2018. During his initial hospitalization he was noted to have an EF of 40%. Pt still complains of fatigue after taking his morning medications. He does not have any chest pain/heaviness/tightness. He does not have any worsening SOB. He does not have any orthopnea. He does not have any palpitations. He does sometimes feel lightheaded after taking his medication. He is still is able to do things but does not have energy. He does not have any near syncope/syncope. He does not have any edema. He does have arthritis, he was planning on having a knee replacement this month. This has since been put on hold. Intake Vital Signs01/21/18 Height 5 ft 8 in 01/21/18 Weight: 180 lb 01/21/18 Body Mass Index (BMI) 27.3 01/21/18 Blood Pressure 122/78 01/21/18 Blood Pressure Location Lt brachial Intake Visit Reasons: 2 WK S/P PCI Employment Appeals Examiner Required: No Is patient in pain?: No Allergies oseltamivir [From Tamiflu] Allergy (Verified 01/21/18 09:55) Anaphylaxis Medications Aspirin [Aspirin, Baby] 81 mg PO DAILY@0800 #90 tab.chew 12/17/17 [Rx Confirmed 01/21/18] Atorvastatin Calcium [Lipitor] 80 mg PO QHS #90 tab 12/17/17 [Rx Confirmed 01/21/18] Carvedilol [Coreg (Beta Vinod)] 3.125 mg PO BID #90 tab 12/17/17 [Rx Confirmed 01/21/18] Lisinopril [Zestril] 5 mg PO DAILY #90 tab 12/17/17 [Rx Confirmed 01/21/18] clopidogrel 75 mg tablet 75 mg PO DAILY #34 tab 01/01/18 [Rx Confirmed 01/21/18] PFSH Medical History Essential hypertension (Chronic) Left carotid bruit (Chronic) Ischemic cardiomyopathy (Acute) Arteriosclerosis of coronary artery in patient with history of myocardial infarction (Chronic 12/15/17) STEMI (ST elevation myocardial infarction) (Resolved 12/15/17) Osteoarthritis (Chronic) Surgical History Stented coronary artery (Chronic 01/07/18) Social History Smoking Status: Former smoker ROS Const Const: Positive for fatigue; negative for weakness, fever(s) or headache(s) Eyes Eyes: Negative for blind spots, loss of peripheral vision or transient loss of vision ENT ENT: Negative for headache(s), dizziness, tinnitus or Nosebleed/epistaxis Cardio Chest Pain: No Palpitations: No Edema: None Muscle aches with walking: None Resp Respiratory: Negative for SOB with activity, SOB at rest, SOB orthopnea\SOB lying down or Cough GI GI: Negative nausea, vomiting, heartburn or vomiting blood/hematemesis : Negative for hematuria Musc Musc: Positive for muscle aches/ myalgia and joint pain Neuro Neuro: Negative for weakness, headache(s), dizziness, near syncope, syncope, lightheadedness or orthostatic symptoms [place] Hematologic/Lymphatic: Negative for easy bleeding Endo Endo: Positive for fatigue Cardiology Exam Const Appearance: cooperative, no acute distress and well developed Orientation: alert, awake and oriented x3 Head Head: normocephalic and atraumatic Mouth: moist mucous membranes Eyes General: appearance normal, both eyes and all related structures Conjunctivae: conjunctivae normal Pupils: PERRL EOM: EOM intact bilaterally Neck Neck: normal visual inspection, no lymphadenopathy and no JVD Carotids: Negative bruit Neck Mass: Negative Neck mass Chest Chest inspection: normal inspection of the chest and symmetric chest movement Auscultation: Bilateral: Clear to Auscultation Cardio Palpation: normal PMI Rate: regular rate Rhythm: regular rhythm Heart sounds: S1 normal and S2 normal; negative rub, gallop or murmur GI GI: normal to inspection, soft, no hepatosplenomegaly and bowel sounds present; negative tender Neuro General: alert, awake, oriented x3, CN's II-XI intact bilaterally and moves all extremities Extremities Pulses: Normal: Right Posterior Tibial Pulse, Left Posterior Tibial Pulse, Right Radial Pulse, Left Radial Pulse Lower Extremity Edema: None: Bilateral Psych Psychological: normal affect Assessment AND Plan 1. Arteriosclerosis of coronary artery in patient with history of myocardial infarction I25.10; I25.2 PTCA and SONIA of proximal to mid LAD using 3.0 X 24 mm Synergy stent; PCI to ostial and proximal 1st diagonal per Dr. David, [facility], 12/15/17. SONIA to mid RCA (4X 38 Synergy) per Dr. David 01/07/2018 Plan Patient has not had any further episodes of chest discomfort. He is now in cardiac rehab. He is aware of the importance of his medications. He is aware that he needs to stay on his Plavix for at least 12 months prior to him proceeding with surgery. He is on high-dose statin therapy for aggressive medical management. 2. Essential hypertension I10 Plan Blood pressure is well controlled on current medications, we do not recommend any changes at this time. 3. Ischemic cardiomyopathy I25.5 EF 40% per echo 12/15/[address] [facility] Plan Patient does have an ejection fraction of 40% this was post his myocardial infarction. Would like to repeat his echocardiogram in 3 months. For now he will continue with his aggressive medical management and risk factor modification. Plan Detail Additional Comments Thank you for allowing us to participate in the patients plan of care, if you have any questions please do not hesitate to call. This note was generated using a voice recognition system and there may be incorrect words, spelling or punctuation that were not noted when reviewing the office note prior to saving. Follow Up 01/21/18 (Keep as is) Coding Level of Care Code Off vis,est,level 3 Diagnoses Arteriosclerosis of coronary artery in patient with history of myocardial infarction I25.10; I25.2 Essential hypertension I10 Ischemic cardiomyopathy I25.5 Coding Level of Care Code Off vis,est,level 3 Diagnoses Arteriosclerosis of coronary artery in patient with history of myocardial infarction I25.10; I25.2 Essential hypertension I10 Ischemic cardiomyopathy I25.5 01/21/18 1501 <Electronically signed by Chayito DE JESUS> Date Chayito DE JESUS Cosign Signature: Date (if applicable) CC: Catherine Monique MD 12 LEAD ELECTROCARDIOGRAM Observed: 01/09/2018 Status: F Source: [place] 1:39 PM [facility] REPOSITORY [facility] Cardiovascular Services [address] [place] [address] 12 Lead EKG 01/08/18 0527 MR#: [id number] Acct: [id number] Name: RAOUL FRITZ Rep #: [id number] : 1945 72 From: Gab Rosario MD Attending Dr: Ye David MD Status: DIS THANG Ordering Dr: Ye David MD Date: 01/08/18 Location: ICU Sex: Lisa Ferris Admitted: 01/07/18 Test Reason : AM EKG Blood Pressure : / mmHG Vent. Rate : 055 BPM Atrial Rate : 055 BPM P-R Int : 192 ms QRS Dur : 102 ms QT Int : 502 ms P-R-T Axes : 055 019 091 degrees QTc Int : [address] AND Marked T wave abnormality, consider anterolateral ischemia Prolonged QT Abnormal ECG Confirmed by ABRAHAM AMIN, GAB ([id number]), front office manager GLORIA KAY ([id number]) on 01/09/2018 1:39:01 PM Referred By: Ye David Confirmed By:GAB ROSARIO MD 01/09/18 1339 Date Gab Rosario MD CC: Ye David MD; Catherine Monique MD Signed DISCHARGE INSTRUCTION Observed: 01/08/2018 Status: F Source: [place] 4:17 PM [facility] REPOSITORY [facility] Medical Records Department [address] [place] [address] Instructions for Home/Discharge Instructions 01/08/18 0838 MR#: [id number] Acct: [id number] Name: RAOUL FRITZ Rep #: [id number] : 1945 72 From: Chayito DE JESUS PCP: Catherine Monique MD Status: DIS THANG Discharge Diet: Low fat/ Low Cholesterol May shower in (days): 1 May resume sexual activity in: 1 week - if no groin problems occur. Lifting Restrictions: 10 pounds and also avoid any pushing or pulling for 3 days after your test. Additional Activity Instructions:: You must have someone drive you home. Do not drive until instructed by your doctor. You must have someone stay with you all night after your test. Rest in bed or on the couch until the next morning. Limit the number of times you go up and down stairs the day of your test. Call your doctor if your incision/area has: Continuous Slow Oozing, Sudden Increased Bleeding, Increased Pain/ Swelling, Increased Redness, Foul Smelling Discharge Call your doctor if you observe: Fever of 101 or Higher, Shortness of breath, Chest pain Remove Dressing in (days):: 1 Cleanse incision/area with: Soap AND Water Additional Dressing/Incision Instructions:: Keep the dressing (bandage) on until the next morning. You may then shower, but do not take a tub bath for 5 days after your test. It is normal to have some tenderness and discomfort at the puncture site. Sometimes bruising also occurs. However, if pain, numbness, or coldness occurs below the puncture site (in your leg, toes, arms or fingers) call your doctor at once. You may have a small, marble sized knot at the puncture site. This is normal. Do not rub it. It will go away in 4-6 weeks. Bleeding can occur from the area where the puncture was done. Blood may spurt or drip from the site. If blood spurts, apply pressure right away to stop bleeding and call 911. Although rare, bleeding into the tissue (hematoma) can also occur. If this happens, a large, firm area goose egg under the skin will appear. If any of these occur, lie down as flat as you can and have someone apply firm pressure to the cath site with a gauze pad or a clean washcloth for 10-15 minutes. Call 911 or go to the Emergency Department. Allergies/Adverse Reactions: Allergies oseltamivir [From Tamiflu] Allergy (Verified 12/14/17 23:19) Anaphylaxis Medications to take at Discharge Aspirin [Aspirin, Baby] 81 mg PO DAILY@0800 #90 tab.chew 12/17/17 Atorvastatin Calcium [Lipitor] 80 mg PO QHS #90 tab 12/17/17 Carvedilol [Coreg (Beta Vinod)] 3.125 mg PO BID #90 tab 12/17/17 Lisinopril [Zestril] 5 mg PO DAILY #90 tab 12/17/17 Ticagrelor [Brilinta] 90 mg PO BID #90 tab 12/17/17 clopidogrel 75 mg tablet 75 mg PO DAILY #34 tab 01/01/18 Primary Care Physician: Catherine Monique MD [Primary Care Provider] - Test Results: Test results from this visit will be discussed in further detail at your follow-up appointment, if applicable. Please Follow Up With: Chayito Holden PA When: 01/21 at 1000 Cardiac Rehabilitation Info Cardiac Rehabilitation Program Information: Cardiac Rehabilitation is important for patients like you who are recovering from a heart problem. Cardiac rehabilitation programs are recognized as integral to the continued care of the patient with coronary heart disease. The cardiac rehabilitation program is designed to optimize a patient's physical, psychological, and social functioning. Health director of patient care work in cardiac rehabilitation programs and assist you with getting the treatments you need to get stronger and healthier - like exercise, healthy eating habits, and medications. Cardiac rehabilitation has been show to help people with heart problems live longer and have better life enjoyment than people who do not go to cardiac rehabilitation. Please contact the Cardiac Rehabilitation Program at [facility] at in two weeks if you have not heard from them. 01/08/18 1617 <Electronically signed by Chayito DE JESUS> Date Chayito DE JESUS CC: Catherine Mnoique MD 12 LEAD ELECTROCARDIOGRAM Observed: 01/08/2018 Status: F Source: [place] 1:47 PM [facility] REPOSITORY [facility] Cardiovascular Services [address] [place] [address] 12 Lead EKG 01/07/18 1111 MR#: [id number] Acct: [id number] Name: RAOUL FRITZ Rep #: [id number] : 1945 72 From: Gab Rosario MD Attending Dr: Ye David MD Status: DIS THANG Ordering Dr: Ye David MD Date: 01/07/18 Location: ICU Sex: M C Admitted: 01/07/18 Test Reason : Blood Pressure : / mmHG Vent. Rate : 049 BPM Atrial Rate : 049 BPM P-R Int : 192 ms QRS Dur : 102 ms QT Int : 532 ms P-R-T Axes : 054 032 085 degrees QTc Int : 480 ms Sinus bradycardia Marked T wave abnormality, consider anterolateral ischemia Prolonged QT Abnormal ECG Confirmed by ABRAHAM AMIN, GAB ([id number]), front office manager GLORIA KAY ([id number]) on 01/08/2018 1:46:46 PM Referred By: Ye David Confirmed By:GAB ROSARIO MD 01/08/18 1346 Date Gab Rosario MD CC: Ye David MD; Catherine Monique MD Signed CBC-COMPLETE BLOOD CNT Collected: 01/08/2018 Status: F Source: [place] NO DIFF 5:04 AM [facility] REPOSITORY TYPE CODE TESTS RESULT OUT OF RANGE REFERENCE UNITS LAB L100.1000 4.4-11.0 K/mm3 Normal WBC 7.7 LAB L100.1200 4.6-6.2 M/mm3 Low RBC 4.50 LAB L100.1300 13.0-16.5 g/dl Normal HGB 13.8 LAB L100.1400 40-54 % Normal HCT 41.2 LAB L100.1500 80-94 fL Normal MCV 91.6 LAB L100.1600 27.0-32.0 pg Normal MCH 30.7 LAB L100.1700 32-36 g/gl Normal MCHC 33.5 LAB L100.1810 11.6-14.6 % Normal RDW CV 12.9 LAB L100.1820 35.1-43.9 fl Normal RDW SD 42.6 LAB L100.1900 150-450 K/mm3 Normal PLT 262 LAB L100.2000 6.2-12.0 fl Normal MPV 9.9 Performed By: #### L100.0500 #### [facility] [address] [place], [address] COMPREHENSIVE METABOLIC Collected: 01/08/2018 Status: F Source: [place] PROFIL 5:04 AM [facility] REPOSITORY TYPE CODE TESTS RESULT OUT OF RANGE REFERENCE UNITS LAB L501.0100 74-106 mg/dL Normal GLU 100 Result Comment: Fasting Glucose result from 100 to 125 mg/dL suggests IMPAIRED HOMEOSTASIS per A.D.A. criteria. Please note revised GLUCOSE reference range effective 2017. LAB L501.1000 7-18 mg/dL Normal BUN 11 LAB L501.1100 0.70-1.30 mg/dL Normal CREAT,SERUM 0.86 Result Comment: The validity of the calculated GFR AND GFRAA in patients over 70 years has not been determined. Clinical correlation is essential. LAB L501.1110 >60 mL/min Normal EST GFR 93 Result Comment: Non- GFR Calc LAB L501.1115 >60 mL/min Normal EST GFR - AA 113 Result Comment: GFR Calc LAB L501.1255 ml/min Normal Estimated CRCL 76.22 LAB L501.1300 10-20 RATIO Normal BUN/CRE 12.8 LAB L501.1500 6.4-8. g/dL Low 2 T PROT 6.2 LAB L501.1800 3.2-5. g/dL Low 0 ALB 2.8 LAB L501.1950 2.2-4. g/dL Normal 2 GLOB 3.4 LAB L501.2000 0.9-2. RATIO Low 4 A/G 0.8 LAB L501.2200 8.5-10 mg/dL Low .1 CA 8.2 LAB L501.4100 15-37 U/L Normal AST 15 LAB L501.4305 45-117 U/L Normal ALK P 73 LAB L501.4405 16-61 U/L Normal ALT 17 LAB L501.4600 0.20-1 mg/dL Normal .00 T BILI 0.50 LAB L501.5300 136-14 mmol/L Normal 5 NA 142 LAB L501.5600 3.5-5. mmol/L Normal 1 K 4.0 LAB L501.5900 98-107 mmol/L High CL 108 LAB L501.6100 21.0-3 mmol/L Normal 2.0 CO2 26.0 LAB L501.6200 5-15 Normal GAP 8 Performed By: #### L500.4050, L500.4100 #### [facility] [address] [facility] [place], [address] LIPID PROFILE Collected: 01/08/2018 Status: F Source: [place] 5:04 AM [facility] REPOSITORY TYPE CODE TESTS RESULT OUT OF RANGE REFERENCE UNITS LAB L501.4900 200 mg/dL Normal CHOL 91 Result Comment: <200 mg/dL Desirable 200-240 mg/dL Borderline >240 mg/dL High Risk LAB L501.5000 mg/dL Normal TRIG 49 Result Comment: The drugs N-Acetylcysteine and Metamizole may falsely depress this assay. Serum Triglycerides Reference Interval Normal <150 mg/dL Borderline high 150 - 199 mg/dL High 200 - 499 mg/dL Very High > or = 500 mg/dL LAB L501.6400 mg/dL Low HDL 38 Result Comment: The drugs N-Acetylcysteine and Metamizole may falsely depress this assay. Reference Range HDL <40 mg/dL Low HDL Cholesterol HDL >or= 60 mg/dL High HDL Cholesterol LAB L501.6500 0-130 mg/dL Normal LDL 43 LAB L501.6600 5-40 mg/dL Normal VLDL 10 Performed By: #### L500.4050, L500.4100 #### [facility] [address] [place], [address] ACT ACTIVATED CLOTTING Collected: 01/07/2018 Status: F Source: [place] TIME 12:36 PM [facility] REPOSITORY TYPE CODE TESTS RESULT OUT OF RANGE REFERENCE UNITS LAB L9100.0100 74-137 sec High ACTk CLOT 147 TIME Performed By: #### L9100.0100 #### [facility] Point of Care [address] [place] [address] ACT ACTIVATED CLOTTING Collected: 01/07/2018 Status: F Source: [place] TIME 10:39 AM [facility] REPOSITORY TYPE CODE TESTS RESULT OUT OF RANGE REFERENCE UNITS LAB L9100.0100 74-137 sec High ACTk CLOT 202 TIME Performed By: #### L9100.0100 #### [facility] Point of Care [address] [place] [address] CR - HISTORY AND Observed: 01/06/2018 Status: F Source: [place] PHYSICAL 10:58 AM [facility] REPOSITORY [facility] Cardiac Rehab [address] [place] [address] CR - History AND Physical MR#: [id number] Acct: [id number] Name: RAOUL FRITZ Rep #: [id number] : 1945 72 From: Bob Jesus FREIGHT ENGINEER, REACH TRUCK OPERATOR, BS PCP: Catherine Monique MD DOS: 01/06/18 CR - History AND Physical - General Arrival date:: 01/06/18 Arrival time:: 10:20 Date of Referral:: 12/16/17 Date of CR Evaluation:: 01/06/18 Referring Physician: Ye David Primary Diagnosis: PTCA 12/15/2017, additional stent 01/07/2018 - History of Present Cardiac Event Onset Date: Enter Onset Date of cardiac illnesses in Comment field below Acute Myocardial Infarction within 12 months:: Yes - STEMI PTCA or coronary stenting:: Yes - 12/15/2017 AND 01/07/2018 Type of Symptoms:: Mid sternal chest pain very tight pressure Interventions with present event:: ER, emergent heart cath w/ coronary stent Were there any complications?: none - Medications Home Medications: Ambulatory Orders Medication Instructions Recorded - Allergies Allergies/Adverse Reactions: Allergies oseltamivir [From Tamiflu] Allergy (Verified 12/14/17 23:19) Anaphylaxis - Sleep Disorder Evaluation Hx of Sleep Apnea: Yes Do you snore loudly (louder than talking or can be heard through closed doors)?: Yes - wore CPAP at HS years ago. Since stent done has lessened. Do you often feel tired/ fatigued/ sleepy during daytime?: Yes - sometimes, may be related to medications. Feels better before taking meds. Has anyone observed you stop breathing during sleep?: No History of Hypertension (for STOP score): Yes STOP Results: Positive Advanced Directives - Advanced Directives Power of [place] Refinisher: Yes Living Will: Yes Advance Directives Information Provided: No Advance Directives on File: Yes - patient feels pretty sure they are on file DNR Order?:: No - MOLST See MOLST form: No Past Medical History - Past Medical Illness Medical History: Past Medical History (Last Updated 01/02/18 @ 15:38 by NEAL Chowdhury) Essential hypertension (Acute) I10 Left carotid bruit (Acute) R09.89 Ischemic cardiomyopathy (Acute) I25.5 EF 40% per echo 12/15/[address] [facility] Arteriosclerosis of coronary artery in patient with history of myocardial infarction (Acute) Onset Date: 12/15/17 I25.10, I25.2 PTCA and SONIA of proximal to mid LAD using 3.0 X 24 mm Synergy stent; PCI to ostial and proximal 1st diagonal per Dr. David [facility] STEMI (ST elevation myocardial infarction) (Acute) Onset Date: 12/15/17 I21.3 Anterior STEMI Osteoarthritis (Chronic) M19.90 - Past Surgical History Surgical History: Past Surgical History (Last Updated 12/16/17 @ 10:06 by Ary Granados) Stented coronary artery (Acute) Onset Date: 12/15/17 Z95.5 PTCA and SONIA of proximal to mid LAD using 3.0 X 24 mm Synergy stent; PCI to ostial and proximal 1st diagonal per Dr. David, [facility] Surgical History: - - Ectomy, left knee arthroscopic surgery. Social History - Smoking History Smoking Status: Former smoker Years Smokin Packs Smoked per Day: 1 Hx Smoking Cessation Date: 21 years ago Hx Tobacco Use: Yes Hx Smoking Exposure: No - Alcohol Use Alcohol Usage: Yes - very little; maybe one drink a month if even that. - Substance Abuse Hx Substance Use: No - Occupation Occupation (List type of work in comments):: Retired - Hobbies, Recreation, Social Activities Hobbies: Sports - [employer], Other - [employer], Recreational Activities: I am able to engage in most, but not all activities Social Environment - Status Marital Status: - Current Living Arrangements Living Environment:: Spouse - Children How many children do you have?: 2 Do any of your children live nearby?: Yes - one close, son in [place] - Safety Do you feel safe in your surroundings?: Yes - Assistance Do you need any assistance at home?: no Review of Systems - Review of Systems Hints: Right click = Denies (Slash). Left click = Reports ([place]) Review of Present Symptoms: Reports: Shortness of Breath with Exertion - Noticed if climbing a couple flights of stairs notices some shortness of breath., Fatigue, Appetite - Normal, Appetite - Special Diet - Blood type diet., Sleep - Normal, Sexual Changes - has had E.D. for number of years, year ago has since remarried. Has talked with Chayito and Dr. David about possible use of meds after stent done.. Denies: Shortness of Breath at Rest, Dizziness/Lightheadedness, Heart Arrhythmia/Irregularities - Pain Is Patient Pain Free?: No Pain Location: other - left knee; Pain Level: 5/10 - hurts pretty bad at times, can go from 1 or 2 to level of 6-7 easy. 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 - Diabetes Nutrition Referral for Diabetes: No - Obesity Height: 5 ft 8 in Weight:: 175 lb Weight in Pounds: 175.0 lbs Weight Source: Standing Scale Body Mass Index (BMI): 26.6 Nutritional Referral for Obesity: No - Physical Inactivity Physical Inactivity: None - Risk Stratification Risk Guidelines: Lowest Risk: Risk Factor for Smoking, Risk Factor for Dyslipidemia, Risk Factor for Diabetes, Risk Factor for Hypertension, Risk Factor for Sedentary Lifestyle, Risk Factor for Depression, Moderate Risk: Risk Factor for Obesity - For Smoking Smoking Risk Guidelines: Smoking Low Risk: None or quit greater than 6 months ago. Smoking Moderate Risk: Smoker or quit 6 months or less ago. Smoking High Risk: Smoker - For Dyslipidemia Dyslipidemia Risk Guidelines: Low Risk: Moderate Risk: High Risk: 15-25% fat 25.1-29% fat >/= 30% fat. <7% sat fat 7-9% sat fat >9% sat fat. <150 mg chol 150-299 mg chol >/= 300 mg chol. LDL <100 LDL 100-129 LDL >/= 130. Chol/HDL ratio <5.0 Chol/HDL ratio 5.0-6.0 Chol/HDL ratio >6.0. Triglycerides <100 Triglycerides 100-149 Triglycerides >/= 150 - For Diabetes Mellitus Diabetes Risk Guidelines: Diabetes Low Risk: HgA1c <6.5% and/or FBG <120. Diabetes Moderate Risk: HgA1c 6.6-7.9% and/or FBG 120- 180. Diabetes High Risk: HgA1c >/= 8% and/or FBG >180 - For Obesity/Overweight Obesity/Overweight Risk Guidelines: Obesity Low Risk: BMI <25.0. Obesity Moderate Risk: BMI 25-29.9. Obesity High Risk: BMI >/= 30.0 - For Hypertension Hypertension Risk Guidelines: Hypertension Low Risk: Systolic <120 and Diastolic <80. Hypertension Moderate Risk: Systolic 120-139 and Diastolic 80-89. Hypertension High Risk: Systolic >/= 140 and Diastolic >/= 90 - For Sedentary Lifestyle Sedentary Lifestyle Risk Guidelines: Sedentary Lifestyle Low Risk: >/= 1,500 kcal/week. Sedentary Lifestyle Moderate Risk: 700-1,499 kcal/week. Sedentary Lifestyle High Risk: < 700 kcal/week - For Depression Depression Risk Guidelines: Depression Low Risk: Not clinically depressed. Depression Moderate Risk: Mildly depressed. Depression High Risk: Clinically depressed Motivation - Motivation to Participate On a scale of 1 to 10, how prepared are you to commit to attending program?: 10 - willing ablke to try it. What do you see as barriers to successfully being able to complete the program?: left knee problems What do you see as the benefits of succesfully completing the program? In other words, what do you hope to get out of participating in the program?: more stamina Are there issues you are dealing with that will interfere with completing the program?: left knee needs to be replaced. Was scheduled for surgery but had STEMI. Do you have a spouse or signficant other, family or friends who will help support you to complete the program?: yes 01/06/18 1043 <Electronically signed by Bob Jesus CRT, RCP, BS> Date Bob Jesus CRT, RCP, BS Outcome assessment reviewed. Exercise plan approved as documented. Treatment plan and goals support patient needs/abilities. Continue with current plan. I certify the patient demonstrates improvement and remains willing and capable of participation. the patient continues to benefit from cardiac rehab services/training. The patient may continue at current intensity, endurance and modality and progress per protocol. 01/06/18 1058 <Electronically signed by Ye David MD> Daryn Signature: Date Ye David MD CC: Signed CAROTID DUPLEX Observed: 01/05/2018 Status: F Source: [place] ULTRASOUND 5:49 PM [facility] REPOSITORY [facility] Cardiovascular Services [address] [place] [address] Carotid Duplex Ultrasound 01/05/18 1347 MR#: [id number] Acct: [id number] Name: RAOUL FRITZ Rep #: [id number] : 1945 72 From: Jamar Rodas MD Attending Dr: Chayito Holden Status: REG CLI Ordering Dr: Chayito Holden Date: 01/05/18 Location: [facility] Sex: M C Admitted: Reason For Study: Carotid bruit Rt. Velocities/BP Lt. Velocities/BP Prox CCA 91.5/15.2 cm/sec. Prox CCA 97.3/20.5 cm/sec. Mid CCA 101.0/15.8 cm/sec. Mid CCA 94.0/16.6 cm/sec. Dist CCA 89.1/15.8 cm/sec. Dist CCA 85.2/14.9 cm/sec. Prox ICA 79.7/17.6 cm/sec. Prox ICA 100.0/25.2 cm/sec. Mid ICA 86.2/24.0 cm/sec. Mid ICA 84.8/24.9 cm/sec. Dist ICA 55.8/16.5 cm/sec. Dist ICA 75.4/20.0 cm/sec. Rt. ICA/CCA = .85. Lt. ICA/CCA = 1.1. Prox ECA 136.0/9.4 cm/sec. Prox ECA 122.0/8.2 cm/sec. Rt. Vert. 24.0/10.2 cm/sec. Lt. Vert. 80.1/23.6 cm/sec. Right Extracranial There is intimal thickening but no significant atherosclerotic plaque noted in the right common carotid artery. There is heterogeneous, irregular atherosclerotic plaque noted in the right internal carotid artery. There is heterogeneous, irregular atherosclerotic plaque noted in the right external carotid artery. Antegrade flow is noted in the right vertebral artery. Left Extracranial There is homogeneous, smooth atherosclerotic plaque noted in the left common carotid artery. There is heterogeneous, irregular atherosclerotic plaque noted in the left internal carotid artery. There is intimal thickening but no significant atherosclerotic plaque noted in the left external carotid artery. Antegrade flow is noted in the left vertebral artery. Procedure Carotid Duplex [id number]. Exam performed in department. 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 Mild disease right external carotid Smooth calcific plague at the proximal left internal carotid with <50% stenosis. Mild disease bilateral external carotids Patent and antegrade vertebrals bilaterally although with diminished flow on the right. Ordering Physician: Chayito Holden Referring Physician: Catherine Monique Performed By: Shi Perez RVT 01/05/18 174 Date Jamar Rodas MD CC: Catherine Monique MD; Chayito Holden Date Dictated: 01/05/18 1347 Date Transcribed: 01/05/181747 Bone Grinder: Signed LIVER PROFILE Collected: 01/05/2018 Status: F Source: [place] 11:24 AM [facility] REPOSITORY TYPE CODE TESTS RESULT OUT OF RANGE REFERENCE UNITS LAB L501.1500 6.4-8.2 g/dL Normal T PROT 7.2 LAB L501.1800 3.2-5.0 g/dL Normal ALB 3.3 LAB L501.1950 2.2-4.2 g/dL Normal GLOB 3.9 LAB L501.4100 15-37 U/L Low AST 11 LAB L501.4305 45-117 U/L Normal ALK P 93 LAB L501.4405 16-61 U/L Normal ALT 18 LAB L501.4600 0.20-1.00 mg/dL Normal T BILI 0.70 LAB L501.4700 0.00-0.30 mg/dL Normal D BILI 0.21 Performed By: #### L500.3400, L500.4100 #### [facility] [address] [place], [address] LIPID PROFILE Collected: 01/05/2018 Status: F Source: [place] 11:24 AM [facility] REPOSITORY TYPE CODE TESTS RESULT OUT OF RANGE REFERENCE UNITS LAB L501.4900 200 mg/dL Normal CHOL 96 Result Comment: <200 mg/dL Desirable 200-240 mg/dL Borderline >240 mg/dL High Risk LAB L501.5000 mg/dL Normal TRIG 56 Result Comment: The drugs N-Acetylcysteine and Metamizole may falsely depress this assay. Serum Triglycerides Reference Interval Normal <150 mg/dL Borderline high 150 - 199 mg/dL High 200 - 499 mg/dL Very High > or = 500 mg/dL LAB L501.6400 mg/dL Normal HDL 44 Result Comment: The drugs N-Acetylcysteine and Metamizole may falsely depress this assay. Reference Range HDL <40 mg/dL Low HDL Cholesterol HDL >or= 60 mg/dL High HDL Cholesterol LAB L501.6500 0-130 mg/dL Normal LDL 41 LAB L501.6600 5-40 mg/dL Normal VLDL 11 Performed By: #### L500.3400, L500.4100 #### [facility] [address] [place], [address] CARDIOLOGY VISIT Observed: 01/02/2018 Status: F Source: [place] REPORT 3:41 PM [facility] REPOSITORY [facility] [address] [place] [address] OFFICE VISIT Date of Service: 01/01/18 MR#: [id number] Acct: [id number] Name: RAOUL FRITZ Rep #: [id number] : 1945 Provider: Chayito Holden Age/Sex: 72/M Location: [facility] Status: Signed HPI HPI Details: RAOUL FRITZ, is a 72 M who presents to the office today for a hospital follow-up. He was admitted on December 14, 2017 to [facility] with an acute ST elevation myocardial infarction. His troponin did elevate to 28.9. He did undergo emergent angioplasty and stenting to his proximal mid LAD with balloon angioplasty to diagonal 1 branch utilizing the kissing balloon technique. He was noted to have nonobstructive disease in the circumflex. He was also noted to have a possible critical lesion of his mid RCA and he is planned to undergo stenting of this in the near future. He was noted to have an ejection fraction of 40%. He was discharged home on an aspirin, Brilinta, beta vinod, SANKET inhibitor and statin therapy. Prior to his SD he had short lasting chest discomfort. The day that he presented to the ER with chest heaviness. Since being home he has been doing okay. He does not have any chest pain/heaviness/tightness. He does not have any worsening SOB. He does not have any orthopnea. He does not have any palpitations. He does sometimes feel lightheaded after taking his medication. He sts that some mornings he wakes up and feels so and then he feels fatigued after he takes his medication. He is still is able to do things but does not have energy. He does not have any near syncope/syncope. He does not have any edema. Intake Vital Signs01/01/18 Height 5 ft 8 in 01/01/18 Weight: 180 lb 01/01/18 Body Mass Index (BMI) 27.3 01/01/18 Blood Pressure 120/80 01/01/18 Pulse Rate 72 Intake Visit Reasons: S/P [facility] Allergies oseltamivir [From Tamiflu] Allergy (Verified 12/14/17 23:19) Anaphylaxis Medications Aspirin [Aspirin, Baby] 81 mg PO DAILY@0800 #90 tab.chew 12/17/17 [Rx Confirmed 01/01/18] Atorvastatin Calcium [Lipitor] 80 mg PO QHS #90 tab 12/17/17 [Rx Confirmed 01/01/18] Carvedilol [Coreg (Beta Vinod)] 3.125 mg PO BID #90 tab 12/17/17 [Rx Confirmed 01/01/18] Lisinopril [Zestril] 5 mg PO DAILY #90 tab 12/17/17 [Rx Confirmed 01/01/18] Ticagrelor [Brilinta] 90 mg PO BID #90 tab 12/17/17 [Rx Confirmed 01/01/18] clopidogrel 75 mg tablet 75 mg PO DAILY #34 tab 01/01/18 [Rx Confirmed 01/01/18] [facility] Medical History Essential hypertension (Acute) Left carotid bruit (Acute) Ischemic cardiomyopathy (Acute) Arteriosclerosis of coronary artery in patient with history of myocardial infarction (Acute 12/15/17) STEMI (ST elevation myocardial infarction) (Acute 12/15/17) Osteoarthritis (Chronic) Surgical History Stented coronary artery (Acute 12/15/17) Social History Smoking Status: Former smoker ROS Const Const: Positive for fatigue; negative for weakness, fever(s) or headache(s) Eyes Eyes: Negative for blind spots, loss of peripheral vision or transient loss of vision ENT ENT: Negative for headache(s), dizziness, tinnitus or Nosebleed/epistaxis Cardio Chest Pain: No Palpitations: No Edema: None Muscle aches with walking: None Resp Respiratory: Negative for SOB with activity, SOB at rest, SOB orthopnea\SOB lying down or Cough GI GI: Negative nausea, vomiting, heartburn or vomiting blood/hematemesis : Negative for hematuria Musc Musc: Negative for muscle aches/ myalgia Neuro Neuro: Negative for weakness, headache(s), dizziness, near syncope, syncope, lightheadedness or orthostatic symptoms Nelson Hematologic/Lymphatic: Negative for easy bleeding Endo Endo: Positive for fatigue Cardiology Exam Const Appearance: cooperative, no acute distress and well developed Orientation: alert, awake and oriented x3 Head Head: normocephalic and atraumatic Mouth: moist mucous membranes Eyes General: appearance normal, both eyes and all related structures Conjunctivae: conjunctivae normal Pupils: PERRL EOM: EOM intact bilaterally Neck Neck: normal visual inspection, no lymphadenopathy and no JVD Carotids: Negative bruit Neck Mass: Negative Neck mass Chest Chest inspection: normal inspection of the chest and symmetric chest movement Auscultation: Bilateral: Clear to Auscultation Cardio Palpation: normal PMI Rate: regular rate Rhythm: regular rhythm Heart sounds: S1 normal and S2 normal; negative rub, gallop or murmur GI GI: normal to inspection, soft, no hepatosplenomegaly and bowel sounds present; negative tender Neuro General: alert, awake, oriented x3, CN's II-XI intact bilaterally and moves all extremities Extremities Pulses: Normal: Right Posterior Tibial Pulse, Left Posterior Tibial Pulse, Right Radial Pulse, Left Radial Pulse Lower Extremity Edema: None: Bilateral Psych Psychological: normal affect Assessment AND Plan 1. Arteriosclerosis of coronary artery in patient with history of myocardial infarction I25.10; I25.2 PTCA and SONIA of proximal to mid LAD using 3.0 X 24 mm Synergy stent; PCI to ostial and proximal 1st diagonal per Dr. David, [facility] Plan Patient is scheduled to have a staged procedure for stenting next week. After that he will continue with aggressive medical management and risk factor modification. After this he will then be referred to cardiac rehab. He will need to have his lipids rechecked in the near future as he was recently started on Lipitor for risk factor modification. Orders Orders: 2. Left carotid bruit R09.89 Plan Patient does have a newly found left carotid bruit. Will obtain a carotid ultrasound to evaluate stability. Orders Orders: 3. Ischemic cardiomyopathy I25.5 EF 40% per echo 12/15/[address] [facility] Plan Patient was noted to have a decrease in his ejection fraction during his myocardial infarction. Would like to repeat an echocardiogram in 3 months to assure that this is improved. Orders Orders: 4. Essential hypertension I10 Plan Blood pressure is well controlled on current medications, we do not recommend any changes at this time. Plan Detail Other Medications New: clopidogrel (Plavix) take 4 on the first day and then once daily. Pt t75 mg PO DAILY o start after finishes Brillinta. Follow Up 2 Weeks (after cath) 3 Months (around giving- echo close to that time) Coding Level of Care Code Off vis,est,level 4 Diagnoses Arteriosclerosis of coronary artery in patient with history of myocardial infarction I25.10; I25.2 Left carotid bruit R09.89 Ischemic cardiomyopathy I25.5 Essential hypertension I10 Coding Level of Care Code Off vis,est,level 4 Diagnoses Arteriosclerosis of coronary artery in patient with history of myocardial infarction I25.10; I25.2 Left carotid bruit R09.89 Ischemic cardiomyopathy I25.5 Essential hypertension I10 01/02/18 2301 <Electronically signed by Chayito DE JESUS> Date Chayito DE JESUS Cosigner Signature: Date (if applicable) CC: Catherine Monique MD 12 LEAD ELECTROCARDIOGRAM Observed: 12/22/2017 Status: F Source: [place] 4:01 PM [facility] REPOSITORY [facility] Cardiovascular Services [address] [place] [address] 12 Lead EKG 12/17/17 0500 MR#: [id number] Acct: [id number] Name: RAOUL FRITZ Rep #: [id number] : 1945 72 From: Jose Luis Vargas MD Attending Dr: Uzair Ralph MD Status: DIS IN Ordering Dr: Uzair Ralph MD Date: 12/17/17 Location: ICU Sex: M C Admitted: 12/14/17 Test Reason : AM EKG Blood Pressure : / mmHG Vent. Rate : 058 BPM Atrial Rate : 058 BPM P-R Int : 182 ms QRS Dur : 098 ms QT Int : 494 ms P-R-T Axes : 054 050 094 degrees QTc Int : [address] elevation consider inferior injury or acute infarct Prolonged QT ACUTE SD / STEMI Consider right ventricular involvement in acute inferior infarct Abnormal ECG Confirmed by JOSEL UIS VARGAS MD ([id number]), front office manager GLORIA KAY ([id number]) on 12/22/2017 4:00:35 PM Referred By: Uzair Ralph Confirmed By:JOSE LUIS VARGAS MD 12/22/17 1600 Date Jose Luis Vargas MD CC: Catherine Monique MD; Uzair Ralph MD Signed 12 LEAD ELECTROCARDIOGRAM Observed: 12/22/2017 Status: F Source: J[place] 4:00 PM [facility] HOSPITAL REPOSITORY [facility] Cardiovascular Services [address] [place] [address] 12 Lead EKG 12/16/17 0542 MR#: [id number] Acct: [id number] Name: RAOUL FRITZ Rep #: [id number] : 1945 72 From: Jose Luis Vargas MD Attending Dr: Uzair Ralph MD Status: DIS IN Ordering Dr: Uzair Ralph MD Date: 12/16/17 Location: ICU Sex: M C Admitted: 12/14/17 Test Reason : AM EKG Blood Pressure : / mmHG Vent. Rate : 053 BPM Atrial Rate : 053 BPM P-R Int : 182 ms QRS Dur : 096 ms QT Int : 516 ms P-R-T Axes : 062 040 091 degrees QTc Int : [address] AND Marked T wave abnormality, consider anterolateral ischemia Prolonged QT Abnormal ECG Confirmed by JOSE LUIS VARGAS MD ([id number]), front office manager GLORIA KAY ([id number]) on 12/22/2017 3:59:57 PM Referred By: Uzair Ralph Confirmed By:JOSE LUIS VARGAS MD 12/22/17 1600 Date Jose Luis Vargas MD CC: Catherine Mnoique MD; Uzair Ralph MD Signed 12 LEAD ELECTROCARDIOGRAM Observed: 12/22/2017 Status: F Source: [place] 4:00 PM [facility] REPOSITORY [facility] Cardiovascular Services [address] [place] [address] 12 Lead EKG 12/16/17 1458 MR#: [id number] Acct: [id number] Name: RAOUL FRITZ Rep #: [id number] : 1945 72 From: Jose Luis Vargas MD Attending Dr: Uzair Ralph MD Status: DIS IN Ordering Dr: Uzair Ralph MD Date: 12/15/17 Location: ICU Sex: M C Admitted: 12/14/17 Test Reason : DIZZINESS Blood Pressure : / mmHG Vent. Rate : 063 BPM Atrial Rate : 063 BPM P-R Int : 180 ms QRS Dur : 096 ms QT Int : 528 ms P-R-T Axes : 049 035 104 degrees QTc Int : 540 ms Normal sinus rhythm Anterior infarct , age undetermined Inferior injury pattern Prolonged QT ACUTE SD / STEMI Consider right ventricular involvement in acute inferior infarct Abnormal ECG Confirmed by JOSE LUIS VARGAS MD ([id number]), front office manager GLORIA KAY ([id number]) on 12/22/2017 4:00:15 PM Referred By: Uzair Ralph Confirmed By:JOSE LUIS VARGAS MD 12/22/17 1600 Date Jose Luis Vargas MD CC: Catherine Monique MD; Uzair Ralph MD Signed DISCHARGE SUMMARY Observed: 12/17/2017 Status: F Source: [place] 1:11 PM [facility] REPOSITORY [facility] Medical Records Department [address] [place], [place] [address] [address] Discharge Summary 12/17/17 1303 MR#: [id number] Acct: [id number] Name: RAOUL FRITZ Rep #: [id number] : 1945 72 From: Kina Villegas MD PCP: Catherine Monique MD Status: DIS IN Y Location: ICU ICU06-1 Discharge Date and Diagnosis Date of Admission: 12/14/17 Date of Discharge: 12/17/17 - Primary Discharge Diagnosis #[address] elevation SD, status post successful PTCA/D is to proximal to mid LAD, status post PCI with PTCA to the posterior to proximal first diagonal branch. #2 ischemic cardiomyopathy/ejection fraction of 40%. #3 hypokalemia. - Secondary Discharge Diagnosis Chronic Problems (Last Updated 12/16/17 @ 10:07 by Ary Granados) Osteoarthritis (Chronic) Hospital Course and Treatment Imaging Results: Clinical Impression(s) from Imaging Studies Chest X-Ray 12/14/17 23:00 IMPRESSION: There are no acute findings. Electronically Signed: Victor Hugo Minor MD at 23:29 EDT , Service support , Dr. David, cardiology. Procedures: 2-D Echocardiogram, Cardiac catheterization, EKG Summary of Care Provided: Patient seen and examined on the day of discharge and appeared to be stable to be discharged home. He denies any symptoms. His vital signs are stable. - Physical Exam General: Alert, Oriented x3, Cooperative, No apparent distress. HEENT: Atraumatic, PERRLA, EOMI. Neck: Supple, No JVD, Negative Carotid Bruits, Trachea Midline, Thyroid Normal. Lungs: Clear to auscultation, Normal air movement, No rhonchi, No wheeze, No rales. Cardiovascular: Regular rate, Regular Rhythm, Normal S1, Normal S2, PMI Normal. Abdomen: Bowel Sounds Present, Soft, Non Tender, Non-Distended, No Hepato-splenomegaly. Extremities: No clubbing, No cyanosis, No edema Skin: No rashes, No breakdown Neurological: Neuro grossly intact Vital Signs are stable. Hospital course: The patient is a 72 year old M admitted because of chest pain and he was found to have acute ST elevation SD. He underwent emergent cardiac catheterization that revealed CAD of the proximal to mid LAD as well as posterior to the proximal first diagonal branch and he underwent successful PTCA and drug-eluting stent to proximal to mid LAD and PTCA to the ostial to proximal first diagonal branch. Patient was treated with aspirin, statins, beta blockers, SANKET inhibitors and loading dose of Brilinta. 2D echocardiography revealed ejection fraction 40%, mild aortic stenosis, other findings reviewed. On cardiac catheterization, he also was found to have probably a critical lesion in the mid RCA and cardiology is planning to have patient return in 3 weeks for PCI of the RCA. After the emergent cardiac catheterization and stenting, patient did very well and he had no more chest pain or shortness of breath. His vital signs remained stable. Patient discharged home in a stable medical condition, discharged on aspirin, Lipitor, Coreg, lisinopril and Brilinta, plan to follow-up with cardiology in 3 weeks for PCI of the RCA, recommended follow-up with PCP in 2 weeks. Discharge Activity: Return to Normal Activity Weight Bearing Status: Weight bearing as tolerated Call your doctor if you observe: Fever of 101 or Higher, Shortness of breath, Dizziness, Fainting spells, Chest pain, Increased palpitations (irregular heartbeat), Uncontrolled pain Home Medications: Medications to take at Discharge Aspirin [Aspirin, Baby] 81 mg PO DAILY@0800 #90 tab.chew 12/17/17 Atorvastatin Calcium [Lipitor] 80 mg PO QHS #90 tab 12/17/17 Carvedilol [Coreg (Beta Vinod)] 3.125 mg PO BID #90 tab 12/17/17 Lisinopril [Zestril] 5 mg PO DAILY #90 tab 12/17/17 Ticagrelor [Brilinta] 90 mg PO BID #90 tab 12/17/17 Following Prescrptions Were Given to Patient: Aspirin [Aspirin, Baby] 81 mg PO DAILY@0800 #90 tab.chew Atorvastatin Calcium [Lipitor] 80 mg PO QHS #90 tab Lisinopril [Zestril] 5 mg PO DAILY #90 tab Carvedilol [Coreg (Beta Vinod)] 3.125 mg PO BID #90 tab Ticagrelor [Brilinta] 90 mg PO BID #90 tab Primary Care Physician: Catherine Monique MD [Primary Care Provider] - Please follow up with your Primary Care Physician in: 2 weeks. Please Follow Up With: Ye David MD When: please call his office. Patient Instructions: Coronary Stents, Discharge Instructions for Heart Attack Disposition: Home Minutes spent on discharge:: 32 Patient Condition:: Stable Medical Necessity - Tobacco Use Smoking Status: Former smoker Tobacco Use: Non-smoker Meaningful Use Info Meaningful Use Diagnoses (Choose all that apply): AMI - AMI Aspirin given w/in 24hrs of arrival?: Yes ASA at discharge?: Yes Statins at discharge?: Yes Sanket/ARB at discharge?: Yes Beta Vinod at discharge?: Yes Done w/ Acute SD measure.: Yes Code Visit Inpatient E AND M: 55599 Disch Hosp 12/17/17 1311 <Electronically signed by Kian Villegas MD> Date Kian Villegas MD Cosigner Signature (if applicable): Date CC: Ye David MD; Catherine Monique MD; Kian Villegas Signed 12 LEAD ELECTROCARDIOGRAM Observed: 12/17/2017 Status: F Source: [place] 11:18 AM [facility] REPOSITORY [facility] Cardiovascular Services [address] [place] [address] 12 Lead EKG 12/15/17 0137 MR#: [id number] Acct: [id number] Name: RAOUL FRITZ Rep #: [id number] : 1945 72 From: Gab Rosario MD Attending Dr: Uzair Ralph MD Status: DIS IN Ordering Dr: Uzair Ralph MD Date: 12/15/17 Location: ICU Sex: M C Admitted: 12/14/17 Test Reason : STEMI Blood Pressure : / mmHG Vent. Rate : 059 BPM Atrial Rate : 059 BPM P-R Int : 190 ms QRS Dur : 094 ms QT Int : 456 ms P-R-T Axes : 048 037 073 degrees QTc Int : [address]-segment abnormality: consider anterior-lateral myocardial injury/infarct: possibly acute Confirmed by ABRAHAM AMIN, GAB ([id number]), front office manager GLORIA KAY ([id number]) on 12/17/2017 11:18:34 AM Referred By: Uzair Ralph Confirmed By:GAB ROSARIO MD 12/17/17 1118 Date Gab Rosario MD CC: Catherine Monique MD; Uzair Ralph MD Signed 12 LEAD ELECTROCARDIOGRAM Observed: 12/17/2017 Status: F Source: [place] 10:30 AM [facility] REPOSITORY [facility] Cardiovascular Services [address] [place] [address] 12 Lead EKG 12/14/17 2251 MR#: [id number] Acct: [id number] Name: RAOUL FRITZ Rep #: [id number] : 1945 72 From: Gab Rosario MD Attending Dr: Uzair Ralph MD Status: ADM IN Ordering Dr: Raoul Yu MD Date: 12/14/17 Location: ICU Sex: M C Admitted: 12/14/17 Test Reason : CP Blood Pressure : / mmHG Vent. Rate : 057 BPM Atrial Rate : 057 BPM P-R Int : 188 ms QRS Dur : 090 ms QT Int : 434 ms P-R-T Axes : 047 031 063 degrees QTc Int : [address]-segment abnormality: consider anterior-lateral myocardial injury/infarct: possibly acute Confirmed by ABRAHAM AMIN, GAB ([id number]), front office manager GLORIA KAY ([id number]) on 12/17/2017 10:29:33 AM Referred By: Uzair Ralph Confirmed By:GAB ROSARIO MD 12/17/17 1029 Date Gab Rosario MD CC: Catherine Monique MD; Uzair Ralph MD; Raoul Yu MD Signed DISCHARGE INSTRUCTION Observed: 12/17/2017 Status: F Source: [place] 9:37 AM [facility] REPOSITORY [facility] Medical Records Department [address] [place] [address] Instructions for Home/Discharge Instructions 12/17/17 0935 MR#: [id number] Acct: [id number] Name: RAOUL FRITZ Rep #: [id number] : 1945 72 From: Kian Villegas MD PCP: Catherine Monique MD Status: ADM IN - Discharge Diagnoses Current Active Problems: Current Active and Chronic Problems (Last Updated 12/16/17 @ 10:07 by Ary Granados) STEMI (ST elevation myocardial infarction) (Acute 12/15/17) Anterior STEMI Osteoarthritis (Chronic) Elevated BP without diagnosis of hypertension (Acute) You will use the following diet at home:: Cardiac Your food should be the consistency of: Regular Discharge Activity: Return to Normal Activity Weight Bearing Status: Weight bearing as tolerated Call your doctor if you observe: Fever of 101 or Higher, Shortness of breath, Dizziness, Fainting spells, Chest pain, Increased palpitations (irregular heartbeat), Uncontrolled pain Instructions: Coronary Stents, Discharge Instructions for Heart Attack Allergies/Adverse Reactions: Allergies oseltamivir [From Tamiflu] Allergy (Verified 12/14/17 23:19) Anaphylaxis Medications to take at Discharge Aspirin [Aspirin, Baby] 81 mg PO DAILY@0800 #90 tab.chew 08/08/18 Atorvastatin Calcium [Lipitor] 80 mg PO QHS #90 tab 12/17/17 Carvedilol [Coreg (Beta Vinod)] 3.125 mg PO BID #90 tab 12/17/17 Lisinopril [Zestril] 5 mg PO DAILY #90 tab 12/17/17 Ticagrelor [Brilinta] 90 mg PO BID #90 tab 12/17/17 The following prescriptions were given: Aspirin [Aspirin, Baby] 81 mg PO DAILY@0800 #90 tab.chew Atorvastatin Calcium [Lipitor] 80 mg PO QHS #90 tab Lisinopril [Zestril] 5 mg PO DAILY #90 tab Carvedilol [Coreg (Beta Vinod)] 3.125 mg PO BID #90 tab Ticagrelor [Brilinta] 90 mg PO BID #90 tab Primary Care Physician: Catherine Monique MD [Primary Care Provider] - Please follow up with your Primary Care Physician in: 2 weeks. Test Results: Test results from this visit will be discussed in further detail at your follow-up appointment, if applicable. Please Follow Up With: Ye David MD When: please call his office. 12/17/17 0937 <Electronically signed by Kian Villegas MD> Date Kian Villegas MD CC: Ye David MD; Catherine Monique MD; Uzair Ralph MD MAGNESIUM Collected: 12/16/2017 Status: F Source: [place] 8:35 AM [facility] REPOSITORY TYPE CODE TESTS RESULT OUT OF RANGE REFERENCE UNITS LAB L501.5200 1.6-2.6 mg/dL Normal MG 1.8 Performed By: #### L501.5200, L501.5600 #### [facility] [address] [place], [address] POTASSIUM Collected: 12/16/2017 Status: F Source: [place] 8:35 AM [facility] REPOSITORY TYPE CODE TESTS RESULT OUT OF RANGE REFERENCE UNITS LAB L501.5600 3.5-5.1 mmol/L Normal K 4.0 Performed By: #### L501.5200, L501.5600 #### [facility] [address] [place], [address] ECHOCARDIOGRAM COMPLETE Observed: 12/15/2017 Status: F Source: [place] 12:06 PM [facility] REPOSITORY [facility] Cardiovascular Services [address] [place] [address] Echo Complete 12/15/17812 MR#: [id number] Acct: [id number] Name: RAOUL FRITZ Rep #: [id number] : 1945 72 From: Ye David MD Attending Dr: Uzair Ralph MD Status: ADM IN Ordering Dr: Yenifer Crow Date: 12/15/17 Location: ICU Sex: M C Admitted: 12/14/17 Reason For Study: chest pain Procedure This was a 2D Doppler, Color Flow transthoracic echocardiogram. The study was technically difficult. Exam performed portable in ICU/CCU. Left Ventricle Normal size and thickness. The estimated ejection fraction is 40 %. Stage 1 diastolic dysfunction. Anterio-Basal: Mildly hypokinetic. Mid-Anterior : Severely Hypokinetic. Anterior [place] : Akinetic. There are regional wall motion abnormalities as specified. Right Ventricle Normal size and thickness. Normal systolic function. Atria Normal left atrium. Normal right atrium. Normal atrial septum. Mitral Valve The mitral valve is structurally normal. No prolapse or stenosis seen. Tricuspid Valve Normal tricuspid valve. Trivial tricuspid valve insufficiency. Right ventricular systolic pressure estimated to be 18 mmHg. Aortic Valve Trisinus/trileaflet aortic valve. Severe focal aortic valve calcification. Moderate restriction of the aortic valve. Mild aortic stenosis. Pulmonic Valve Normal pulmonic valve. Great Vessels Normal aortic root. Normal arch. Normal inferior vena cava. Inferior vena cava collapse with sniff. Pericardium/Pleural No pericardial effusion. MMode/2D Measurements AND Calculations LVIDd: 4.3 cm IVSd: 1.1 cm LVOT diam: 2.3 cm LVIDs: 3.3 cm LVPWd: 1.1 cm LVOT area: 4.3 cm2 RVDd: 2.7 cm FS: 22.3 % Ao root diam: 3.0 cm LAV(MOD-bp): 54.3 ml LA A4 area: 15.5 cm2 LA dimension: 4.2 cm LAV(MOD-bp) Indexed: 27.7 ml/m2 LAV(MOD-sp2): 50.4 ml LAV(MOD-sp4): 44.1 ml RA A4 area: 11.8 cm2 Doppler Measurements AND Calculations MV E max alfred: 78.8 cm/sec Lat Peak E' Alfred: 6.5 cm/sec Med Peak E' Alfred: 5.8 cm/sec MV A max alfred: 91.8 cm/sec E/E' lat: 12.2 E/E' med: 13.6 MV E/A: 0.86 Ao V2 max: 163.3 cm/sec LV V1 max: 91.7 cm/sec PA V2 max: 93.5 cm/sec Ao max P.7 mmHg LV V1 max P.4 mmHg CINTHIA(V,D): 2.4 cm2 TR max alfred: 182.8 cm/sec TR max P.4 mmHg Interpretation Summary The estimated ejection fraction is 40 %. Stage 1 diastolic dysfunction. There are regional wall motion abnormalities as specified. Trivial tricuspid valve insufficiency. Right ventricular systolic pressure estimated to be 18 mmHg. Mild aortic stenosis, but may be underestimated due to poor LV function. Moderate restriction of the aortic valve. Severe calcification and immobile non coronary cusp of aortic valve. There is no comparison study available. Ordering Physician: Yenifer Crow Referring Physician: Uzair Ralph Performed By: Sonja Cedeño, NANCY, RVT 12/15/17 1206 Date Ye David MD CC: Yenifer Crow; Catherine Monique MD; Uzair Ralph MD Date Dictated: 12/15/17 0813 Date Transcribed: 12/15/17 1206 Bone Grinder: Signed ACT ACTIVATED CLOTTING Collected: 12/15/2017 Status: F Source: JIN TIME 9:05 AM [facility] REPOSITORY TYPE CODE TESTS RESULT OUT OF RANGE REFERENCE UNITS LAB L9100.0100 74-137 sec High ACTk CLOT 169 TIME Performed By: #### L9100.0100 #### [facility] Point of Care [address] [place] [address] EMERGENCY DEPARTMENT Observed: 12/15/2017 Status: F Source: JIN SUMMARY 7:21 AM FORMERLY [facility], [facility]–1983 HOSPITAL REPOSITORY [facility] Medical Records Department [address] [place] [address] Emergency Department Summary 12/14/17 2258 MR#: [id number] Acct: [id number] Name: RAOUL FRITZ Rep #: [id number] : 1945 72 From: Raoul Yu MD PCP: Catherine Monique MD Status: ADM IN - ER Visit Summary Date of Service: 12/14/17 Chief Complaint: Chest pain History of Present Illness: The patient is a [address] Monique. He reports she has substernal chest pain that began 1 hour ago. It is a sharp pain that is 10 out of 10 at worst 9-10 currently. Is worsened by nothing. Transiently relieved by aspirin. He is diaphoretic and short of breath with this. He has never had anything like this before. Physical Examination: Vitals: Stable. Afebrile. General: Diaphoretic and ill appearing. Well-nourished and well-developed. Head: Normocephalic atraumatic. Neck: Supple, no lymphadenopathy. No JVD. Nontender. Cardiovascular: Regular rate and rhythm. No murmurs. Respiratory: No respiratory distress. Clear to auscultation bilaterally. Abdominal: Soft, nontender, nondistended, normal bowel sounds. No guarding, rebound, or peritoneal signs. Back: Nontender. Extremities: Nontender, no edema. Skin: Normal color, no rash. Neurologic: Alert and oriented 3. Cranial nerves II through XII are intact. Normal strength and sensation. Psych: Normal affect. Test Results: EKG is sinus bradycardia at [address] elevation leads V3 and V4 with out reciprocal changes. However, this is a change from his last EKG in April 2013. Emergency Department Course and Treatment: Patient was seen immediately upon arrival in the emergency department. He had taken aspirin at home p.o. He was given Brilinta p.o. He was given a 4000 unit heparin bolus. Treatment Plan: Patient was discussed with Dr. Brandt and will be taken to the [facility]. Disposition: Admitted in serious condition. Impression: 1. ST elevation SD. 2. Critical care time 30 minutes. This note was generated with Fetch MD dictation software. It may contain incorrect words, spelling, and punctuation that were not noted in review of the chart prior to signing ED Disposition - Plan for ED Patient: Chief Complaint: Chest Pain Referrals: Catherine Monique MD [Primary Care Provider] - What to do if you have Problems For any increased pain, shortness of breath, bleeding, nausea or vomiting, chest pain, or any unexpected problems, contact your Primary Care Provider. Call [facility] ([phone]) or report to the closest Emergency Room. Call 911 if necessary. 12/15/17 0721 <Electronically signed by Raoul Yu MD> Date Raoul Yu MD Cosigner Signature (If Indicated): Date CC: Catherine Monique MD ACT ACTIVATED CLOTTING Collected: 12/15/2017 Status: F Source: JIN TIME 7:03 AM [facility] REPOSITORY TYPE CODE TESTS RESULT OUT OF RANGE REFERENCE UNITS LAB L9100.0100 74-137 sec Normal ACTk CLOT 131 TIME Performed By: #### L9100.0100 #### [facility] Point of Care [address] [facility] [place] [address] ACT ACTIVATED CLOTTING Collected: 12/15/2017 Status: F Source: JIN TIME 6:47 AM [facility] REPOSITORY TYPE CODE TESTS RESULT OUT OF RANGE REFERENCE UNITS LAB L9100.0100 74-137 sec Low ACTk CLOT 0 TIME Performed By: #### L9100.0100 #### [facility] Point of Care [address] [place] [address] BASIC METABOLIC Collected: 12/15/2017 Status: F Source: JIN PROFILE (BMP) 4:05 AM [facility] REPOSITORY TYPE CODE TESTS RESULT OUT OF RANGE REFERENCE UNITS LAB L501.0100 74-106 mg/dL High GLU 119 Result Comment: Fasting Glucose result from 100 to 125 mg/dL suggests IMPAIRED HOMEOSTASIS per A.D.A. criteria. Please note revised GLUCOSE reference range effective 2017. LAB L501.1000 7-18 mg/dL Normal BUN 12 LAB L501.1100 0.70-1.30 mg/dL Normal CREAT,SERUM 0.90 Result Comment: The validity of the calculated GFR AND GFRAA in patients over 70 years has not been determined. Clinical correlation is essential. LAB L501.1110 >60 mL/min Normal EST GFR 88 Result Comment: Non- GFR Calc LAB L501.1115 >60 mL/min Normal EST GFR - AA 107 Result Comment: GFR Calc LAB L501.1255 ml/min Normal Estimated CRCL 72.83 LAB L501.1300 10-20 RATIO Normal BUN/CRE 13.3 LAB L501.2200 8.5-10 mg/dL Low .1 CA 7.8 LAB L501.5300 136-14 mmol/L Normal 5 NA 143 LAB L501.5600 3.5-5. mmol/L Normal 1 K 3.9 LAB L501.5900 98-107 mmol/L Normal CL 106 LAB L501.6100 21.0-3 mmol/L Normal 2.0 CO2 27.0 LAB L501.6200 5-15 Normal GAP 10 Performed By: #### L500.2500, L500.4100 #### [facility] [address] [place], [place], [address] LIPID PROFILE Collected: 12/15/2017 Status: F Source: [place] 4:05 AM [facility] REPOSITORY TYPE CODE TESTS RESULT OUT OF RANGE REFERENCE UNITS LAB L501.4900 200 mg/dL Normal CHOL 156 Result Comment: <200 mg/dL Desirable 200-240 mg/dL Borderline >240 mg/dL High Risk LAB L501.5000 mg/dL Normal TRIG 61 Result Comment: The drugs N-Acetylcysteine and Metamizole may falsely depress this assay. Serum Triglycerides Reference Interval Normal <150 mg/dL Borderline high 150 - 199 mg/dL High 200 - 499 mg/dL Very High > or = 500 mg/dL LAB L501.6400 mg/dL Normal HDL 49 Result Comment: The drugs N-Acetylcysteine and Metamizole may falsely depress this assay. Reference Range HDL <40 mg/dL Low HDL Cholesterol HDL >or= 60 mg/dL High HDL Cholesterol LAB L501.6500 0-130 mg/dL Normal LDL 95 LAB L501.6600 5-40 mg/dL Normal VLDL 12 Performed By: #### L500.2500, L500.4100 #### [facility] [address] [place], [address] TROPONIN-I Collected: 12/15/2017 Status: F Source: JIN 4:05 AM [facility] REPOSITORY Order Comment: 'TROP' Serial specimen #1, #2 or #3: 3 'TROP' Serial specimen #1, #2, #3, or #4: 3 TYPE CODE TESTS RESULT OUT OF RANGE REFERENCE UNITS LAB L501.4010 <0.045 ng/mL High alert 28.900 TROPONIN-I Result Comment: Critical Result(s) Called at: 04:50:30 12/15/2017 by: RIVKA SEYMOUR TO [facility]TE [facility] ICU TROPONIN-I EXPECTED VALUES <0.045 Negative 0.045 - 0.590 Consistent with Cardiac Damage > OR = 0.600 Critical Value Not every elevated troponin is indicative of SD. These values should be used with clinical judgement in examining the patient's clinical picture for diagnosis. To establish a diagnosis of SD versus myocardial injury, there must be a demonstrated rise and/or fall in the troponin values, in addition to ischemic symptoms, EKG changes, new regional wall motion abnormality, and/or angiographical evidence. PLEASE NOTE: REFERENCE RANGES EDITED 17 Performed By: #### L501.4010 #### [facility] [address] [place], [address] CBC-COMPLETE BLOOD CNT Collected: 12/15/2017 Status: F Source: JIN NO DIFF 4:05 AM [facility] REPOSITORY TYPE CODE TESTS RESULT OUT OF RANGE REFERENCE UNITS LAB L100.1000 4.4-11.0 K/mm3 Normal WBC 9.3 LAB L100.1200 4.6-6.2 M/mm3 Low RBC 4.52 LAB L100.1300 13.0-16.5 g/dl Normal HGB 14.0 LAB L100.1400 40-54 % Normal HCT 41.4 LAB L100.1500 80-94 fL Normal MCV 91.6 LAB L100.1600 27.0-32.0 pg Normal MCH 31.0 LAB L100.1700 32-36 g/gl Normal MCHC 33.8 LAB L100.1810 11.6-14.6 % Normal RDW CV 13.0 LAB L100.1820 35.1-43.9 fl Normal RDW SD 42.4 LAB L100.1900 150-450 K/mm3 Normal PLT 203 LAB L100.2000 6.2-12.0 fl Normal MPV 10.0 Performed By: #### L100.0500 #### [facility] [address] [facility] [place], [place], [address] CBC-COMPLETE BLOOD CNT Collected: 12/15/2017 Status: F Source: JIN NO DIFF 2:15 AM [facility] REPOSITORY TYPE CODE TESTS RESULT OUT OF RANGE REFERENCE UNITS LAB L100.1000 4.4-11.0 K/mm3 Normal WBC 10.8 LAB L100.1200 4.6-6.2 M/mm3 Low RBC 4.46 LAB L100.1300 13.0-16.5 g/dl Normal HGB 14.0 LAB L100.1400 40-54 % Normal HCT 41.0 LAB L100.1500 80-94 fL Normal MCV 91.9 LAB L100.1600 27.0-32.0 pg Normal MCH 31.4 LAB L100.1700 32-36 g/gl Normal MCHC 34.1 LAB L100.1810 11.6-14.6 % Normal RDW CV 12.9 LAB L100.1820 35.1-43.9 fl Normal RDW SD 42.4 LAB L100.1900 150-450 K/mm3 Normal PLT 196 LAB L100.2000 6.2-12.0 fl Normal MPV 9.9 Performed By: #### L100.0500 #### [facility] [address] [place], [address] TROPONIN-I Collected: 12/15/2017 Status: F Source: JIN 2:15 AM [facility] REPOSITORY Order Comment: 'TROP' Serial specimen #1, #2 or #3: 2 TYPE CODE TESTS RESULT OUT OF RANGE REFERENCE UNITS LAB L501.4010 <0.045 ng/mL High alert 15.200 TROPONIN-I Result Comment: Critical Result(s) Called at: 03:18:55 12/15/2017 by: RIVKA MENDIOLA,TAPEMAN TROPONIN-I EXPECTED VALUES <0.045 Negative 0.045 - 0.590 Consistent with Cardiac Damage > OR = 0.600 Critical Value Not every elevated troponin is indicative of SD. These values should be used with clinical judgement in examining the patient's clinical picture for diagnosis. To establish a diagnosis of SD versus myocardial injury, there must be a demonstrated rise and/or fall in the troponin values, in addition to ischemic symptoms, EKG changes, new regional wall motion abnormality, and/or angiographical evidence. PLEASE NOTE: REFERENCE RANGES EDITED 17 Performed By: #### L501.4010 #### [facility] [address] [place], [address] M R STAPH AUREUS Collected: 12/15/2017 Status: F Source: [place] DNA BY PCR 1:50 AM [facility] REPOSITORY TYPE CODE TESTS RESULT OUT OF RANGE REFERENCE UNITS LAB L8200.1100 Negative Normal MRSA Negative RESULT Performed By: #### L8200.1000 #### [facility] [address] [place], [address] ACT ACTIVATED CLOTTING Collected: 12/15/2017 Status: F Source: JIN TIME 12:41 AM [facility] REPOSITORY TYPE CODE TESTS RESULT OUT OF RANGE REFERENCE UNITS LAB L9100.0100 74-137 sec High ACTk CLOT 208 TIME Performed By: #### L9100.0100 #### [facility] Point of Care [address] [place] [address] ACT ACTIVATED CLOTTING Collected: 12/15/2017 Status: F Source: JIN TIME 12:17 AM [facility] REPOSITORY TYPE CODE TESTS RESULT OUT OF RANGE REFERENCE UNITS LAB L9100.0100 74-137 sec High ACTk CLOT 505 TIME Performed By: #### L9100.0100 #### [facility] Point of Care [address] [place] [address] ACT ACTIVATED CLOTTING Collected: 12/14/2017 Status: F Source: JIN TIME 11:41 PM [facility] TYPE CODE TESTS RESULT OUT OF RANGE REFERENCE UNITS LAB L9100.0100 74-137 sec High ACTk CLOT 169 TIME Performed By: #### L9100.0100 #### [facility] Point of Care [address] [place] [address] HISTORY AND PHYSICAL Observed: 12/14/2017 Status: F Source: [place] EXAM 11:27 PM [facility] REPOSITORY [facility] Medical Records Department [address] [place] [address] History and Physical 12/14/17 2309 MR#: [id number] Acct: [id number] Name: RAOUL FRITZ Rep #: [id number] : 1945 72 From: Yenifer Crow PCP: Catherine Monique MD Status: ADM IN Y Location: ICU ICU06-1 Problem List (1) STEMI (ST elevation myocardial infarction) Status: Acute Qualifiers: Involved coronary artery: right coronary artery Qualified Code(s): I21.11 - ST elevation (STEMI) myocardial infarction involving right coronary artery Comment: Anterior STEMI (2) Elevated BP without diagnosis of hypertension Status: Acute (3) Osteoarthritis Status: Chronic Qualifiers: Osteoarthritis location: knee Osteoarthritis type: unspecified Laterality: left Qualified Code(s): M17.12 - Unilateral primary osteoarthritis, left knee History of Present Illness Date of Admission: 12/14/17 Chief Complaint: Chest pain The patient is a 72 y/o M w/ PMHx: OA, otherwise notably healthy and active on no routine medications who presents to the [facility] ED on 12/14/17 with history of onset mild substernal and central chest pressure, mild 1-2/10 without associated symptoms the day prior in the evening, lasting 30 minutes and resolving with return of symptoms on day of ED presentation 1 hour prior to presentation, noted to have been at rest but prior had been baling hay all day w/ onset similar region, more severe chest pressure, heaviness with associated diaphoresis, dyspnea. He denied any nausea or emesis. Upon initial onset he noted 1-2/10 discomfort and recurrence he rated 9/10. Upon evaluation he noted this was unchanged. He noted he was taking baby ASA daily but has not over the last 2 weeks. He notes he was supposed to have upcoming L TKR. In the ED work-up included T 98.6, heart rate 65, BP 155/76, respiratory rate 20, 97% on room air, CBC with WBC 10.5, hemoglobin 15.8, platelet 280 without left shift but mildly increased lymph, pending coag, pending BMP, pending urine, pending chest x-ray. Cardiology consulted per ED and requested Brilinta 180 mg po load, heparin 4000 units IV 1, aspirin 324 mg po 1 w/ pending cardiac catheterization and intervention as needed. Past Medical History Past Medical History (Chronic Problems): Chronic Problems Osteoarthritis (Chronic) Allergies No Known Allergies Allergy (Verified 12/14/17 22:47) Home Medications: Ambulatory Orders Medication Instructions Recorded NK [NK] 12/14/17 Surgical History: - - Ectomy, left knee arthroscopic surgery. Psychiatric History: No pertinent psych hx Lives: Spouse/ Significant Other Smoking Status: Former smoker - Patient notes quit approximately 21 years prior with 1 pack per day tobacco usage cigarette prior to this. Tobacco Use: Non-smoker Alcohol: None Drugs: None - *Family History Maternal History Items: No pertinent history Paternal History Items: - - Patient notes a paternal family history of heart disease, fatal SD at age 59. Review of Systems Constitutional: Reports: Malaise, Fatigue. Denies: Chills, Fever, Weight Change HEENT: Denies: Head Aches, Sinus Congestion, Sinus Drainage Cardiovascular: Reports: Chest Pain, Chest Pressure, Chest Tightness, Heaviness. Denies: Edema, Light Headedness, Orthopnea, Palpitations, Syncope Respiratory: Reports: Shortness of Breath. Denies: Cough, Shortness of breath at rest, Sputum production Gastrointestinal: Denies: Abdominal Pain, Nausea, Vomiting Genitourinary: Denies: Dysuria Musculoskeletal: Reports: Joint stiffness. Denies: Joint Pain, Joint Tenderness Skin: Denies: Rash, Wounds Neurological: Denies: Numbness, Tingling, Focal weakness Psychiatric: Denies: Anxiety, Depression, Homicidal Ideations, Suicidal Ideations Hematologic/ Lymphatic: Denies: Easy Bruising, Easy Bleeding VTE Information - Inpt Only VTE Present on Admission: No VTE Mechan Device Prophylaxis: SCD's VTE Pharm Prophylaxis ordered?: Yes Patient Problems: Active and Suspected Problems STEMI (ST elevation myocardial infarction) (Acute) Anterior STEMI Elevated BP without diagnosis of hypertension (Acute) Subjective: Laying in the ED bed, diaphoretic, ill-appearing, ongoing chest discomfort. Objective: Physical Examination: General: awake, alert, oriented x 3 and cooperative, seated upright in the ED bed fatigued appearance, diaphoretic, ill-appearing. Skin: normal color, turgor, no icterus, cyanosis. HEENT: AT/NC, EOMI, PERRLA, dry MM, no carotid bruits or JVD noted. Lungs: CTA bilaterally, moderate effort, mild decrease BL bases, no rales, ronchi or wheezing. Heart: Regular rate and rhythm; no gallop, rub audible. Abdomen: soft, NTTP, ND, normal BS, no HSM. Extremities: no cyanosis, clubbing, or edema, distal pulses intact. Neurological: patient awake, alert, oriented x 3; cognitive function intact; pupils equally reactive to light and accomodation; cranial nerves II-XII grossly normal, moving all 4 extremities, no focal deficits, strength related to severely globally decreased secondary to acute presentation. Psychiatric: affect appears overly anxious given acute SD ongoing, no acute evidence of depressive feelings. - Physical Exam Vital Signs Temp Pulse Resp BP Pulse Ox 98.6 F 65 14 158/75 H 97 12/14/17 22:47 12/14/17 22:47 12/14/17 22:55 12/14/17 22:55 12/14/17 22:47 Oxygen Flow Rate (L/min) 2 Oxygen Delivery Method Nasal Cannula Weight: 181 lb 10.574 oz Body Mass Index (BMI) 27.6 Laboratory Tests Past 24 Hrs WBC Pending RBC Pending Hgb Pending Hct Pending Assessment/Plan All Active Problems STEMI (ST elevation myocardial infarction) (Acute) Elevated BP without diagnosis of hypertension (Acute) The patient is a 72 y/o M w/ PMHx: OA, otherwise notably healthy and active on no routine medications who presents to the [facility] ED on 12/14/17 with history of onset mild substernal and central chest pressure, mild 1-2/10 without associated symptoms the day prior in the evening, lasting 30 minutes and resolving with return of symptoms on day of ED presentation 1 hour prior to presentation, noted to have been at rest but prior had been baling hay all day w/ onset similar region, more severe chest pressure, heaviness with associated diaphoresis, dyspnea. (1) Chest Pain w/ Acute STEMI: EKG in ED w/ ST elevations V3-V4 without reciprocal changes noted, changed from prior EKG 04/2013, CXR pending. Trop pending. Will admit to ICU following cardiac catheterization, maintain on a monitored bed, continue serial cardiac enzymes and EKGs. Obtain magnesium level upon admission. Continue medical management w/ asa, low dose BB with change per cardiology discretion given mild bradycardia noted upon ED presentation, add high dose statin w/ AM FLP, brillinta 90 mg BID to start in AM. Cardiology consulted, plan for cardiac catheterization. Maintain NPO pending cardiac catheterization. ASA, NG, morphine. (2) Elevated BP without HTN Dx: Given presentation with #1, start low dose BB, add additional agent SANKET/ARB if appropriate per cardiology discretion, PRN labetolol/lopressor. (3) OA: Notes prior L knee OA w/ arthroscopic surgery w/ planned operative intervention in 2-3 weeks for L TKR, will need to be delayed until cleared per his Supervisor [place] [place] pending interventions as noted. (4) GI Prophylaxis: Famotidine. (5) DVT Prophylaxis: SCDs, heparin 4000 IV x 1 as noted, start chemoprophylaxis if appropriate in AM. Code Visit Inpatient E AND M: [id number] Init Hosp L3 12/14/172 <Electronically signed by Yenifer Crow > Date Yenifer Crow Cosigner Signature: Date (if applicable) CC: Yenifer Crow; Catherine Monique MD Signed CBC W/DIFF, AUTOMATED Collected: 12/14/2017 Status: F Source: JIN 10:54 PM [facility] REPOSITORY TYPE CODE TESTS RESULT OUT OF RANGE REFERENCE UNITS LAB L100.1000 4.4-11.0 K/mm3 Normal WBC 10.5 LAB L100.1200 4.6-6.2 M/mm3 Normal RBC 5.12 LAB L100.1300 13.0-16.5 g/dl Normal HGB 15.8 LAB L100.1400 40-54 % Normal HCT 46.4 LAB L100.1500 80-94 fL Normal MCV 90.6 LAB L100.1600 27.0-32.0 pg Normal MCH 30.9 LAB L100.1700 32-36 g/gl Normal MCHC 34.1 LAB L100.1810 11.6-14.6 % Normal RDW CV 13.0 LAB L100.1820 35.1-43.9 fl Normal RDW SD 42.9 LAB L100.1900 150-450 K/mm3 Normal PLT 280 LAB L100.2000 6.2-12.0 fl Normal MPV 10.1 LAB L100.2100 47-70 % Low NEUT% 42.6 LAB L100.2200 19-41 % High LY% 46.1 LAB L100.2300 0-10 % Normal MONO% 8.4 LAB L100.2400 0-5 % Normal EO% 2.5 LAB L100.2500 0-1 % Normal BASO% 0.2 LAB L100.2550 0.0-0.9 % Normal IM GRAN % 0.200 Result Comment: IG% - Immature Granulocytes (promyelocytes, myelocytes and metamyelocytes) > 1% indicates that a LEFT SHIFT is Present. LAB L100.2620 2.0-7.7 X10 3/uL Normal Absolute Neut 4.5 LAB L100.2720 0.83-4.51 X10 3/ul High Absolute Lymph 4.82 Performed By: #### L100.0100 #### [facility] [address] [place], [place], [address] BASIC METABOLIC Collected: 12/14/2017 Status: F Source: [place] PROFILE (BMP) 10:54 PM [facility] REPOSITORY Order Comment: 'TROP' Serial specimen #1, #2, #3, or #4: 1 TYPE CODE TESTS RESULT OUT OF RANGE REFERENCE UNITS LAB L501.0100 74-106 mg/dL High GLU 122 Result Comment: Fasting Glucose result from 100 to 125 mg/dL suggests IMPAIRED HOMEOSTASIS per A.D.A. criteria. Please note revised GLUCOSE reference range effective 2017. LAB L501.1000 7-18 mg/dL Normal BUN 14 LAB L501.1100 0.70-1.30 mg/dL Normal CREAT,SERUM 1.15 Result Comment: The validity of the calculated GFR AND GFRAA in patients over 70 years has not been determined. Clinical correlation is essential. LAB L501.1110 >60 mL/min Normal EST GFR 67 Result Comment: Non- GFR Calc LAB L501.1115 >60 mL/min Normal EST GFR - AA 80 Result Comment: GFR Calc LAB L501.1255 ml/min Normal Estimated CRCL 57.00 LAB L501.1300 10-20 RATIO Normal BUN/CRE 12.2 LAB L501.2200 8.5-10 mg/dL Normal .1 CA 8.8 LAB L501.5300 136-14 mmol/L Normal 5 NA 140 LAB L501.5600 3.5-5. mmol/L Low 1 K 3.2 LAB L501.5900 98-107 mmol/L Normal CL 105 LAB L501.6100 21.0-3 mmol/L Normal 2.0 CO2 25.0 LAB L501.6200 5-15 Normal GAP 10 Performed By: #### L500.2500, L501.4010 #### [facility] [address] [place], [place], [address] TROPONIN-I Collected: 12/14/2017 Status: F Source: [place] 10:54 PM [facility] REPOSITORY Order Comment: 'TROP' Serial specimen #1, #2, #3, or #4: 1 TYPE CODE TESTS RESULT OUT OF RANGE REFERENCE UNITS LAB L501.4010 <0.045 ng/mL High 0.074 TROPONIN-I Result Comment: TROPONIN-I EXPECTED VALUES <0.045 Negative 0.045 - 0.590 Consistent with Cardiac Damage > OR = 0.600 Critical Value Not every elevated troponin is indicative of SD. These values should be used with clinical judgement in examining the patient's clinical picture for diagnosis. To establish a diagnosis of SD versus myocardial injury, there must be a demonstrated rise and/or fall in the troponin values, in addition to ischemic symptoms, EKG changes, new regional wall motion abnormality, and/or angiographical evidence. PLEASE NOTE: REFERENCE RANGES EDITED 17 Performed By: #### L500.2500, L501.4010 #### [facility] [address] [place], [address] PROTHROMBIN TIME W/INR Collected: 12/14/2017 Status: F Source: [place] 10:54 PM [facility] REPOSITORY TYPE CODE TESTS RESULT OUT OF RANGE REFERENCE UNITS LAB L300.4150 11.7-14.9 SECONDS Normal PROTIME 14.0 LAB L300.4200 Normal INR 1.1 Performed By: #### L300.3900, L300.4310 #### [facility] [address] [place], [address] PARTIAL THROMBOPLAST Collected: 12/14/2017 Status: F Source: J[place] TIME 10:54 PM [facility] REPOSITORY TYPE CODE TESTS RESULT OUT OF RANGE REFERENCE UNITS LAB L300.4310 24.1-36.2 Seconds Normal PTT 25.3 Performed By: #### L300.3900, L300.4310 #### [facility] [address] [place], [address] MAGNESIUM Collected: 12/14/2017 Status: F Source: [place] 10:54 PM [facility] REPOSITORY TYPE CODE TESTS RESULT OUT OF RANGE REFERENCE UNITS LAB L501.5200 1.6-2.6 mg/dL Normal MG 2.0 Performed By: #### L501.5200 #### [facility] [address] [place], [address] CHEST 1 VIEW Observed: 12/14/2017 Status: F Source: J[place] (PORTABLE) 10:51 PM [facility] REPOSITORY [facility] Imaging Services [address] [place] [address] Chest 1 View (Portable) MR#: [id number] Acct: [id number] Name: RAOUL FRITZ Rep #: [id number] : 1945 M 72 From: Victor Hguo Minor MD PCP: Catherine Monique MD Status: ADM IN Study: Chest 1 View (Portable) Date of Exam: 12/14/17 Exam# [id number] Ordering Dr: Raoul Yu MD STUDY: X-RAY CHEST REASON FOR EXAM: Male, 72 years old. CHEST PAIN TECHNIQUE: Single frontal view of the chest. COMPARISON: None. FINDINGS: Chronic appearing increased interstitial lung markings. There is no demonstrated pleural abnormality. Normal heart size. Normal mediastinum and greg. Normal visualized pulmonary arteries. There is atherosclerotic calcification of the aortic arch with tortuosity. There are diffuse degenerative changes of the visualized thoracic spine. There is degenerative osteoarthritis of the bilateral shoulders. There is no demonstrated abnormality of the visualized soft tissue structures of the upper abdomen. RAD/Chest 1 View (Portable) IMPRESSION: There are no acute findings. Electronically Signed: Victor Hugo Minor MD at 23:29 EDT , Service support , CC: Catherine Monique MD; Raoul uY MD Bone Grinder: Signed ALLERGIES ALLERGIES DATE TYPE / CODE NAME / CODE REACTION SEVERITY SOURCE 04/01/2018 Drug oseltamivir Anaphylaxis Unknown [facility] Allergy/4160 /[id number] [facility] [address](SNOMED (RXNORM) Repository CT) ENCOUNTERS ENCOUNTERS ADMIT/DISCHARGE ACCOUNT NUMBER ADMITTING ENCOUNTER LOCATION SOURCE CLASS 04/21/2018 [id number] Ambulatory [facility] ding:CR Repository 04/08/2018/04/10/20 [id number] Ambulatory [address] ding:CR Repository 04/07/2018 [id number] Ambulatory [facility] ding:CVS Repository 04/07/2018 [id number] Ambulatory BMSBuilding: Jin BMS.CF.[facility] Repository 04/01/2018/04/01/20 [id number] Ambulatory BMSBuilding: Jin [address] Repository 03/31/2018 [id number] Ambulatory BMSBuilding: [place] BMS.CF.[facility] Repository 03/31/2018 [id number] Ambulatory [facility] ding:CVS Repository 03/11/2018/03/11/20 [id number] Ambulatory [address] ding:CR Repository 02/06/2018/02/09/20 [id number] Ambulatory [address] ding:CR Repository 01/21/2018/01/22/20 [id number] Ambulatory BMSBuilding: [place] [address] Repository 01/08/2018/01/09/20 [id number] Ambulatory BMSBuilding: Jin 18 [facility] Repository 01/07/2018/01/09/20 [id number] Frankie, Ambulatory [address] ding:ICURoom Repository : [id number]: 1 01/07/2018 [id number] Frankie, Ambulatory BMSBuilding: Jin Ye BMS..[facility] Repository 01/07/2018/01/09/20 [id number] Ambulatory BMSBuilding: [place] 18 [facility] Repository 01/06/2018 [id number] Ambulatory [facility] ding:CR Repository 01/05/2018 [id number] Ambulatory [facility] ding:CVS Repository 01/05/2018 [id number] [facility] 01/01/2018/01/02/20 [id number] Ambulatory BMSBuilding: Jin [address] Repository 12/18/2017 [id number] Ambulatory BBuilding:Critical access hospital Repository 12/14/2017 [id number] Ralph, Ambulatory BMSBuilding: Jin Uzair BMS.Critical access hospital Repository 12/14/2017 [id number] Ralph, Ambulatory BMSBuilding: [place] Uzair BMS.Critical access hospital Repository 12/14/2017 [id number] Ralph, Ambulatory BMSBuilding: [place] Uzair BMS.CF.[facility] Repository 12/14/2017 [id number] Ralph, Ambulatory BMSBuilding: [place] Uzair BMS.Critical access hospital Repository 12/14/2017 [id number] Ralph, Ambulatory BMSBuilding: Jin Dunne BMS.CF.[facility] Repository 12/14/2017 [id number] Ralph, Ambulatory BMSBuilding: Jin Dunne BMS.CF.[facility] Repository 12/14/2017 [id number] Ralph, Ambulatory BMSBuilding: Jin Dunne BMS.Critical access hospital Repository 12/14/2017/12/18/19 [id number] Ralph, Inpatient Jin [place] 18 Uzair Encounter [facility] ding:ICURoom Repository : CAV13Nuc: 1 12/14/2017/12/18/19 [id number] Ambulatory BMSBuilding: [place] [address] [facility] Repository 10/28/2017 [id number] Ambulatory BBuilding:OS [facility] Repository 09/26/2017/12/12/19 [id number] Ambulatory BBuilding:[address] Repository PAYERS PAYERS ENCOUNTER GUARANTOR PAYER SUBSCRIBER SOURCE 04/21/2018 RAOUL E Primary RAOUL E Jin [id number] Insurance:MEDICARE HILTYDOB: Community BLOUGH PART A [facility] [id number] Number: Repository [address]Xvu: 330 [id number] [phone] () Date:2018-01-06 04/21/2018 Secondary RAOUL E Jin Insurance:AARPPolicy HILTYDOB: [facility] Number: [id number] Hospital [id number] Repository Date:6912-68-02ZA [address]Z, [place] [address]KN: 04/21/2018 Tertiary NOT GIVENUNK [place] Insurance:SELF PAY [facility] Number: Effective Repository Date:2018-04-11 04/08/2018 RAOUL E Primary RAOUL E Jin [id number] Insurance:MEDICARE HILTYDOB: Community BLOUGH PART A [facility] [id number], [place] Number: Repository 78[address]Gql: 330 [id number] [phone] () Date:2018-01-06 04/08/2018 Secondary RAOUL E [place] Insurance:AARPPolicy HILTYDOB: Community Number: [id number] Hospital [id number] Repository Date:1651-88-78PT [address]QRIM, [place] [address]GN: 04/08/2018 Tertiary NOT GIVENUNK [place] Insurance:SELF PAY [facility] Number: Effective Repository Date:2018-03-12 04/07/2018 RAOUL E Primary RAOUL E Jin [id number] Insurance:MEDICARE HILTYDOB: Community [facility]OUGH [facility] [id number] Number: Repository 94[address]Nty: 330 [id number] [phone] () Date:2018-04-03 04/07/2018 Secondary RAOUL E Jin Insurance:AARPPolicy HILTYDOB: Community Number: [id number] Hospital [id number] Repository Date:8931-29-01YE [address]TK[place]ATK, [place] [address]EK: 04/07/2018 Tertiary NOT GIVENUNK Jin Insurance:SELF PAY [facility] Number: Effective Repository Date:2018-04-03 04/07/2018 RAOUL E Primary RAOUL E Jin [id number] Insurance:MEDICARE HILTYDOB: Community BLOUGH PART A [facility] [id number], [place] Number: Repository 05[address]Tlb: 330 [id number] [phone] () Date:2018-04-03 04/07/2018 Secondary RAOUL E [place] Insurance:AARPPolicy HILTYDOB: Community Number: [id number] Hospital [id number] Repository Date:8163-96-89QF [address]TCHYOTJ, [place] [address]RS: 04/07/2018 Tertiary NOT GIVENUNK Jin Insurance:SELF PAY [facility] Hospital Number: Effective Repository Date:2018-04-07 04/01/2018 RAOUL E Primary RAOUL E Jin [id number] Insurance:MEDICARE HILTYDOB: Community BLOUGH PART A [facility] [id number], [place] Number: Repository 94852Kii: 330 [id number] [phone] (HP) Date:2018-01-01 04/01/2018 Secondary RAOUL E [place] Insurance:AARPPolicy HILTYDOB: Community Number: [id number] Hospital [id number] Repository Date:8974-47-15CP [address]C, [place] [address]WH: 04/01/2018 Tertiary NOT GIVENUNK [place] Insurance:SELF PAY [facility] Number: Effective Repository Date:2018-03-31 03/31/2018 RAOUL E Primary RAOUL E Jin [id number] Insurance:MEDICARE HILTYDOB: Community BLOUGH PART A [facility] [id number] Number: Repository 113[address]Gdt: 330 [id number] [phone] () Date:2018-01-01 03/31/2018 Secondary RAOUL E [place] Insurance:AARPPolicy HILTYDOB: Community Number: [id number] Hospital [id number] Repository Date:2415-94-18TF [address]TXKVCRF, [place] [address]RS: 03/31/2018 Tertiary NOT GIVENUNK [place] Insurance:SELF PAY [facility] Number: Effective Repository Date:2018-03-31 03/31/2018 RAOUL E Primary RAOUL E [place] [id number] Insurance:MEDICARE HILTYDOB: Community BLOUGH PART A [facility] [id number], [place] Number: Repository 26[address]Xxz: 330 [id number] [phone] (HP) Date:2018-01-01 03/31/2018 Secondary RAOUL E [place] Insurance:AARPPolicy HILTYDOB: Community Number: [id number] Hospital [id number] Repository Date:0429-61-26AP [facility] 536275AVZ[place]VC, [place] [address]WJ: 03/31/2018 Tertiary NOT GIVENUNK Jin Insurance:SELF PAY [facility] Number: Effective Repository Date:2018-01-01 03/11/2018 RAOUL E Primary RAOUL E Jin [id number] Insurance:MEDICARE HILTYDOB: Community BLOUGH PART A [facility] [id number] Number: Repository [address]Mwl: 330 [id number] [phone] () Date:2018-01-06 03/11/2018 Secondary RAOUL E Jin Insurance:AARPPolicy HILTYDOB: Community Number: [id number] Hospital [id number] Repository Date:2887-87-42RM [address]XMPZFZT, [place] [address]YX: 03/11/2018 Tertiary NOT GIVENUNK Jin Insurance:SELF PAY [facility] Number: Effective Repository Date:2018-02-09 02/06/2018 RAOUL E Primary RAOUL E Jin [id number] Insurance:MEDICARE HILTYDOB: Community BLOUGH PART A [facility] [id number] Number: Repository 95884Gsq: 330 [id number] [phone] () Date:2018-01-06 02/06/2018 Secondary RAOUL E [place] Insurance:AARPPolicy HILTYDOB: Community Number: [id number] Hospital [id number] Repository Date:0517-32-80EL [address]NJLQXLI, [place] [address]QC: 02/06/2018 Tertiary NOT GIVENUNK Jin Insurance:SELF PAY [facility] Number: Effective Repository Date:2018-01-06 01/21/2018 RAOUL E Primary RAOUL E [place] [id number] Insurance:MEDICARE HILTYDOB: Community BLOUGH PART A [facility] [id number], [place] Number: Repository 64[address]Wum: 330 [id number] [phone] (HP) Date:2018-01-01 01/21/2018 Secondary RAOUL E Jin Insurance:AARPPolicy HILTYDOB: Community Number: [id number] Hospital [id number] Repository Date:1370-90-57KZ [address]KLDBESG, [place] [address]TF: 01/21/2018 Tertiary NOT GIVENUNK Jin Insurance:SELF PAY [facility] Number: Effective Repository Date:2018-01-21 01/08/2018 RAOUL E Primary RAOUL E Jin [id number] Insurance:MEDICARE HILTYDOB: Community BLOUGH PART A [facility] [id number], [place] Number: Repository [address]Lmy: 330 [id number] [phone] () Date:2017-12-17 01/08/2018 Secondary RAOUL E Jin Insurance:AARPPolicy HILTYDOB: Community Number: [id number] Hospital [id number] Repository Date:1848-48-77EM [address]YMCSBRM, [place] [address]HR: 01/08/2018 Tertiary NOT GIVENUNK [place] Insurance:SELF PAY [facility] Number: Effective Repository Date:2018-01-08 01/07/2018 RAOUL E Primary RAOUL E Jin [id number] Insurance:MEDICARE HILTYDOB: Community BLOUGH PART A [facility] [id number], [place] Number: Repository 18[address]Pni: 330 [id number] [phone] (HP) Date:2017-12-17 01/07/2018 Secondary RAOUL E [place] Insurance:AARPPolicy HILTYDOB: Community Number: [id number] Hospital [id number] Repository Date:9536-75-33LO [address]RANSTLQ, [place] [address]NG: 01/07/2018 Tertiary NOT GIVENUNK Jin Insurance:SELF PAY [facility] Number: Effective Repository Date:2017-12-17 01/07/2018 RAOUL E Primary RAOUL E [place] [id number] Insurance:MEDICARE HILTYDOB: Community BLOUGH PART A [facility] [id number], [place] Number: Repository 90[address]Hql: 330 [id number] [phone] () Date:2017-12-17 01/07/2018 Secondary RAOUL E Jin Insurance:AARPPolicy HILTYDOB: Community Number: [id number] Hospital [id number] Repository Date:2488-00-05XT [address]ZTMDKUK, [place] [address]FE: 01/07/2018 Tertiary NOT GIVENUNK Jin Insurance:SELF PAY [facility] Number: Effective Repository Date:2018-01-07 01/07/2018 RAOUL E Primary RAOUL E [place] [id number] Insurance:MEDICARE HILTYDOB: Community BLOUGH PART A [facility] [id number], [place] Number: Repository [address]Stv: 330 [id number] [phone] () Date:2017-12-17 01/07/2018 Secondary RAOUL E Jin Insurance:AARPPolicy HILTYDOB: Community Number: [id number] Hospital [id number] Repository Date:8595-21-33KP [address]PLGIEPL, [place] [address]YK: 01/07/2018 Tertiary NOT GIVENUNK [place] Insurance:SELF PAY [facility] Number: Effective Repository Date:2018-01-07 01/06/2018 RAOUL E Primary RAOUL E Jin [id number] Insurance:MEDICARE HILTYDOB: Community BLOUGH PART A [facility] [id number], [place] Number: Repository 109[address]Eay: 330 [id number] [phone] (HP) Date:2017-12-19 01/06/2018 Secondary RAOUL E Jin Insurance:AARPPolicy HILTYDOB: Community Number: [id number] Hospital [id number] Repository Date:5005-06-21IN [facility] [address]22PUBIDGM, [place] [address]YP: 01/06/2018 Tertiary NOT GIVENUNK [place] Insurance:SELF PAY [facility] Number: Effective Repository Date:2017-12-19 01/05/2018 RAOUL E Primary RAOUL E [place] [id number] Insurance:MEDICARE HILTYDOB: Community BLOUGH PART A [facility] [id number], [place] Number: Repository 154[address]Ozv: 330 [id number] [phone] () Date:2018-01-01 01/05/2018 Secondary RAOUL E [place] Insurance:AARPPolicy HILTYDOB: Community Number: [id number] Hospital [id number] Repository Date:0398-03-20SU [address]PQISDPU, [place] [address]RE: 01/05/2018 Tertiary NOT GIVENUNK Jin Insurance:SELF PAY [facility] Number: Effective Repository Date:2018-01-01 01/05/2018 RAOUL E Primary RAOUL E Jin [id number] Insurance:MEDICARE HILTYDOB: Community BLOUGH PART A [facility] [id number], [place] Number: Repository 9[address]Ibb: 330 [id number] [phone] () Date:2018-01-01 01/05/2018 Secondary RAOUL E [place] Insurance:AARPPolicy HILTYDOB: Community Number: [id number] Hospital [id number] Repository Date:7384-27-67ZD [address]KGGFSOX, [place] [address]BF: 01/05/2018 Tertiary NOT GIVENUNK Jin Insurance:SELF PAY [facility] Number: Effective Repository Date:2018-01-05 01/01/2018 RAOUL E Primary RAOUL E Jin [id number] Insurance:MEDICARE HILTYDOB: Community BLOUGH PART A [facility] [id number], [place] Number: Repository 159[address]Krv: 330 [id number] [phone] () Date:2017-12-17 01/01/2018 Secondary RAOUL E [place] Insurance:AARPPolicy HILTYDOB: Community Number: [id number] Hospital [id number] Repository Date:1328-86-38ZF [address]QBVPCCO, [place] [address]ST: 01/01/2018 Tertiary NOT GIVENUNK Jin Insurance:SELF PAY [facility] Number: Effective Repository Date:2018-01-01 12/18/2017 [facility] E Primary [facility] HILTYDOB: Insurance:MEDICARE HILTYDOB: [facility] [id number] PART [facility] Number: [id number] Repository [place] [id number] [address] [place], [place] Date:2017-10-28 - [place], [place] [address]Nkl: [phone] 4534-97-43Egrx 984[address]Ord: () Name:[facility] [id number] Administrators LLCPO ()Tel: ([phone]) Iws 34878Slubldgfd, 000-0000 () [place] [address]WX: 12/18/2017 Secondary [facility] Health Insurance:[facility]: [facility] HEALTH-SECONDARY [id number] Repository ONLYPolic Number: 93 [facility] [id number] [place], [place] Date:2017-10-28 [address]Bfy: [phone] [id number] Name:COMBER SETTER Box ()Tel: (755) 506[address]Mpjucds, [place] 000-0000 () [address]UA: 12/14/2017 Raoul Primary [facility]oul [facility] [place] [id number] Insurance:MEDICARE [id number] PART A [place] Number: Repository [address]Vpj: (632) [id number] [phone] () Date:2017-12-14 12/14/2017 Secondary Raoul HiltyDOB: Jin Insurance:AARPPolicy [id number] Community Number: [facility] [id number] Repository Date:6945-74-01MB [facility] 925629RKXTKNM, [place] [address]HU: 12/14/2017 Tertiary NOT GIVENUNK [place] Insurance:SELF PAY Community [facility] Number: Effective Repository Date:2017-12-14 12/14/2017 Raoul Primary Raoul HiltyDOB: Jin [id number] Insurance:MEDICARE [id number] Community [place] PART [place] Number: Repository [address]Mfv: (544) [id number] [phone] () Date:2017-12-14 12/14/2017 Secondary Raoul HiltyDOB: [place] Insurance:AARPPolicy [id number] Community Number: [facility] [id number] Repository Date:6441-00-84BT [facility] 011627JORYAEG, [place] [address]HF: 12/14/2017 Tertiary NOT GIVENUNK [place] Insurance:SELF PAY Community [facility] Number: Effective Repository Date:2017-12-14 12/14/2017 Raoul E Primary Raoul E Jin [id number] Insurance:MEDICARE HiltyDOB: Community [place] [facility] [id number] Number: Repository [address]Icn: 330 [id number] [phone] () Date:2017-12-14 12/14/2017 Secondary Raoul E [place] Insurance:AARPPolicy HiltyDOB: Community Number: [id number] Hospital [id number] Repository Date:8697-56-49XU [facility] 286645YXQGZMC, [place] [address]EN: 12/14/2017 Tertiary NOT GIVENUNK [place] Insurance:SELF PAY Community [facility] Number: Effective Repository Date:2017-12-14 12/14/2017 Raoul E Primary Raoul E [place] [id number] Insurance:MEDICARE HiltyDOB: Community [place] PART A [facility] [id number], [place] Number: Repository [address]Bti: (621) [id number] [phone] () Date:2017-12-14 12/14/2017 Secondary Raoul E [place] Insurance:AARPPolicy HiltyDOB: Community Number: [id number] Hospital [id number] Repository Date:8831-91-87RX [address]MFLOUFF, [place] [address]RH: 12/14/2017 Tertiary NOT GIVENUNK [place] Insurance:SELF PAY [facility] Number: Effective Repository Date:2017-12-14 12/14/2017 Raoul E Primary Raoul E Jin [id number] Insurance:MEDICARE HiltyDOB: Community [place] PART A [facility] [id number], [place] Number: Repository [address]Rat: 330 [id number] [phone] () Date:2017-12-14 12/14/2017 Secondary Raoul E [place] Insurance:AARPPolicy HiltyDOB: Community Number: [id number] Hospital [id number] Repository Date:9335-46-70PI [address]GKWLEWW, [place] [address]CU: 12/14/2017 Tertiary NOT GIVENUNK [place] Insurance:SELF PAY [facility] Number: Effective Repository Date:2017-12-14 12/14/2017 Raoul E Primary Raoul E [place] [id number] Insurance:MEDICARE HiltyDOB: Community [place] PART A [facility] [id number], [place] Number: Repository 327[address]Kdz: ([phone]) [id number] [phone] () Date:2017-12-14 12/14/2017 Secondary Raoul E [place] Insurance:AARPPolicy HiltyDOB: Community Number: [id number] Hospital [id number] Repository Date:3583-73-95RY [address]WEEEWKT, [place] [address]DN: 12/14/2017 Tertiary NOT GIVENUNK Jin Insurance:SELF PAY Community [facility] Number: Effective Repository Date:2017-12-14 12/14/2017 Raoul E Primary Raoul E Jin [id number] Insurance:MEDICARE HiltyDOB: Community [place] PART A [facility] [id number], [place] Number: Repository [address]Upb: 330 [id number] [phone] () Date:2017-12-14 12/14/2017 Secondary Raoul E Jin Insurance:AARPPolicy HiltyDOB: Community Number: [id number] Hospital [id number] Repository Date:4029-25-41OJ [address], [place] [address]UW: 12/14/2017 Tertiary NOT GIVENUNK Jin Insurance:SELF PAY [facility] Number: Effective Repository Date:2017-12-14 12/14/2017 Raoul E Primary Raoul E [place] [id number] Insurance:MEDICARE HiltyDOB: Community [place] PART A [facility] [id number], [place] Number: Repository 23[address]Fbg: 330 [id number] [phone] () Date:2017-12-14 12/14/2017 Secondary Raoul E [place] Insurance:AARPPolicy HiltyDOB: Community Number: [id number] Hospital [id number] Repository Date:5431-73-67JC [facility] 348328KLOY[place]Z, [place] [address]SH: 12/14/2017 Tertiary NOT GIVENUNK [place] Insurance:SELF PAY [facility] Number: Effective Repository Date:2017-12-14 12/14/2017 RAOUL E Primary RAOUL E Jin [id number] Insurance:MEDICARE HILTYDOB: Community BLOUGH PART A [facility] [id number], [place] Number: Repository [address]Rmg: 330 [id number] [phone] (HP) Date:2017-12-14 12/14/2017 Secondary RAOUL E Jin Insurance:AARPPolicy HILTYDOB: Community Number: [id number] Hospital [id number] Repository Date:3509-62-11MJ [address]UVRIFY, [place] [address]IZ: 12/14/2017 Tertiary NOT GIVENUNK Ijn Insurance:SELF PAY Community [facility] Number: Effective Repository Date:2017-12-14 10/28/2017 [facility] E Primary RAOUL [facility] HILTYDOB: Foundation PART BPolicy Number: [id number] Repository [place] [id number] [address] [place], [place] Date:2017-10-28 - [place], [place] [address]Jfu: ([phone]) 3734-62-27Mnnr 226[address]Qgh: () Name:[address] ()Tel: 000) [address]Nlijvuquy, 000-0000 () [place] [address]XH: 10/28/2017 Secondary RAOUL Hue Anguiano Health Insurance:[facility]ID[facility]YD[facility]: [facility] HEALTH-SECONDARY [id number] Repository ONLYPolicy Number: [address] [id number] [place], [place] Date:2017-10-28 [address]Xqv: [phone] [id number] [phone] Name:COMBER SETTER Box (HP)Tel: 000) 481437Zlomltl, [place] 000-0000 () [address]TY: 09/26/2017 [facility] E [facility] Hue Anguiano [facility] Insurance:MEDICARE HILTYDOB: [facility] BPolicy Number: [id number] Repository [place] [id number] [address] [place], [place] Date:2017-09-24 - [place], [place] [address]Rsn: [phone] [id number]: (HP) Name:PCGS [phone] Administrators LLCPO ()Tel: 000 [address] [id number], 000-0000 ([place]) [place] [id number]: 09/26/2017 [facility] [facility] [id number] Repository ONLYPolicy Number: [address] [id number] [place], [place] Date:2017-09-24 [id number]: [phone] [id number] Name:CPO Patton ()Tel: [phone] [place] [phone] () [phone]:
== END ==
PROVIDERS: Family Provider Family Medicine; PCP Family Medicine; Referring Provider Family Medicine; Visit Provider Family Medicine
DX: I71.4 Abdominal aortic aneurysm, without rupture (principal)
CPT/HCPCS: 93978

== ENCOUNTER 2018-04-08 09:15 | Outpatient (RCR) | payer MEDICARE, OTHER, SELFPAY ==
[2018-03-12 00:25] VITALS: BP 124/52; BP 154/70
--- NOTE | 2018-03-20 09:51 | PCM.CR.ITP ---
Exercise - 90-Day Assessment - Visit Date of Eval: 03/20/18 Session #:: 27 - Stages of Change Stages of Change:: Action - Exercise Prescription Mode:: NuStep Frequency (x/week): 3 Duration:: 35 METs: 5.5 Target Heart Rate:: 104-111 max HR 111 - Hypertension Resting Blood Pressure:: 118/56 Peak Exercise Blood Pressure:: 156/60 Medication Changes:: No - Intervention Home Exercise/Activity Goal:: Moderate Exercise 30 min/day x 5 days/wk - Education Goals:: Warm-up, RPE MURTAZA Scale, S/S, Safe Exercise, Self-Monitoring - Exercise Program Goals Exercise Program Goals: Aerobic Activity >30 min Nutrition - Initial Assessment - Program Goals Nutrition Program Goals: LDL <70. Total Cholesterol <200. HDL >45. Triglycerides <150. HgbA1C <7%. BMI <25 - Diabetes Do you monitor your blood sugar at home?: No Nutrition - 90-Day Assessment - Program Goals Nutrition Program Goals: LDL <70. Total Cholesterol <200. HDL >45. Triglycerides <150. HgbA1C <7%. BMI <25 - Visit Date of Eval: 03/20/18 - Stages of Change Stages of Change:: Action - Lipids Has the patient seen the dietitian?: No - Diabetes Diabetes:: No - Weight Management Weight:: 177 lb 8 oz - down 3 pounds this 30-days - Intervention Referral to dietitian:: No - Education Attended class for:: Healthy eating Tobacco - Initial Assessment - Program Goals Tobacco Program Goals: Complete smoking cessation. Attend education classes. Improve Knowledge Test score - Learning Barriers Learning Barriers: Vision - bilateral macular denegerative disease Tobacco - 90-Day Assessment - Program Goals Tobacco Program Goals: Complete smoking cessation. Attend education classes. Improve Knowledge Test score - Stage of Change Stages of Change:: Action - Learning Barriers Learning Barriers: Participates in education - Family Support Do you have family support?: Yes - Tobacco Use Tobacco Use: Non-smoker Do you use smokeless tobacco?: No - Intervention Education Schedule Given:: Yes - Education Attended class for:: Coronary artery disease, Risk factors, Sexuality, Medical compliance, Cardiac A&P, Angina signs & symptoms Psychosocial - Initial Assess - Target Goals Target Goals: Assess presence or absence of depression. Using a valid screening tool, maximizes coping skills. Positive support system - Psychosocial Test Tool Used:: HANDS Depression Questionnaire - Assistive Devices Fall Risk Assessed:: Yes Psychosocial - 90-Day Assess - Target Goals Target Goals: Assess presence or absence of depression. Using a valid screening tool, maximizes coping skills. Positive support system - Stages of Change Stages of Change:: Action - Psychosocial Test Tool Used:: HANDS Depression Questionnaire - Intervention PS - Interventions: Yes Attend Stress Management Classes, Yes Uses Stress Management Skills, No Referral to Mental Health, No Referral to [facility] Case Management, No Referral to Physician - Education Attended classes for:: Coping techniques, Signs & symptoms of depression, Stress management, Relaxation techniques - Patient/Program Goal Preventative Medication(s):: Aspirin, Clopidogrel, Beta adya, Statin/lipid - Assistive Devices Assistive Devices:: None Fall Risk Assessed:: Yes Patient Health Questionnaire 90-Day Re-eval Assessment 1. Little interest or pleasure in doing things: Not at all 2. Feeling down, depressed, or hopeless: Not at all 3. Trouble falling or staying asleep, or sleeping too much: Not at all 4. Feeling tired or having little energy: Not at all 5. Poor appetite or overeating: Not at all 6. Feeling bad about yourself -- or that you are a failure or have let yourself or your family down: Not at all 7. Trouble concentrating on things, such as reading the newspaper or watching television: Not at all 8. Moving or speaking so slowly that other people could have noticed. Or the opposite - being so fidgety or restless that you have been moving around a lot more than usual: Not at all 9. Thoughts that you would be better off , or of hurting yourself in some way: Not at all Total Score: 0 Self-Efficacy 90-Day Re-eval Assessment We would like to know how confident you are in doing certain activities. Please select your confidence level for:: Select your confidence level for the following using the scale 1-10 where 1 is not at all confident and 10 is totally confident. Your score is the average of all 6 responses. Fatigue: How confident are you that you can keep the fatigue caused by your disease from interfering with the things you want to do? Select Number: 10 Physical Discomfort or Pain: How confident are you that you can keep the physical discomfort or pain of your disease from interfering with the things you want to do? Select Number: 10 Emotional Distress: How confident are you that you can keep the emotional distress caused by your disease from interfering with the things you want to do? Select Number: 10 Other Symptoms or Health Problems: How confident are you that you can keep other symptoms or health problems from interfering with the things you want to do? Select Number: 10 Different Tasks and Activities: How confident are you that you can do the different tasks and activities needed to manage your health condition so as to reduce your need to see a doctor? Select Number: 10 Medication: How confident are you that you can do things other than just taking medication to reduce how much your illness affects your everyday life? Select Number: 10 Total Score:: 10
[2018-03-20 09:54] VITALS: BP 118/56; BP 156/60
== END 2018-04-10 23:59 ==
LOC: CR 09:15
PROVIDERS: Family Provider Family Medicine; PCP Family Medicine; Referring Provider Internal Medicine Cardiovascular Disease; Visit Provider Internal Medicine Cardiovascular Disease
DX: I21.3 ST elevation (STEMI) myocardial infarction of unspecified site (principal); I25.10 Atherosclerotic heart disease of native coronary artery without angina pectoris; I25.5 Ischemic cardiomyopathy; I25.2 Old myocardial infarction; Z95.5 Presence of coronary angioplasty implant and graft
CPT/HCPCS: 93798

== ENCOUNTER → 2018-11-24 | Outpatient (CLI) | payer MEDICARE, OTHER, SELFPAY ==
[2018-11-13 10:58] VITALS: BMI 28.1
[2018-11-24 11:21] LABS: AST(SGOT) 16 U/L (15-37); Alanine Aminotransfer ALT/SGPT 21 U/L (16-61); Albumin, Serum 3.5 g/dL (3.2-5.0); Alkaline Phosphatase 88 U/L (45-117); Bilirubin, Direct 0.15 mg/dL (0.00-0.30); Cholesterol 119 mg/dL (200); Globulin 3.8 g/dL (2.2-4.2); High Density Lipoprotein 51 mg/dL; Protein, Total 7.3 g/dL (6.4-8.2); Triglycerides 64 mg/dL; Very Low Density Lipoprotein 13 mg/dL (5-40)
== END | disposition home or self-care (01) ==
LOC: LAB 09:55
PROVIDERS: Family Provider Family Medicine; PCP Family Medicine; Referring Provider Internal Medicine Cardiovascular Disease; Visit Provider Internal Medicine Cardiovascular Disease
DX: E78.5 Hyperlipidemia, unspecified (principal); I25.10 Atherosclerotic heart disease of native coronary artery without angina pectoris; I25.2 Old myocardial infarction
CPT/HCPCS: 36415; 80061; 80076

== ENCOUNTER → 2018-12-01 | Outpatient (CLI) | payer MEDICARE, OTHER, SELFPAY ==
[2018-11-13 10:58] VITALS: BMI 28.1
--- NOTE | 2018-12-01 08:45 | ECHOD_ITS ---
Reason For Study: CAD/ASHD Procedure This was a 2D Doppler, Color Flow transthoracic echocardiogram. Exam performed in department. Left Ventricle Normal size and thickness. The estimated ejection fraction is 65 %. Stage 1 diastolic dysfunction. No regional wall motion abnormalities noted. Right Ventricle Moderately dilated right ventricle. Normal systolic function. Atria Normal left atrium. Normal right atrium. Normal atrial septum. Mitral Valve The mitral valve is structurally normal. No prolapse or stenosis seen. Tricuspid Valve Normal tricuspid valve. Unable to estimate RV systolic pressure due to insufficient tricuspid regurgitant envelope. Aortic Valve Trisinus/trileaflet aortic valve. Immobile non coronary cusp with moderate to severe focal AV leaflet thickening and calcification. Mild aortic stenosis. Peak aortic valve gradient 17 mmHg. Mean aortic valve gradient 10 mmHg. Pulmonic Valve Normal pulmonic valve. Trivial pulmonic valve insufficiency. Great Vessels Normal aortic root. Normal arch. Normal inferior vena cava. Inferior vena cava collapse with sniff. Pericardium/Pleural No pericardial effusion. MMode/2D Measurements & Calculations LVIDd: 4.4 cm IVSd: 1.1 cm LVOT diam: 2.2 cm LVIDs: 3.2 cm LVPWd: 1.0 cm LVOT area: 3.9 cm2 RVDd: 4.4 cm FS: 27.7 % LAV(MOD-bp): 56.0 ml LA A4 area: 16.5 cm2 LA dimension(2D): 3.3 cm LAV(MOD-bp) Indexed: 28.3 ml/m2 LAV(MOD-sp2): 52.3 ml LAV(MOD-sp4): 49.7 ml RA A4 area: 12.4 cm2 Time Measurements MV dec time: 0.26 sec Doppler Measurements & Calculations MV E max alfred: 75.8 cm/sec Lat Peak E' Alfred: 9.2 cm/sec Med Peak E' Alfred: 6.5 cm/sec MV A max alfred: 89.4 cm/sec E/E' lat: 8.2 E/E' med: 11.7 MV E/A: 0.85 Ao V2 max: 209.0 cm/sec LV V1 max: 110.2 cm/sec SV(LVOT): 92.1 ml Ao max P.0 mmHg LV V1 max P.9 mmHg Ao V2 mean: 151.0 cm/sec LV V1 mean P.3 mmHg Ao mean P.9 mmHg LV V1 mean: 70.4 cm/sec Ao V2 VTI: 48.5 cm LV V1 VTI: 23.9 cm CINTHIA(I,D): 1.9 cm2 CINTHIA(V,D): 2.0 cm2 PA V2 max: 119.9 cm/sec Interpretation Summary The estimated ejection fraction is 65 %. Stage 1 diastolic dysfunction. Moderately dilated right ventricle. Unable to estimate RV systolic pressure due to insufficient tricuspid regurgitant envelope. Immobile non coronary cusp with moderate to severe focal AV leaflet thickening and calcification. Mild aortic stenosis. Compared to echo report dated 03/31/2018, no appreciable changes noted. Ordering Physician: Ye David Referring Physician: glenny Monique Performed By: Sonja Cedeño RDCS, RVT
== END | disposition home or self-care (01) ==
LOC: CVS 08:43
PROVIDERS: Family Provider Family Medicine; PCP Family Medicine; Referring Provider Internal Medicine Cardiovascular Disease; Visit Provider Internal Medicine Cardiovascular Disease
DX: Z01.818 Encounter for other preprocedural examination (principal); I25.10 Atherosclerotic heart disease of native coronary artery without angina pectoris; I21.3 ST elevation (STEMI) myocardial infarction of unspecified site; I25.2 Old myocardial infarction; I25.5 Ischemic cardiomyopathy; Z95.5 Presence of coronary angioplasty implant and graft
CPT/HCPCS: 93306

== ENCOUNTER → 2018-12-03 | Outpatient (CLI) | payer MEDICARE, OTHER, SELFPAY ==
[2018-11-13 10:58] VITALS: BMI 28.1
--- NOTE | 2018-12-03 13:36 | STEWCON_ITS ---
Reason For Study: PRE-OP, CAD, ASHD Stress Results Protocol: Dobutatmine Stress Echo Maximum Predicted HR: 148 bpm Target HR: 126 bpm % Maximum Predicted HR: 85 % DurationHeart Rate Stage (mm:ss) (bpm) BP Dose Comment BASELINE 50 155/84 6CC DILUTED DEFINITY USED DSE- 10 MCG 3:17 53 147/8210.00 DSE- 20 MCG 3:07 125 145/9220.00 DSE- 30 MCG 2:46 126 154/9430.00NO SX, NO CP RECOVERY 82 132/80 DENIES COMPLAINT Stress Duration: 9:10 mm:ss Maximum Stress HR: 126 bpm Baseline Echocardiogram Findings The estimated ejection fraction is 65 %. Stress Echo Wall motion Data Resting WM Intermediate WM Stress WM Resting Wall Motion Wall Motion Stress No regional wall motion No regional wall motion abnormalities noted. abnormalities noted. EKG Data The baseline ECG displays normal sinus rhythm. The patient was titrated from 10 mcg to a maximun of 30 mcg of dobutamine during the stress. The maximum heart rate attained was 125 beats per minute. This was 84% of maximum predicted heart rate. During dobutamine infusion, there were no ST or T wave changes noted to suggest ischemia. No clinical angina was noted. Interpretation Summary The estimated ejection fraction is 65 %. Normal, adequate, dobutamine echocardiogram. Negative for ischemia by EKG and echocardiographic anterior. No anginal symptoms noted. Rare PVC noted. Final LVEF is 75%. Decreased sensitivity due to poor echo windows requiring Definity agent. Test terminated due to attainment of target heart rate. No complications. The study was technically difficult. Contrast injection was performed. Ordering Physician: Frankie^Ye^^^ Referring Physician: Ye David Performed By: Risa Miller, RDCS, RVT
== END | disposition home or self-care (01) ==
LOC: CVS 13:35
PROVIDERS: Family Provider Family Medicine; PCP Family Medicine; Referring Provider Internal Medicine Cardiovascular Disease; Visit Provider Internal Medicine Cardiovascular Disease
DX: Z01.818 Encounter for other preprocedural examination (principal); I25.10 Atherosclerotic heart disease of native coronary artery without angina pectoris; I21.3 ST elevation (STEMI) myocardial infarction of unspecified site; I25.2 Old myocardial infarction; I25.5 Ischemic cardiomyopathy; Z95.5 Presence of coronary angioplasty implant and graft
CPT/HCPCS: 93017; 93350; J7040; Q9957; A4216; C8928

== ENCOUNTER 2019-02-08 10:58 | Emergency (ER) | payer MEDICARE, OTHER, SELFPAY ==
[2018-11-13 10:58] VITALS: BMI 28.1
[2019-02-08 10:59] VITALS: BP 135/82; PULSE 64; RESP 15; TEMP 36.9; O2SAT 99; BMI 27.7
--- NOTE | 2019-02-08 11:14 | ED.DCSUM_ITS ---
- ER Visit Summary Date of Service: 02/08/19 Chief Complaint: Facial, lip and tongue swelling. History of Present Illness: The patient is a 73 M with CAD with cardiac stents and prior [place] and hypertension. On an RAHEL inhibitor lisinopril. Basically 5 days ago he has had intermittent facial and hand swelling. Yesterday he developed facial tongue and lip swelling that is progressively gotten worse. Tongue is minor but the lips and face swelling is gotten worse. He is actually seen in [facility] ER earlier today they told him that was angioneurotic edema and a that the watch it. Krishnamurthy that is only gotten worse so they came here. He denies any trouble breathing or swallowing currently. He denies other complaints. Physical Examination: Older male no acute distress vital signs stable afebrile pulse ox 99% on room air no signs of hypoxia. HEENT exam he has facial swelling primarily in the lips minimal of the tongue airways patent no drooling or stridor. Currently his airway is not compromised. Neck nontender. Lungs clear to auscultation. Heart regular rhythm. Abdomen soft and nontender. Moving all 4 extremities. No swelling or edema. Neurologically is awake and alert. Test Results: CBC normal. Chemistries normal. Emergency Department Course and Treatment: I explained to the patient and his his diagnosis. He will be treated with IV Solu-Medrol and Benadryl they understand that this may do nothing for the swelling. He will remain n.p.o. On repeat exams patient is doing well. His swelling has improved. He has no compromises airway and his lips have decreased in the amount of swelling. He and his feel comfortable him being discharged home. Treatment Plan: Prednisone 40 mg a day for 3 days. Completely stop his RAHEL inhibitor. He does not want to be started on blood pressure medication at this time. He will log his blood pressures and follow-up with his primary care physician. He knows to return if increased swelling or any trouble breathing. Disposition: Discharge Impression: Facial and lip swelling secondary to angioneurotic edema secondary to RAHEL inhibitor lisinopril use This note was generated with [employer] dictation software. It may contain incorrect words, spelling, and punctuation that were not noted in review of the chart prior to signing ED Disposition - Plan for ED Patient: Referrals: Flash Monique MD [Primary Care Provider] -
[2019-02-08] MEDS: MethylPREDNISolone 125 MG/2 ML Vial IV (11:21)
[2019-02-08] MEDS: DiphenhydrAMINE 50 MG/ML Syringe 25 MG IV (11:21)
[2019-02-08 11:24] LABS: Hematocrit 41.5 % (40-54); Hemoglobin 13.3 g/dL (13.0-16.5); Mean Corpuscular Hgb 30.6 pg (27.0-32.0); Mean Corpuscular Volume 95.4 fL (80-94); Mean Platelet Vol. 9.4 fl (6.2-12.0); Platelet Count 437 K/mm3 (150-450); RBC Distribution Width CV 13.2 % (11.6-14.6); RBC Distribution Width SD 46.6 fl (35.1-43.9); Red Blood Count 4.35 M/mm3 (4.6-6.2); White Blood Count 8.6 K/mm3 (4.4-11.0)
[2019-02-08 11:33] LABS: Anion Gap 6 (5-15); BUN 15 mg/dL (7-18); BUN/Creat Ratio 17.9 RATIO (10-20); Calcium,Total 8.9 mg/dL (8.5-10.1); Chloride 104 mmol/L (98-107); Creatinine, Serum 0.84 mg/dL (0.70-1.30); EST Glomerular Filtration Rate 95 mL/min (>60); Est Glom Filt Rate - Afr Amer 115 mL/min (>60); Glucose 112 mg/dL (74-106); Potassium 4.2 mmol/L (3.5-5.1); Sodium Level 138 mmol/L (136-145)
[2019-02-08] MEDS: Morphine 4 MG/ML Syringe 6 MG IV (12:04)
[2019-02-08] MEDS: Ondansetron 4 MG/2 ML Vial IV (12:04)
[2019-02-08 12:13] VITALS: BP 153/74; PULSE 65; RESP 15; O2SAT 100
[2019-02-08 13:17] VITALS: BP 121/71; PULSE 66; RESP 14; O2SAT 100
[2019-02-08 14:05] VITALS: BP 133/74; PULSE 70; RESP 14; O2SAT 99
--- NOTE | 2019-02-08 14:06 | ED.RN ---
PT REPORTS FEELS SWELLING IS IMPROVING.
[2019-02-08 15:37] VITALS: BP 128/77; PULSE 65; RESP 16; O2SAT 97
--- NOTE | 2019-02-08 16:01 | ED.DEP ---
ED Disposition - Plan for ED Patient: Disposition: Home or Assisted Living Instructions: ED Angioedema Prescriptions: Prednisone [Deltasone] 40 mg PO DAILY 3 Days tab Prescription Printed Referrals: Flash Monique MD [Primary Care Provider] - As soon as possible Additional Instructions: Hold your lisinopril your blood pressure medication. You can never take any of these type of blood pressure medications again they are called RAHEL inhibitors. You had a severe reaction of that called angioedema. Log your blood pressures twice daily follow-up with your doctor to see if you need to be restarted on blood pressure medication. Return to the ER if you feel worse or have increasing swelling of your face lips or tongue or any trouble breathing or swallowing. Prednisone 40 mg a day for the next 3 days.
[2019-02-08] MEDS: morphine 8 MG/ML Syringe 6 MG IV (16:15)
[2019-02-08 16:20] VITALS: BP 138/73; PULSE 73; RESP 16; O2SAT 98
== END 2019-02-08 16:21 | disposition home or self-care (01) ==
PROVIDERS: Emergency Provider Emergency Medicine; Family Provider Family Medicine; PCP Family Medicine
DX: T78.3XXA Angioneurotic edema, initial encounter (principal); T46.4X5A Adverse effect of angiotensin-converting-enzyme inhibitors, initial encounter; I25.2 Old myocardial infarction; I25.10 Atherosclerotic heart disease of native coronary artery without angina pectoris; I10 Essential (primary) hypertension; Z95.5 Presence of coronary angioplasty implant and graft; Z79.82 Long term (current) use of aspirin; Z79.899 Other long term (current) drug therapy
CPT/HCPCS: 80048; 85027; 96374; 96375; 96376; 99284; A4216; J2405